=== PATIENT | female | born 2000 | race Caucasian/White ===

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

== ENCOUNTER 2021-01-03 07:07 | Day surgery (SDC) | payer BC ==
[2021-01-03 07:25] LABS: Specific Gravity 1.025 (1.005-1.030)
[2021-01-03] MEDS: Ringers Lactate 1,000 ML IV ONE ×2 (07:30→09:12)
[2021-01-03] MEDS ORDERED: CELECOXIB 100 MG CAPSULE ONE ×2 (08:48→08:51)
[2021-01-03] MEDS ORDERED: ACETAMINOPHEN 500 MG TAB ONE (08:49)
[2021-01-03] MEDS ORDERED: BUPIVACA 0.5%/EPI 0.0005%/PF 30 ML VIAL ONE (08:59)
[2021-01-03] MEDS ORDERED: propofoL 200 MG/20 ML VIAL IV ONE (09:02)
[2021-01-03] MEDS ORDERED: ONDANSETRON 4 MG/2 ML VIAL ONE (09:03)
[2021-01-03] MEDS ORDERED: LIDOCAINE 2% MPF 5 ML VIAL ONE (09:03)
[2021-01-03] MEDS ORDERED: NEOSTIGMINE 1 MG/ML -5 ML ONE (09:03)
[2021-01-03] MEDS ORDERED: MIDAZOLAM HCL 2 MG/2 ML INJ ONE (09:03)
[2021-01-03] MEDS ORDERED: ROCURONIUM 50 MG/5 ML VIAL IV ONE (09:03)
[2021-01-03] MEDS ORDERED: FENTANYL CITR 100 MCG/2 ML ONE (09:03)
[2021-01-03] MEDS ORDERED: GLYCOPYRROLATE 0.2 MG/ML SYR ONE (09:03)
[2021-01-03] MEDS ORDERED: dexAMETHasone 10 MG/ML VIAL ONE (09:12)
[2021-01-03] MEDS ORDERED: LIDOCAINE JELLY 2%- 5 ML TUBE ONE (09:14)
--- NOTE | 2021-01-03 10:03 | P.OP ---
Pre-Op Diagnosis: Chronic tonsillitis, Other (Tonsillhypertrophy) Post-Op Diagnosis: Chronic tonsillitis, Other (Tonsil hypertrophy) Procedure: Tonsillectomy Anesthesia: Other (GA via ETT) Fluids/ Blood products: Other (800ml crystalloid) Estimated blood loss: Other (10ml) Specimen: Other (bilateral tonsils) Findings: large, chronically inflammed tonsils with liths Complications: None Implants: None Indication: Patient persistent issues in spite of good medical management. Details of Operation: The patient was brought to the operating room and placed under general anesthesia via endotracheal tube. The head of bed was turned 90 degrees. A Shoulder roll was placed and the neck extended. A head drape was applied. The McIvor mouth gag was placed and suspended from the Headley stand. The oxygen concentrate was confirmed with the freelance digital project manager and was less than forty percent. Weight-based dexamethasone was administered by the freelance digital project manager. The soft palate was palpated and there was no submucous cleft. A red rubber catheter was placed in the nose and secured to retract the soft palate. The tonsils were noted to be extremely large. The left tonsil was grasped with a straight Allis clamp. The bovie electocautery was used to incision the mucosa over the anterior pillar and identify the tonsillar capsule. The tonsil was dissected using cautery and blunt dissection until free from soft tissue attachments. A tonsil ball was placed to aid hemostasis. The right tonsil was removed in a similar manner. On both upper poles, there was brisk bleeding from an arteriole which was clamped and ligated with an 0-0 vicryl endoloop. Diffuse oozing in the left fossa was treated with epi-soaked tonsil sponge for 5 minutes with resulting hemostasis The laryngeal mirror was used to visualize the nasopharynx. The adenoid size was minimal. The adenoids were not removed. Hemostasis was achieved using packing and cautery as needed. Blood loss was minimal. All packing was removed. The tonsillar fossae were injected with 0.5% Marcaine with epinephrine. A total of 2 mL was used. A Salum sump orogastric tube was used to decompress the stomach. The red rubber catheter was removed and used to suction the nasopharynx and nasal cavity. The mouth gag was removed; there was no evidence of injury to the lips, teeth or tongue. The mandible was mobile. Disposition: The patient was then awakened from anesthesia and taken to the recovery room in stable condition.
[2021-01-03] MEDS ORDERED: EPINEPHRINE/PF 1 MG/ML AMP ONE (10:05)
[2021-01-03] MEDS ORDERED: IBUPROFEN 400 MG TAB ONE (11:39)
[2021-01-03 14:24] VITALS: BP 97/43; TEMP 97.2; O2SAT 97
== END 2021-01-03 12:30 | disposition home or self-care (01) ==
LOC: OR 07:07
PROVIDERS: ATTEND Otolaryngology
PROC: 0CTPXZZ Resection of Tonsils, External Approach (ICD-10-PCS; principal; 2021-01-03 08:15)
DX: J35.1 Hypertrophy of tonsils (principal); R03.0 Elevated blood-pressure reading, without diagnosis of hypertension; Z20.822 Contact with and (suspected) exposure to COVID-19
CPT/HCPCS: 81025; 88304; 42826; U0003; J2704; J0171; J3010; J1100; J2710; J7120; J2405; J2250

== ENCOUNTER 2021-02-22 20:53 | Emergency (ER) | payer BC ==
--- OUTSIDE RECORDS SUMMARY | 2021-02-22 20:57 | XMS REPORT | Continuity of Care Document ---
:2000 Author Organization [facility] t Address [address] [place] [address] Care Team Providers Name Role Phone Idalia Burnham Attending Clinician Unavailable KALEB BURNHAM Attending Clinician Unavailable MOLINA Attending Clinician Unavailable Matos Attending Clinician Brent Whitley DO Attending Clinician Lab, Fam Pob I Attending Clinician Unavailable Altagracia DALTON Attending Clinician ALTAGRACIA Attending Clinician Unavailable Doctor Unassigned, Name Attending Clinician Unavailable Cyndee YUN Attending Clinician Unavailable Katey MART Attending Clinician KATEY Attending Clinician Unavailable Rona Emmanuel PA-C Attending Clinician Rona EMMANUEL Attending Clinician Unavailable Sarita MART Attending Clinician Payers Payer Name Policy Type Policy Number Effective Date Expiration Date S ource Problems Condition Condition Condition Status Onset Resolution Last Treating Co mments Source Name Details Category Date Date Treatment Clinician Date Intrauteri Intrauteri Disease Active 2018-03 U nivers ne ne 1-14 ity of 00:00: Jenna s in in 00 Medical teenager teenager Branch Major Major Disease Active Univers depressive depressive 1-12 it y of disorder disorder 00:00: [place] with with 00 Medical single single Branch episode, episode, in partial in partial remission remission Atopic Atopic Disease Active 2016-03 Univers dermatitis dermatitis 0-31 it y of , , 00:00: [place] unspecifie unspecifie 00 Me dical d type d type Branch Allergies, Adverse Reactions, Alerts Allergy Allergy Status Severity Reaction(s) Onset Inactive Treating Comm ents Source Name Type Date Date Clinician FLUOXETI DRUG Active Hives Univers NE HCL INGREDI 09-27 ity of 00:00: [place] 00 Medical Branch Fluoxeti Propensi Active Rash Univer s ne Hcl ty to 09-27 ity of adverse 00:00: [place] reaction 00 Medical s Branch Social History Social Habit Start Date Stop Date Quantity Comments Source Exposure to Yes [facility] SARS-CoV-2 [place] [facility] (event) Branch Alcohol intake 2019-11-03 2019-11-03 Current University 00:00:00 00:00:00 non-drinker of [facility] alcohol Gleason (finding) Tobacco use and 2019-11-03 2019-11-03 Never used Universit y of exposure 00:00:00 00:00:00 [facility] Sex Assigned At [birth year] Universit y of 00:00:00 00:00:00 [facility] Smoking Status Start Date Stop Date Source Never smoker [facility] Medications Ordered Filled Start Stop Current Ordering Indication Dosage Frequency Signature Comments Components Source Medication Medication Date Date Medication? Clinician (SIG) Name Name ondansetron 2020-0 Yes [id number] 4mg Take 1 Univers 4 mg tablet 8-28 tablet by ity of 00:00: mouth [place] 00 every 8 Medical (eight) Branch hours as needed for Nausea and Vomiting (N/V). ondansetron 2020-0 Yes [id number] 4mg Take 1 Univers 4 mg tablet 8-28 tablet by ity of 00:00: mouth [place] 00 every 8 Medical (eight) Branch hours as needed for Nausea and Vomiting (N/V). ondansetron 2020-0 Yes [id number] 4mg Take 1 Univers 4 mg tablet 8-28 tablet by ity of 00:00: mouth [place] 00 every 8 Medical (eight) Branch hours as needed for Nausea and Vomiting (N/V). ondansetron 2020-0 Yes [id number] 4mg Take 1 Univers 4 mg tablet 8-28 tablet by ity of 00:00: mouth [place] 00 every 8 Medical (eight) Branch hours as needed for Nausea and Vomiting (N/V). ondansetron 2020-0 Yes [id number] 4mg Take 1 Univers 4 mg tablet 8-28 tablet by ity of 00:00: mouth [place] 00 every 8 Medical (eight) Branch hours as needed for Nausea and Vomiting (N/V). ondansetron 2020-0 Yes [id number] 4mg Take 1 Univers 4 mg tablet 8-28 tablet by ity of 00:00: mouth [place] 00 every 8 Medical (eight) Branch hours as needed for Nausea and Vomiting (N/V). Breast Pump 2020-0 Yes [id number] Use as Univers [place] 1-21 directed ity of 00:00: [place] 00 Medical Branch Breast Pump 2020-0 Yes [id number] Use as Univers [place] 1-21 directed ity of 00:00: [place] 00 Medical Branch Breast Pump 2020-0 Yes [id number] Use as Univers [place] 1-21 directed ity of 00:00: [place] 00 Medical Branch Breast Pump 2020-0 Yes [id number] Use as Univers [place] 1-21 directed ity of 00:00: [place] 00 Medical Branch Breast Pump 2020-0 Yes [id number] Use as Univers [place] 1-21 directed ity of 00:00: [place] 00 Medical Branch Breast Pump 2020-0 Yes [id number] Use as Univers [place] 1-21 directed ity of 00:00: [place] 00 Medical Branch Breast Pump 2020-0 Yes [id number] Use as Univers [place] 1-21 directed ity of 00:00: [place] 00 Medical Branch Breast Pump 2020-0 Yes [id number] Use as Univers [place] 1-21 directed ity of 00:00: [place] 00 Medical Branch Breast Pump 2020-0 Yes [id number] Use as Univers [place] 1-21 directed ity of 00:00: [place] 00 Medical Branch Breast Pump 2020-0 Yes [id number] Use as Univers [place] 1-21 directed ity of 00:00: [place] 00 Medical Branch Breast Pump 2020-0 Yes [id number] Use as Univers [place] 1-21 directed ity of 00:00: [place] 00 Medical Branch PNV 2019- Yes Take by Univers no.95/maxwell 1-14 mouth. ity of us 17:14: [place] fum/folic 44 Medical ac Branch ( ORAL) PNV 2019- Yes Take by Univers no.95/maxwell 1-14 mouth. ity of us 17:14: [place] [address] Medical ac Branch ( ORAL) PNV 2019- Yes Take by Univers no.95/maxwell 1-14 mouth. ity of us 17:14: [place] [address] Medical ac Branch ( ORAL) PNV 2019- Yes Take by Univers no.95/maxwell 1-14 mouth. ity of us 17:14: [place] [address] Medical ac Branch ( ORAL) PNV 2019- Yes Take by Univers no.95/maxwell 1-14 mouth. ity of us 17:14: [place] [address] Medical ac Branch ( ORAL) PNV 2019- Yes Take by Univers no.95/maxwell 1-14 mouth. ity of us 17:14: [place] [address] Medical ac Branch ( ORAL) PNV 2019- Yes Take by Univers no.95/maxwell 1-14 mouth. ity of us 17:14: [place] [address] Medical ac Branch ( ORAL) PNV 2019- Yes Take by Univers no.95/maxwell 1-14 mouth. ity of us 17:14: [place] [address] Medical ac Branch ( ORAL) PNV 2019- Yes Take by Univers no.95/maxwell 1-14 mouth. ity of us 17:14: [place] [address] Medical ac Branch ( ORAL) PNV 2019- Yes Take by Univers no.95/maxwell 1-14 mouth. ity of us 17:14: [place] [address] Medical ac Branch ( ORAL) PNV 2019- Yes Take by Univers no.95/maxwell 1-14 mouth. ity of us 17:14: [place] [address] Medical ac Branch ( ORAL) albuterol 2019- Yes [id number] 2{puff} Inhale 2 Univers 90 1-14 Puffs ity of mcg/actuati 00:00: every 6 José Manuel as on inhaler 00 (six) Medical hours as Branch needed for Wheezing, Shortness of Breath or Chest tightness. albuterol 2019- Yes [id number] 2{puff} Inhale 2 Univers 90 1-14 Puffs ity of mcg/actuati 00:00: every 6 José Manuel as on inhaler 00 (six) Medical hours as Branch needed for Wheezing, Shortness of Breath or Chest tightness. albuterol 2018-03 Yes [id number] 2{puff} Inhale 2 Univers 90 1-14 Puffs ity of mcg/actuati 00:00: every 6 José Manuel as on inhaler 00 (six) Medical hours as Branch needed for Wheezing, Shortness of Breath or Chest tightness. albuterol 2018-03 Yes [id number] 2{puff} Inhale 2 Univers 90 1-14 Puffs ity of mcg/actuati 00:00: every 6 José Manuel as on inhaler 00 (six) Medical hours as Branch needed for Wheezing, Shortness of Breath or Chest tightness. albuterol 2018-03 Yes [id number] 2{puff} Inhale 2 Univers 90 1-14 Puffs ity of mcg/actuati 00:00: every 6 José Manuel as on inhaler 00 (six) Medical hours as Branch needed for Wheezing, Shortness of Breath or Chest tightness. albuterol 2018-03 Yes [id number] 2{puff} Inhale 2 Univers 90 1-14 Puffs ity of mcg/actuati 00:00: every 6 José [place] as on inhaler 00 (six) Medical hours as Branch needed for Wheezing, Shortness of Breath or Chest tightness. albuterol 2018-03 Yes [id number] 2{puff} Inhale 2 Univers 90 1-14 Puffs ity of mcg/actuati 00:00: every 6 José [place] as on inhaler 00 (six) Medical hours as Branch needed for Wheezing, Shortness of Breath or Chest tightness. albuterol 2018-03 Yes [id number] 2{puff} Inhale 2 Univers 90 1-14 Puffs ity of mcg/actuati 00:00: every 6 José [place] as on inhaler 00 (six) Medical hours as Branch needed for Wheezing, Shortness of Breath or Chest tightness. albuterol 2018-03 Yes [id number] 2{puff} Inhale 2 Univers 90 1-14 Puffs ity of mcg/actuati 00:00: every 6 José [place] as on inhaler 00 (six) Medical hours as Branch needed for Wheezing, Shortness of Breath or Chest tightness. albuterol 2018-03 Yes [id number] 2{puff} Inhale 2 Univers 90 1-14 Puffs ity of mcg/actuati 00:00: every 6 [place] as on inhaler 00 (six) Medical hours as Branch needed for Wheezing, Shortness of Breath or Chest tightness. albuterol 2019-1 Yes [id number] 2{puff} Inhale 2 Univers 90 1-14 Puffs ity of mcg/actuati 00:00: every 6 [place] as on inhaler 00 (six) Medical hours as Branch needed for Wheezing, Shortness of Breath or Chest tightness. No known No Univers medications ity [facility] No known No Univers medications ity [facility] Immunizations Ordered Filled Immunization Date Status Comments [facility] [place] [facility] e Immunization Name Name HPV9 2015-10-03 Completed University of 00:00:00 [facility] HPV9 2015-10-03 Completed University of 00:00:00 [facility] HPV9 2015-10-03 Completed University of 00:00:00 [facility] HPV9 2015-10-03 Completed University of 00:00:00 [facility] HPV9 2015-10-03 Completed University of 00:00:[address] [facility] HPV9 2015-10-03 Completed University of 00:00:00 [facility] HPV9 2015-10-03 Completed University of 00:00:00 [facility] HPV9 2015-10-03 Completed University of 00:00:00 [facility] HPV9 2015-10-03 Completed University of 00:00:00 [facility] HPV9 2015-10-03 Completed University of 00:00:00 [facility] HPV9 2015-10-03 Completed University of 00:00:00 [facility] HPV9 2015-10-03 Completed University of 00:00:00 [facility] HPV9 2015-10-03 Completed University of 00:00:00 [facility] HPV9 2014-10-16 Completed University of 00:00:00 [facility] HPV9 2014-10-16 Completed University of 00:00:00 [facility] HPV9 2014-10-16 Completed University of 00:00:00 [facility] HPV9 2014-10-16 Completed University of 00:00:00 [facility] HPV9 2014-10-16 Completed University of 00:00:00 [facility] HPV9 2014-10-16 Completed University of 00:00:00 [facility] HPV9 2014-10-16 Completed University of 00:00:00 [place] [facility] HPV9 2014-10-16 Completed University of 00:00:00 [place] [facility] HPV9 2014-10-16 Completed University of 00:00:00 [place] [facility] HPV9 2014-10-16 Completed University of 00:00:00 [place] [facility] HPV9 2014-10-16 Completed University of 00:00:00 [place] [facility] HPV9 2014-10-16 Completed University of 00:00:00 [place] [facility] HPV9 2014-10-16 Completed University of 00:00:00 [facility] Vital Signs Vital Name Observation Time Observation Value Comments Source Systolic blood 2019-11-03 14:03:00 125 mm[Hg] Univer sity of pressure [place] [facility] Diastolic blood 2019-11-03 14:03:00 87 mm[Hg] Unive rsity of pressure [place] [facility] Heart rate 2019-11-03 14:03:00 89 /min Universi ty of [facility] Body temperature 2019-11-03 14:03:00 36.61 Eunice Univ ersity of [place] [facility] Respiratory rate 2019-11-03 14:03:00 18 /min Univ ersity of [place] [facility] Body weight 2019-11-03 14:03:00 95.029 kg Universi ty of [place] [facility] Systolic blood 2019-11-03 14:03:00 125 mm[Hg] Univer sity of pressure [place] [facility] Diastolic blood 2019-11-03 14:03:00 87 mm[Hg] Unive rsity of pressure [place] [facility] Heart rate 2019-11-03 14:03:00 89 /min Universi ty of [place] [facility] Body temperature 2019-11-03 14:03:00 36.61 Eunice Univ ersity of [place] [facility] Respiratory rate 2019-11-03 14:03:00 18 /min Univ ersity of [place] [facility] Body weight 2019-11-03 14:03:00 95.029 kg Universi ty of [place] [facility] Systolic blood 2019-04-25 14:17:00 115 mm[Hg] Univer sity of pressure [place] [facility] Diastolic blood 2019-04-25 14:17:00 75 mm[Hg] Unive rsity of pressure [place] [facility] Heart rate 2019-04-25 14:17:00 78 /min Universi ty of [place] [facility] Body temperature 2019-04-25 14:17:00 36.33 Eunice Univ ersity of [place] [facility] Respiratory rate 2019-04-25 14:17:00 17 /min [facility] Body height 2019-04-25 14:17:00 166.5 cm [facility] Body weight 2019-04-25 14:17:00 96.361 kg [facility] BMI 2019-04-25 14:17:00 34.76 kg/m2 [facility] Oxygen saturation in 2019-04-25 14:17:00 97 /min [facility] Arterial blood by [facility] Pulse oximetry [place] Procedures Procedure Date / Time Performed Performing Clinician Sour e POCT TEST 2019-11-03 14:24:00 Gary Del Toro [facility] POCT URINALYSIS 2019-11-03 14:23:00 KateyGary canela [place] o f [facility] NOTICE OF PRIVACY 2019-11-03 13:56:02 Doctor Unassigned, No Univ [facility] PRACTICES Name [facility] EXTERNAL PROVIDER 2018-11-24 05:01:00 Doctor Unassigned, No Univ [facility] RECORDS Name [facility] Encounters Start End Encounter Admission Attending Care Care Encounter Source Date/Time Date/Time Type Type Clinicians Facility Department ID 2021-02-27 Inpatient Rathnayake, [facility] DAYS [id number] 1-2 [facility] 12:00:00 Khalif [id number] [facility] 2021-02-25 Inpatient EL Tej, [facility] DAYS [id number] 1-2 [facility] 11:00:00 Khalif [id number] [facility] 2021-02-14 2021-02-14 Outpatient JOLANTA BURNHAMSE MHSE [id number] MH 12:55:00 21:50:[address] [facility] 2020-12-04 2020-12-04 Outpatient R DE [facility] [id number] Univers 16:20:00 16:20:00 LALA [id number] esther adame [facility] 2020-06-17 2020-06-17 Telephone de [facility] [id number] 00:00:00 00:00:00 Jarod Raymundo [id number] Stef[facility] [id number] Clinic [id number] 2020-06-17 2020-06-17 Telephone de [facility] 1.2.840.114 [id number] Univers 00:00:00 00:00:00 Jarod Raymundo [id number] ity of [place] [facility] [place]2.[place] [facility] [id number] [facility] 225 Branch 2020-05-28 2020-05-28 Patient Gutierrez [facility] [id number] 00:00:00 00:00:00 Outreach Kai PRIMARY [id number] [facility] 4.2.7.2.686 PAVILLION [id number] 2020-05-28 2020-05-28 Patient Gutierrez [facility] 1.2.840.114 [id number] Univers 00:00:00 00:00:00 Outreach Kai PRIMARY [id number] i ty of [facility] 4.2.7.2.686 [place] [id number] [address] 2020-03-02 2020-03-02 Outpatient R [facility] [id number] Univers 16:15:00 16:15:00 [id number] [facility] 2019-12-02 2019-12-02 Laboratory Lab, [facility] 1.2.840.114 [id number] 14:31:28 14:51:28 Only Fam Pob I Health [id number] [place] 4.2.7.2.686 Professio [id number] [place] [address] Office [facility] 2019-12-02 2019-12-02 Laboratory Lab, [facility] Fam Pob I [facility] 1.2. 840.114 [id number] Univers 14:31:28 14:51:28 Only Green, [facility] [id number] ity of [place] 4.2.7.2.686 José Manuel as Professio [phone] [address] Office Building [facility] 2019-12-02 2019-12-02 Outpatient R [facility] [id number] Univers 14:20:00 14:20:00 [id number] [facility] 2019-12-02 2019-12-02 Outpatient R GREEN, [facility] [id number] Univers 14:20:00 14:20:00 APPLE ity [facility] 2019-12-02 2019-12-02 Letter Doctor NINO 1.2.840.114 [id number] 00:00:00 00:00:00 (Out) Unassigned, NICK [id number] [place] [facility] 4.2.7.2.686 [id number] 2019-12-02 2019-12-02 Letter Doctor NINO 1.2.840.114 [id number] Univers 00:00:00 00:00:00 (Out) Unassigned, NICK [id number] ity of [place] [facility] 4.2.7.2.686 José Manuel as [phone] [address] 2019-11-21 2019-11-21 [facility] [id number] Univers 08:20:00 08:20:00 [facility] 2019-11-21 2019-11-21 Outpatient [facility] [id number] Univers 08:20:00 08:20:00 CAMILLA [id number] [facility] 2019-11-16 2019-11-16 [facility] [id number] Univers 14:00:00 14:00:00 CAMILLA [facility] 2019-11-16 2019-11-16 Outpatient [facility] [id number] Univers 14:00:00 14:00:00 [facility] 2019-11-03 2019-11-03 Office Gary Del Toro [facility] 1.2.840.114 [id number] Univers 08:56:18 09:24:12 Visit Jarod [id number] it y [place] 4[place]2.7.2.686 [place] [facility] [id number] [facility] 225 [place] 2019-11-03 2019-11-03 Office Gary Del Toro [facility] 1.2.840.114 [id number] 08:56:18 09:24:12 Visit Jarod [id number] Pediatric 4.2.7.2.686 Clinic [id number] 2019-11-03 2019-11-03 Outpatient R GARY DEL TORO [facility] [id number] Univers 09:00:00 09:00:00 [id number] ity of [facility] 2019-11-03 2019-11-03 Outpatient R GARY DEL TORO [facility] [id number] Univers 09:00:00 09:00:00 ity of [facility] 2019-11-03 2019-11-03 Orders Doctor ONEILL 1.2.840.114 [id number] Univers 00:00:00 00:00:00 Only Unassigned, NICK [id number] ity of [place] [facility] 4.2.7.2.686 José Manuel as [phone] [address] 2019-09-29 2019-09-29 Outpatient [facility] [id number] Univers 10:00:00 10:00:00 CAMILLA [id number] ity [facility] 2019-09-29 2019-09-29 Outpatient [facility] [id number] Univers 10:00:00 10:00:00 CAMILLA ity [facility] 2019-08-03 2019-08-03 Outpatient R [facility] [id number] Univers 15:40:00 15:40:00 [id number] ity of [facility] 2019-08-03 2019-08-03 Outpatient R [facility] [id number] Univers 15:40:00 15:40:00 ity [facility] 2019-05-29 2019-05-29 Telephone [facility] 1.2.840.11 [id number] Univers 00:00:00 00:00:00 , Margo Olivera [id number] it y of [facility] 4[place]2.7.2.686 [place] [facility] [id number] [facility] 225 [place] 2019-04-25 2019-04-25 Outpatient R [facility] [id number] Univers 08:10:00 08:53:36 MARGO ity [facility] 2019-04-25 2019-04-25 Office [facility] 1.2.840.114 [id number] Univers 08:05:29 08:53:36 Visit , Margo Olivera [id number] it y of Pediatric 4.2.7.2.686 [facility] [id number] [address] 2019-03-28 2019-03-28 Telephone Gary Del Toro [facility] 1.2.840.114 [id number] Univers 00:00:00 00:00:00 Jarod [id number] it y of Pediatric 4.2.7.2.686 [facility] [id number] [address] 2018-11-24 2018-11-24 Orders Doctor NINO 1.2.840.114 [id number] Univers 00:00:00 00:00:00 Only Unassigned, NICK [id number] ity of [place] [facility] 4.2.7.2.686 José Manuel as [id number] [address] 2018-11-15 2018-11-15 Telephone [facility] 1.2.840.11 [id number] Univers 00:00:00 00:00:00 Monica Ervin [id number] ity of Pediatric 4.2.7.2.686 Te [facility] [id number] [address] Results Test Description Test Time Test Comments Results Result Comments Source POCT URINALYSIS W SPECIFIC GRAVITY 2019-11-03 14:24:00 Test Item Value Reference Range Interpretation Comme nts POCT U SP GRAV (test code = 3255) 1.020 mg/dl 1.005-1.025 POCT PH U (test code = 3254) 5 mg/dl 5-8 POCT U LEUK EST (test code = 3263) + Negative - Negative POCT U NIT (test code = 3262) neg Negative - Negative POCT U PROT (test code = 3259) Negative - Negative POCT U GLU (test code = 3256) normal Negative - Negative POCT U KETONE (test code = 3258) neg Negative - Negative POCT U UROBILI (test code = 3260) normal 0.2-1 POCT U BILI (test code = 3261) neg Negative - Negative POCT U BLD (test code = 3257) Negative - Negative POCT U COLOR (test code = 3266) yellow POCT U APPEAR (test code = 3267) dark Lab Interpretation (test code = 38991-1) Normal [id number] 14:24:00 Test Item Value Reference Range Interpretation Comments POCT PREG (test code = 1605) Negative On board controls acceptable with C Yes Line (test code = 3574) POCT PREG LOT # (test code = 3575) POCT PREG TEST DATE (test code = 357) Lab Interpretation (test code = Normal 17486-7) [facility] SPECIFIC [id number] 14:24:00 Test Item Value Reference Range Interpretation Comments POCT U SP GRAV (test code = 1.020 mg/dl 1.005-1.025 3255) POCT PH U (test code = 3254) 5 mg/dl 5-8 POCT U LEUK EST (test code = + Negative - Negative 3263) POCT U NIT (test code = 3262) neg Negative - Negative POCT U PROT (test code = Negative - Negative 3259) POCT U GLU (test code = 3256) normal Negative - Negative POCT U KETONE (test code = neg Negative - Negative 3258) POCT U UROBILI (test code = normal 0.2-1 3260) POCT U BILI (test code = neg Negative - Negative 3261) POCT U BLD (test code = 3257) Negative - Negative POCT U COLOR (test code = yellow 3266) POCT U APPEAR (test code = dark 3267) Lab Interpretation (test code Normal = 83840-0) [facility] [id number] 14:24:00 Test Item Value Reference Range Interpretation Comments POCT PREG (test code = 1605) Negative On board controls acceptable with C Yes Line (test code = 3574) POCT PREG LOT # (test code = 3575) POCT PREG TEST DATE (test code = 357) Lab Interpretation (test code = Normal 11159-0) [facility]
--- NOTE | 2021-02-22 22:47 | ER ---
Nurse's Notes [facility] Name: Milvia Murdock Age: 20 yrs Sex: Female : 2000 Arrival Date: 02/22/2021 Time: 20:59 Bed 9 Private MD: Diagnosis: Contusion of right foot Presentation: 02/22 21:03 Chief complaint: Patient states: she had reconstruction surgery to right foot 02/14/21 bb and about 30 minutes ago she was on a knee scooter and fell landing on her right foot which is now painful and she is concerned about ruining the surgery. Coronavirus screen: At this time, the client does not indicate any symptoms associated with coronavirus-19. Ebola Screen: No symptoms or risks identified at this time. Initial Sepsis Screen: Does the patient meet any 2 criteria? No. Patient's initial sepsis screen is negative. Does the patient have a suspected source of infection? No. Patient's initial sepsis screen is negative. Risk Assessment: Do you want to hurt yourself or someone else? Patient reports no desire to harm self or others. Onset of symptoms was February 22, 2021. 21:03 Method Of Arrival: Wheelchair bb 21:03 Acuity: KULDEEP 4 bb Triage Assessment: 21:07 General: Appears in no apparent distress. uncomfortable, Behavior is calm, cooperative. bb Pain: Complains of pain in right foot. Neuro: Level of Consciousness is awake, alert, obeys commands, Oriented to person, place, time, situation. Cardiovascular: Capillary refill < 3 seconds Patient's skin is warm and dry. Respiratory: Respiratory effort is even, unlabored, Respiratory pattern is regular. GI: No signs and/or symptoms were reported involving the gastrointestinal system. Derm: Skin is pink, warm \T\ dry. Musculoskeletal: splint to right foot in place. 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 - Social history:: Smoking status: Patient denies any tobacco usage or history of. Screenin:00 Abuse screen: Denies threats or abuse. Nutritional screening: No deficits noted. bb Tuberculosis screening: No symptoms or risk factors identified. Fall Risk None identified. Assessment: 22:00 Reassessment: No changes from previously documented assessment. Patient is alert, bb oriented x 3, equal unlabored respirations, skin warm/dry/pink. see triage assessment. 23:20 Reassessment: Patient is alert, oriented x 3, equal unlabored respirations, skin bb warm/dry/pink. splint to right lower leg in place, pt verbalized understanding of and agrees to plan of care discharge instructions given pt assisted to exit via wheelchair accompanied by family. Vital Signs: 21:03 BP 117 / 85; Pulse 66; Resp 16 S; Temp 98.8(O); Pulse Ox 100% on R/A; Weight 99.79 kg bb (R); Height 5 ft. 6 in. (167.64 cm) (R); Pain 5/10; 23:21 BP 112 / 70; Pulse 75; Resp 16 S; Temp 98.7(O); Pulse Ox 98% on R/A; bb 21:03 Body Mass Index 35.51 (99.79 kg, 167.64 cm) bb ED Course: 20:59 Patient arrived in ED. wm 21:07 Triage completed. bb 21:07 Arm band placed on Patient placed in waiting room, Patient notified of wait time. X-ray bb ordered. 21:56 Chris Currie NP is PHCP. pm1 21:56 Oswald Rodriguez MD is Attending Physician. pm1 22:00 Patient has correct armband on for positive identification. Adult w/ patient. bb 22:01 XRAY Foot RIGHT 3 View In Process Unspecified. EDMS 22:01 XRAY Ankle RIGHT 3 view In Process Unspecified. EDMS 23:20 Ruma Yañez, RN is Primary Nurse. bb 23:22 No provider procedures requiring assistance completed. Patient did not have IV access bb during this emergency room visit. Administered Medications: No medications were administered Outcome: 22:47 Discharge ordered by . pm1 23:22 Discharged to home via wheelchair, with family. bb 23:22 Condition: stable 23:22 Discharge instructions given to patient, Instructed on discharge instructions, follow up and referral plans. Demonstrated understanding of instructions, follow-up care. 23:22 Patient left the ED. bb Signatures: Dispatcher [employer] DANIEL Luisard, Ruma, RN RN bb Chris Currie, LINE MAINTAINER SECTION LINE MAINTAINER SECTION pm1 Jessica Rosa
--- NOTE | 2021-02-22 22:47 | EDPHYS ---
Physician Documentation [facility] Name: Milvia Murdock Age: 20 yrs Sex: Female : 2000 Arrival Date: 02/22/2021 Time: 20:59 Bed 9 Private MD: ED Physician Oswald Rodriguez HPI: 02/22 22:45 This 20 yrs old Unknown Female presents to ER via Wheelchair with complaints of Fall pm1 Injury. 22:45 Details of fall: The patient fell from an upright position, on a scooter. Patient was pm1 kneeling on her right knee and the scooter slipped from underneath her. She landed on her right heel, and rolled over to the right side. Patient presenting to the ER with complaints of right foot pain and concerns for wound dehiscence. Patient with reconstructive foot surgery recently. Onset: The symptoms/episode began/occurred just prior to arrival. Associated injuries: The patient sustained right foot, pain. The patient has not experienced similar symptoms in the past. The patient has been recently seen by a physician: yesterday, Dressing change. She contacted her sole buffer regarding the injury and he recommended evaluation in the ER and follow-up in his office on Wednesday. 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 - Social history:: Smoking status: Patient denies any tobacco usage or history of. ROS: 22:45 Constitutional: Negative for fever, chills, and weight loss, Cardiovascular: Negative pm1 for chest pain, palpitations, and edema, Respiratory: Negative for shortness of breath, cough, wheezing, and pleuritic chest pain. 22:45 Skin: Negative for injury, rash, and discoloration, Neuro: Negative for headache, weakness, numbness, tingling, and seizure. 22:45 MS/extremity: Positive for pain, of the right foot. 22:45 All other systems are negative. Exam: 22:45 Skin: Wound recheck: Suture laceration closure: the wound is healing well, the edges pm1 are well approximated, no evidence of dehiscence, no drainage, no erythema, no swelling. 22:45 Constitutional: This is a well developed, well nourished patient who is awake, alert, pm1 and in no acute distress. Head/Face: Normocephalic, atraumatic. 22:45 Back: No spinal tenderness. No costovertebral tenderness. Full range of motion. Skin: Warm, dry with normal turgor. Normal color with no rashes, no lesions, and no evidence of cellulitis. 22:45 Cardiovascular: Exam negative for acute changes, Rate: normal, Rhythm: regular, Pulses: no pulse deficits are appreciated. 22:45 Respiratory: Exam negative for acute changes, respiratory distress, shortness of breath. 22:45 Musculoskeletal/extremity: Extremities: grossly normal except: noted in the right foot: Generalized mild swelling to right foot with no focal tenderness present, the right foot Sensation intact. Vital Signs: 21:03 BP 117 / 85; Pulse 66; Resp 16 S; Temp 98.8(O); Pulse Ox 100% on R/A; Weight 99.79 kg bb (R); Height 5 ft. 6 in. (167.64 cm) (R); Pain 5/10; 23:21 BP 112 / 70; Pulse 75; Resp 16 S; Temp 98.7(O); Pulse Ox 98% on R/A; bb 21:03 Body Mass Index 35.51 (99.79 kg, 167.64 cm) bb MDM: 22:25 Patient medically screened. pm1 22:45 Data reviewed: vital signs. Data interpreted: Pulse oximetry: on room air is 100 %. pm1 Interpretation: normal. Counseling: I had a detailed discussion with the patient and/or guardian regarding: the historical points, exam findings, and any diagnostic results supporting the discharge/admit diagnosis, the need for outpatient follow up, to return to the emergency department if symptoms worsen or persist or if there are any questions or concerns that arise at home, Patient given reassurance that she can follow up with her sole buffer on Wednesday. NO wound dehiscence or infection present and X-ray of right foot without any displacement of hardware present. 22:45 ED course: Surgical wounds evaluated and no dehiscence or signs of infection present. pm1 Dressing replaced with Betadine, nonadherent dressing and ample padding placed for current Orthoglass posterior splint. 22:47 ED course: Patient offered pain medication but she refused because she already has pm1 OxyContin as a prescription at home. 02/22 21:10 Order name: XRAY Foot RIGHT 3 View bb 02/22 21:10 Order name: XRAY Ankle RIGHT 3 view bb Administered Medications: No medications were administered Disposition: 02/23 04:25 Co-signature as Attending Physician, Oswald Rodriguez MD. [email or web address] Disposition Summary: 02/22/21 22:47 Discharge Ordered Location: Home pm1 Problem: new pm1 Symptoms: have improved pm1 Condition: Stable pm1 Diagnosis - Contusion of right foot pm1 Followup: pm1 - With: Emergency Department - When: As needed - Reason: Worsening of condition Followup: pm1 - With: Private Physician - When: 2 - 3 days - Reason: Recheck today's complaints, Continuance of care, Re-evaluation by your physician Discharge Instructions: - Discharge Summary Sheet pm1 - Foot Contusion pm1 Forms: - Medication Reconciliation Form pm1 - Thank You Letter pm1 - Antibiotic Education pm1 - Prescription Opioid Use pm1 Signatures: Dispatcher [employer] EDRuma Soni, RAMIRO RN bb Chris Currie, PLANOGRAPH OPERATOR PLANOGRAPH OPERATOR pm1 Oswald Rodriguez MD MD [email or web address]
[2021-02-22 23:35] VITALS: BP 112/70; TEMP 98.7; O2SAT 98
--- NOTE | 2021-02-24 10:56 | RAD REPORT ---
EXAM DESCRIPTION: RAD - Foot Right 3 View - 02/22/2021 10:01 pm CLINICAL HISTORY: PAIN COMPARISON: Foot Right 3 View dated 01/13/2017; Foot Right 3 View dated 09/26/2014 FINDINGS: Right ankle and right foot - multiple projections are submitted Osteotomy changes with hardware in place present in the calcaneus. Postsurgical changes with apparent bony spacer and hardware plate also noted first tarsal metatarsal joint. No acute finding is demonst rated. Bone detail is mildly obscured due to cast.
--- NOTE | 2021-02-24 10:56 | RAD REPORT ---
EXAM DESCRIPTION: RAD - Ankle Right 3 View - 02/22/2021 10:01 pm CLINICAL HISTORY: PAIN COMPARISON: Ankle Left 3 View dated 03/15/2018 FINDINGS: Right ankle and right foot - multiple projections are submitted Osteotomy changes with hardware in place present in the calcaneus. Postsurgical changes with apparent bony spacer and hardware plate also noted first tarsal metatarsal joint. No acute finding is demonst rated. Bone detail is mildly obscured due to cast.
== END 2021-02-22 23:22 | disposition home or self-care (01) ==
LOC: ER 20:53
DX: S90.31XA Contusion of right foot, initial encounter (principal); W05.1XXA Fall from non-moving nonmotorized scooter, initial encounter; Z88.5 Allergy status to narcotic agent
CPT/HCPCS: 99283

== ENCOUNTER 2021-04-30 19:23 | Emergency (ER) | payer BC ==
--- OUTSIDE RECORDS SUMMARY | 2021-04-30 19:27 | XMS REPORT | Continuity of Care Document ---
:2000 Author Organization [facility] t Address [address] [place] [address] Care Team Providers Name Role Phone MOLINA Primary Care Physician Unavailable Idalia Burnham Attending Clinician Unavailable Marifer RN, T Attending Clinician Unavailable ANIBAL Attending Clinician Unavailable Anibal PARKING MANAGER Attending Clinician Sebastien MART Attending Clinician KALEB BURNHAM Attending Clinician Unavailable MOLINA Attending [...] nivers ne ne 1-14 [place] teenager [...] DRUG Active Hives Univers NE HCL INGREDI 7- ity of 00:00: [place] 00 Medical Branch Fluoxeti Propensi Active Rash Univer s ne Hcl ty to 7-23 ity of adverse 00:00: [place] reaction 00 Medical s Branch Social History Social Habit Start Date Stop Date Quantity Comments Source Exposure to Not sure [facility] SARS-CoV-2 [facility] (event) Branch Alcohol intake 2021-04-16 2021-04-16 Current University 00:00:00 00:00:00 non-drinker of [facility] alcohol [place] (finding) Tobacco use and 2014-09-26 2014-09-26 Never used Universit y of exposure 00:00:00 00:00:00 [facility] Sex Assigned At [birth year] Universit y of 00:00:00 00:00:00 [facility] Smoking Status Start Date Stop Date Source Never smoker [facility] Medications Ordered Filled Start Stop Current Ordering Indication Dosage Frequency Signature Comments Components Source Medication Medication Date Date Medication? Clinician (SIG) Name Name ibuprofen 2021- No [id number] 800mg U nivers (IBU) 04-17 ity of tablet 800 01:42: 01:46 [place] mg 00 :00 Medical [place] ibuprofen 2021- No [id number] 800mg 800 mg, Univers (IBU) 2-10 -10 Oral, ity of tablet 800 01:42: 01:46 ONCE, 1 José Manuel as mg 00 :00 dose, On Medical 04/16/21 Branch at 1944, Routine ibuprofen 2021- No [id number] 600mg U nivers (IBU) 2- 02-10 ity of tablet 600 01:31: 01:42 [place] mg 00 :13 Medical Branch PNV 0 Yes Take by Univers no.95/maxwell 2-09 mouth. ity of us 19:28: [place] fum/folic 08 Medical ac Branch ( ORAL) PNV Yes Take by Univers no.95/maxwell 2-09 mouth. ity of 19:28: [place] fum/folic 08 Medical ac Branch ( ORAL) bromphenira Yes [id number] 5mL Take 5 mL Univers mine-pseudo 2-09 by mouth 4 it y of ephedrine-D 00:00: (four[place] (BROMFED 00 times Medical DM) 2-30-10 daily as Bran ch mg/5 mL needed for syrup Congestion /Allergies or Cough. bromphenira Yes [id number] 5mL Take 5 mL Univers mine-pseudo 2-09 by mouth 4 it y of ephedrine-D 00:00: (four[place] (BROMFED 00 times Medical DM) 2-30-10 daily as Bran ch mg/5 mL needed for syrup Congestion /Allergies or Cough. ondansetron 2020-0 Yes [id number] 4mg Take 1 Univers 4 mg tablet 8-28 tablet by ity of 00:00: mouth [place] 00 every 8 Medical (eight) Branch hours as needed for Nausea and Vomiting (N/V). ondansetron 2020-0 Yes [id number] 4mg Take 1 Univers 4 mg tablet 8-28 tablet by ity of 00:00: mouth [place] 00 every 8 Medical (eight) Branch hours as needed for Nausea and Vomiting (N/V). ondansetron 2020-0 Yes [id number] 4mg Take 1 Univers 4 mg tablet 8-28 tablet by ity of 00:00: mouth [place] 00 every 8 Medical (eight) Branch hours as needed for Nausea and Vomiting (N/V). ondansetron 2020-0 Yes [id number] 4mg Take 1 Univers 4 mg tablet 8-28 tablet by ity of 00:00: mouth [place] 00 every 8 Medical (eight) Branch hours as needed for Nausea and Vomiting (N/V). ondansetron 2020-0 Yes [id number] 4mg Take 1 Univers 4 mg tablet 8-28 tablet by ity of 00:00: mouth [place] 00 every 8 Medical (eight) Branch hours as needed for Nausea and Vomiting (N/V). ondansetron 2020-0 Yes [id number] 4mg Take 1 Univers 4 mg tablet 8-28 tablet by ity of 00:00: mouth [place] 00 every 8 Medical (eight) Branch hours as needed for Nausea and Vomiting (N/V). ondansetron 2020-0 Yes [id number] 4mg Take 1 Univers 4 mg tablet 8-28 tablet by ity of 00:00: mouth [place] 00 every 8 Medical (eight) Branch hours as needed for Nausea and Vomiting (N/V). ondansetron 2020-0 Yes [id number] 4mg Take 1 Univers 4 mg tablet 8-28 tablet by ity of 00:00: mouth [place] 00 every 8 Medical (eight) Branch hours as needed for Nausea and Vomiting (N/V). Breast Pump 2020-0 Yes [id number] Use as Univers [place] 1-21 directed ity of 00:00: [place] 00 Medical Branch Breast Pump 2020-0 Yes [id number] Use as Univers [place] 1-21 directed ity of 00:00: [place] 00 Medical Branch Breast Pump 2020-0 Yes [id number] Use as Univers [place] 1-21 directed ity of 00:00: [place] 00 Medical Branch Breast Pump 2020-0 Yes [id number] Use as Univers [place] 1-21 directed ity of 00:00: [place] 00 Medical Branch Breast Pump 2020-0 Yes [id number] Use as Univers [place] 1-21 directed ity of 00:00: [place] 00 Medical Branch Breast Pump 2020-0 Yes [id number] Use as Univers [place] 1-21 directed ity of 00:00: [place] 00 Medical Branch Breast Pump 2020-0 Yes [id number] Use as Univers [place] 1-21 directed ity of 00:00: [place] 00 Medical Branch Breast Pump 2020-0 Yes [id number] Use as Univers [place] 1-21 directed ity of 00:00: [place] 00 Medical Branch Breast Pump 2020-0 Yes [id number] Use as Univers [place] 1-21 directed ity of 00:00: [place] 00 Medical Branch Breast Pump 2020-0 Yes [id number] Use as Univers [place] 1-21 directed ity of 00:00: [place] 00 Medical Branch Breast Pump 2020-0 Yes [id number] Use as Univers [place] 1-21 directed ity of 00:00: [place] 00 Medical Branch Breast Pump 2020-0 Yes [id number] Use as Univers [place] 1-21 directed ity of 00:00: [place] 00 Medical Branch Breast Pump 2020-0 Yes [id number] Use as Univers [place] 1-21 directed ity of 00:00: [place] 00 Medical Branch PNV 2019- Yes Take by Univers no.95/maxwell 1-14 mouth. ity of us 17:14: [place] fum/folic 44 Medical ac Branch ( ORAL) PNV 2019- Yes Take by Univers no.95/maxwell 1-14 mouth. ity of us 17:14: [place] fum/folic 44 Medical ac Branch ( ORAL) PNV 2019- Yes Take by Univers no.95/maxwell 1-14 mouth. ity of us 17:14: [place] fum/folic 44 Medical ac Branch ( ORAL) PNV 2019- Yes Take by Univers no.95/maxwell 1-14 mouth. ity of us 17:14: [place] fum/folic 44 Medical ac Branch ( ORAL) PNV 2019- Yes Take by Univers no.95/maxwell 1-14 mouth. ity of us 17:14: [place] fum/folic 44 Medical ac Branch ( ORAL) PNV 2019- Yes Take by Univers no.95/maxwell 1-14 mouth. ity of us 17:14: [place] fum/folic 44 Medical ac Branch ( ORAL) PNV 2019-1 Yes Take by Univers no.95/maxwell 1-14 mouth. ity of us 17:14: [place] fum/folic 44 Medical ac Branch ( ORAL) PNV 2019- Yes Take by Univers no.95/maxwell 1-14 mouth. ity of us 17:14: [place] fum/folic 44 Medical ac Branch ( ORAL) PNV 2019- Yes Take by Univers no.95/maxwell 1-14 mouth. ity of us 17:14: [place] fum/folic 44 Medical ac Branch ( ORAL) PNV 2019- Yes Take by Univers no.95/maxwell 1-14 mouth. ity of us 17:14: [place] fum/folic 44 Medical ac Branch ( ORAL) PNV 2018-03 Yes Take by Univers no.95/maxwell 1-14 mouth. ity of us 17:14: [place] fum/folic 44 Medical ac Branch ( ORAL) albuterol 2018-03 Yes [id number] 2{puff} Inhale 2 Univers 90 1-14 Puffs ity of mcg/actuati 00:00: every 6 José [place] as on inhaler 00 (six) Medical hours as Branch needed for Wheezing, Shortness of Breath or Chest tightness. albuterol 2018-03 Yes [id number] 2{puff} Inhale 2 Univers 90 1-14 Puffs ity of mcg/actuati 00:00: every 6 José Manuel as on inhaler 00 (six) Medical hours as Branch needed for Wheezing, Shortness of Breath or Chest tightness. albuterol 2018-03 Yes [id number] 2{puff} Inhale 2 Univers 90 1-14 Puffs ity of mcg/actuati 00:00: every 6 José Manuel as on inhaler 00 (six) Medical hours as Branch needed for Wheezing, Shortness of Breath or Chest tightness. albuterol 2018-03 Yes [id number] 2{puff} Inhale 2 Univers 90 1-14 Puffs ity of mcg/actuati 00:00: every 6 José Manuel as on inhaler 00 (six) Medical hours as Branch needed for Wheezing, Shortness of Breath or Chest tightness. albuterol 2018-03 Yes [id number] 2{puff} Inhale 2 Univers 90 1-14 Puffs ity of mcg/actuati 00:00: every 6 José Manuel as on inhaler 00 (six) Medical hours as Branch needed for Wheezing, Shortness of Breath or Chest tightness. albuterol 2018-03 Yes [id number] 2{puff} Inhale 2 Univers 90 1-14 Puffs ity of mcg/actuati 00:00: every 6 [place] as on inhaler 00 (six) Medical hours as Branch needed for Wheezing, Shortness of Breath or Chest tightness. albuterol 2018-03 Yes [id number] 2{puff} Inhale 2 Univers 90 1-14 Puffs ity of mcg/actuati 00:00: every 6 José Manuel as on inhaler 00 (six) Medical hours as Branch needed for Wheezing, Shortness of Breath or Chest tightness. albuterol 2018-03 Yes [id number] 2{puff} Inhale 2 Univers 90 1-14 Puffs ity of mcg/actuati 00:00: every 6 José Manuel as on inhaler 00 (six) Medical hours as Branch needed for Wheezing, Shortness of Breath or Chest tightness. albuterol 2018-03 Yes [id number] 2{puff} Inhale 2 Univers 90 1-14 Puffs ity of mcg/actuati 00:00: every 6 José Manuel as on inhaler 00 (six) Medical hours as Branch needed for Wheezing, Shortness of Breath or Chest tightness. albuterol 2018-03 Yes [id number] 2{puff} Inhale 2 Univers 90 1-14 Puffs ity of mcg/actuati 00:00: every 6 José Manuel as on inhaler 00 (six) Medical hours as Branch needed for Wheezing, Shortness of Breath or Chest tightness. albuterol 2018-03 Yes [id number] 2{puff} Inhale 2 Univers 90 1-14 Puffs ity of mcg/actuati 00:00: every 6 José Manuel as on inhaler 00 (six) Medical hours as Branch needed for Wheezing, Shortness of Breath or Chest tightness. albuterol 2018-03 Yes [id number] 2{puff} Inhale 2 Univers 90 1-14 Puffs ity of mcg/actuati 00:00: every 6 José [place] as on inhaler 00 (six) Medical hours as Branch needed for Wheezing, Shortness of Breath or Chest tightness. albuterol 2018-03 Yes [id number] 2{puff} Inhale 2 Univers 90 1-14 Puffs ity of mcg/actuati 00:00: every 6 José [place] as on inhaler 00 (six) Medical hours as Branch needed for Wheezing, Shortness of Breath or Chest tightness. No known No Univers medications ity [facility] No known No Univers medications ity [facility] Immunizations Ordered Filled Immunization Date Status Comments [facility] e Immunization Name Name HPV9 2015-10-03 Completed University of 00:00:00 [facility] HPV9 2015-10-03 Completed University of 00:00:00 [facility]9 2015-10-03 Completed University of 00:00:00 [facility] Branch HPV9 2015-10-03 Completed University of 00:00:00 [place] [facility] HPV9 2015-10-03 Completed University of 00:00:00 [place] [facility] HPV9 2015-10-03 Completed University of 00:00:00 [place] [facility] HPV9 2015-10-03 Completed University of 00:00:00 [facility] Branch HPV9 2015-10-03 Completed University of 00:00:00 [facility] Branch HPV9 2015-10-03 Completed University of 00:00:00 [place] [facility] HPV9 2015-10-03 Completed University of 00:00:00 [place] [facility] HPV9 2015-10-03 Completed University of 00:00:00 [facility] Branch HPV9 2015-10-03 Completed University of 00:00:00 [facility] Branch HPV9 2015-10-03 Completed University of 00:00:00 [facility] Branch HPV9 2015-10-03 Completed University of 00:00:00 [facility] Branch HPV9 2015-10-03 Completed University of 00:00:00 [facility] Branch HPV9 2014-10-16 Completed University of 00:00:00 [facility] Branch HPV9 2014-10-16 Completed University of 00:00:00 [facility] Branch HPV9 2014-10-16 Completed University of 00:00:00 [facility] Branch HPV9 2014-10-16 Completed University of 00:00:00 [facility] Branch HPV9 2014-10-16 Completed University of 00:00:00 [facility] Branch HPV9 2014-10-16 Completed University of 00:00:00 [facility] Branch HPV9 2014-10-16 Completed University of 00:00:00 [facility] Branch HPV9 2014-10-16 Completed University of 00:00:00 [facility] Branch HPV9 2014-10-16 Completed University of 00:00:00 [facility] Branch HPV9 2014-10-16 Completed University of 00:00:00 [facility] Branch HPV9 2014-10-16 Completed University of 00:00:00 [facility] Branch HPV9 2014-10-16 Completed University of 00:00:00 [facility] Branch HPV9 2014-10-16 Completed University of 00:00:00 [facility] HPV9 2014-10-16 Completed University of 00:00:00 [facility] HPV9 2014-10-16 Completed University of 00:00:00 [facility] Vital Signs Vital Name Observation Time Observation Value Comments Source Systolic blood 2021-04-17 01:20:00 132 mm[Hg] Univer sity of pressure [place] [facility] Diastolic blood 2021-04-17 01:20:00 87 mm[Hg] Unive rsity of pressure [place] [facility] Heart rate 2021-04-17 01:20:00 122 /min Universi ty of [facility] Body temperature 2021-04-17 01:20:00 38.33 Eunice Univ ersity of [facility] Branch Respiratory rate 2021-04-17 01:20:00 16 /min Univ ersity of [place] [facility] Body height 2021-04-17 01:20:00 167.6 cm Universi ty of [place] [facility] [place] Body weight 2021-04-17 01:20:00 106.142 kg Universi ty of [facility] Branch BMI 2021-04-17 01:20:00 37.77 kg/m2 Universi ty of [facility] Body mass index 2021-04-17 01:20:00 98.01 % Unive rsity of (BMI) [Percentile] [facility] ica Per age and sex Branch Oxygen saturation in 2021-04-17 01:20:00 96 /min University Arterial blood by [facility] Pulse oximetry Branch Systolic blood 2019-11-03 14:03:00 125 mm[Hg] Univer sity of pressure [facility] Branch Diastolic blood 2019-11-03 14:03:00 87 mm[Hg] Unive rsity of pressure [facility] Heart rate 2019-11-03 14:03:00 89 /min Universi ty of [facility] Body temperature 2019-11-03 14:03:00 36.61 Eunice Univ ersity of [facility] Branch Respiratory rate 2019-11-03 14:03:00 18 /min Univ ersity of [place] [facility] Body weight 2019-11-03 14:03:00 95.029 kg Universi ty of [facility] Branch Systolic blood 2019-11-03 14:03:00 125 mm[Hg] Univer sity of pressure [facility] Branch Diastolic blood 2019-11-03 14:03:00 87 mm[Hg] Unive rsity of pressure [facility] Branch Heart rate 2019-11-03 14:03:00 89 /min Universi ty of [facility] Body temperature 2019-11-03 14:03:00 36.61 Eunice Univ ersity of [facility] Respiratory rate 2019-11-03 14:03:00 18 /min Univ ersity of [facility] Body weight 2019-11-03 14:03:00 95.029 kg Universi ty [facility] Systolic blood 2019-04-25 14:17:00 115 mm[Hg] Univer sity of pressure [facility] Diastolic blood 2019-04-25 14:17:00 75 mm[Hg] Unive rsity of pressure [facility] Heart rate 2019-04-25 14:17:00 78 /min Universi ty of [facility] Body temperature 2019-04-25 14:17:00 36.33 Eunice [facility] Res[facility] rate 2019-04-25 14:17:00 17 /min [facility] Body height 2019-04-25 14:17:00 166.5 cm Universi ty [facility] Body weight 2019-04-25 14:17:00 [facility] 2019-04-25 14:17:00 34.76 kg/m2 [facility] Oxygen saturation in 2019-04-25 14:17:00 97 /min [facility] blood by [facility] Pulse oximetry Branch Procedures Procedure Date / Time Performed Performing Clinician Sour e POCT MOLECULAR FLU 2021-04-17 01:29:00 [facility] POCT TEST 2019-11-03 14:24:00 Gary Del Toro [facility] POCT URINALYSIS 2019-11-03 14:23:00 KateyGary canela [place] o f [facility] NOTICE OF PRIVACY 2019-11-03 13:56:02 Doctor Unassigned, No Univ ersity of [place] PRACTICES Name Medical Branch EXTERNAL PROVIDER 2018-11-24 05:01:00 Doctor Unassigned, No [facility] Name Medical Branch Encounters Start End Encounter Admission Attending Care Care Encounter Source Date/Time Date/Time Type Type Clinicians Facility Department ID 2021-02-27 Inpatient DEVAN BurnhamCL DAYS [id number] 1-2 [facility] 12:00:00 Khalif [id number] [facility] 2021-02-25 Inpatient EL Tej HCACL DAYS [id number] 1-2 [facility] 11:00:00 Khalif [id number] [facility] 2021-04-17 2021-04-17 Letter MariferNINO antunez [id number] Univers 00:00:00 00:00:00 (Out) Nataliya Shepard NICK [id number] it y of [facility] [id number] José Manuel as [phone] [address] 2021-04-16 2021-04-16 [facility] [id number] Univers 19:20:00 19:38:01 SHARLENE [place] o f [facility] 2021-04-16 2021-04-16 Urgent Anibal, [facility] 1.2.840. [id number] Univers 19:20:00 19:38:01 [facility] [id number] ity [facility] [id number] José Manuel as GALEN?BLEA [phone] [address] MEDICAL OFFICE BUILDING 2021-04-16 2021-04-16 Outpatient R [facility] [id number] Univers 19:20:00 19:20:00 [id number] ity [facility] 2021-02-14 2021-02-14 Outpatient ZARA BURNHAM MHSE [id number] MH 12:55:00 21:50:[address] [facility] 2020-12-04 2020-12-04 Outpatient R DE [facility] [id number] Univers 16:20:00 16:20:00 LALA [id number] ity [facility] 2020-06-17 2020-06-17 Telephone de [facility] 1.2.840.114 [id number] 00:00:00 00:00:00 Jarod Raymundo [id number] [facility] [id number] [facility] [id number] [facility] 2020-06-17 2020-06-17 Telephone de [facility] 1.2.840.114 [id number] Univers 00:00:00 00:00:00 Jarod Raymundo [id number] ity of [facility] 4.2.7.2.686 [place] [facility] [id number] [facility] 225 Branch 2020-05-28 2020-05-28 Patient Gutierrez [facility] 1.2.840.114 [id number] 00:00:00 00:00:00 Outreach Kai PRIMARY [id number] [facility] 4.2.7.2.686 PAVILLION [id number] 2020-05-28 2020-05-28 Patient Gutierrez [facility] 1.2.840.114 [id number] Univers 00:00:00 00:00:00 Outreach Kai PRIMARY [id number] i ty of [facility] 4.2.7.2.686 [place] [id number] [address] 2020-03-02 2020-03-02 Outpatient R [facility] [id number] Univers 16:15:00 16:15:00 [id number] ity [facility] 2019-12-02 2019-12-02 Laboratory Lab, [facility] 1.2.840.114 [id number] 14:31:28 14:51:28 Only Fam Pob I Health [id number] [place] 4.2.7.2.686 Professio [id number] [place] [address] Office Building [facility] 2019-12-02 2019-12-02 Laboratory Lab, [facility] Fam Pob I [facility] 1.2. 840.114 [id number] Univers 14:31:28 14:51:28 Only Apple Mabry [facility] [id number] ity [facility] 4.2.7.2.686 José Manuel as Professio [id number] [facility] [address] [place] Office Building [facility] 2019-12-02 2019-12-02 Outpatient R [facility] [id number] Univers 14:20:00 14:20:00 [id number] [facility] 2019-12-02 2019-12-02 Outpatient [facility] [id number] Univers 14:20:00 14:20:00 APPLE [facility] 2019-12-02 2019-12-02 Letter Doctor ONEILL 1.2.840.114 [id number] 00:00:00 00:00:00 (Out) Unassigned, NICK [id number] [facility] 4.2.7.2.686 [id number] 2019-12-02 2019-12-02 Letter Doctor NINO 1.2.840.114 [id number] Univers 00:00:00 00:00:00 (Out) Unassigned, NICK [id number] ity of [facility] 4.2.7.2.686 José Manuel as [id number] [address] 2019-11-21 2019-11-21 Outpatient [facility] [id number] Univers 08:20:00 08:20:00 CAMILLA [id number] ity [facility] 2019-11-21 2019-11-21 Outpatient R JAMA [facility] [id number] Univers 08:20:00 08:20:00 CAMILLA [facility] 2019-11-16 2019-11-16 Outpatient [facility] [id number] Univers 14:00:00 14:00:00 [facility] 2019-11-16 2019-11-16 Out[facility] [id number] Univers 14:00:00 14:00:00 CAMILLA [facility] 2019-11-03 2019-11-03 Office Kate[facility] 1.2.840.114 [id number] Univers 08:56:18 09:24:12 Visit Jarod [id number] it y of [place].7.2.686 [place] [facility] [id number] [facility] [address] [place] 2019-11-03 2019-11-03 Office Gary Del Toro [facility] 1.2.840.114 [id number] 08:56:18 09:24:12 Visit Jarod [id number] Pediatric 4.2.7.2.686 Clinic [id number] 2019-11-03 2019-11-03 Outpatient GARY CHING [facility] [id number] Univers 09:00:00 09:00:00 [id number] [facility] 2019-11-03 2019-11-03 Outpatient R GARY DEL TORO [facility] [id number] Univers 09:00:00 09:00:00 ity [facility] 2019-11-03 2019-11-03 Orders Doctor ONEILL 1.2.840.114 [id number] Univers 00:00:00 00:00:00 Only Unassigned, NICK [id number] ity of [place] [facility] 4.2.7.2.686 José Manuel as [id number] [address] 2019-09-29 2019-09-29 Outpatient [facility] [id number] Univers 10:00:00 10:00:00 CAMILLA [id number] ity [facility] 2019-09-29 2019-09-29 Outpatient [facility] [id number] Univers 10:00:00 10:00:00 [facility] 2019-08-03 2019-08-03 Outpatient R [facility] [id number] Univers 15:40:00 15:40:00 [id number] ity [facility] 2019-08-03 2019-08-03 Outpatient R [facility] [id number] Univers 15:40:00 15:40:00 ity [facility] 2019-05-29 2019-05-29 Telephone [facility] 1.2.840.11 [id number] Univers 00:00:00 00:00:00 , Margo Olivera [id number] it y of [place].2.[place] [facility] [id number] [address] 2019-04-25 2019-04-25 Outpatient R [facility] [id number] Univers 08:10:00 08:53:36 , MARGO [facility] 2019-04-25 2019-04-25 Office [facility] 1.2.840.114 [id number] Univers 08:05:29 08:53:36 Visit , Margo Olivera [id number] it y of [facility] 4[place]2.7.2.686 [place] [facility] [facility] [id number] [address] 2019-03-28 2019-03-28 Telephone KateyGary canela [facility] 1.2.840.114 [id number] Univers 00:00:00 00:00:00 Jarod [id number] it y of Pediatric 4.2.7.2.686 Te [facility] [id number] [facility] [address] [place] 2018-11-24 2018-11-24 Orders Doctor NINO 1.2.840.114 [id number] Univers 00:00:00 00:00:00 Only Unassigned, NICK [id number] ity of [facility] 4.2.7.2.686 José Manuel as [id number] [place] [address] Branch 2018-11-15 2018-11-15 Telephone Haberthier- [facility] 1.2.840.11 [id number] Univers 00:00:00 00:00:00 Monica Ervin [id number] ity of Pediatric 4.2.7.2.686 Te [facility] [id number] [address] Results Test Description Test Time Test Comments Results Result Comments Source POCT MOLECULAR FLU 2021-04-17 01:33:49 Test Item Value Reference Range Interpretation Comme nts POCT Molecular FluA (test code = 07522-4) Positive Negative A Lab Interpretation (test code = 50736-3) Abnormal [facility] URINALYSIS W SPECIFIC [id number] 14:24:00 Test Item Value Reference Range Interpretation [...] 3267) Lab Interpretation (test code Normal = 64084-2) [facility] [id number] 14:24:00 Test Item Value Reference Range Interpretation Comments POCT PREG (test code = 1605) Negative On board controls acceptable with C Yes Line (test code = 3574) POCT PREG LOT # (test code = 3575) POCT PREG TEST DATE (test code = 3576) Lab Interpretation (test code = Normal 14436-1) [facility] W SPECIFIC [id number] 14:24:00 Test Item Value Reference Range Interpretation [...] 3267) Lab Interpretation (test code Normal = 88181-4) [facility] [id number] 14:24:00 Test Item Value Reference Range Interpretation Comments POCT PREG (test code = 1605) Negative On board controls acceptable with C Yes Line (test code = 3574) POCT PREG LOT # (test code = 3575) POCT PREG TEST DATE (test code = 3576) Lab Interpretation (test code = Normal 47298-7) [facility]
--- NOTE | 2021-04-30 21:10 | RAD REPORT ---
EXAM DESCRIPTION: US - Extremity Venous Uni Ltd - 04/30/2021 8:50 pm CLINICAL HISTORY: PAIN Leg swelling and edema. COMPARISON: Abdomen Exam Limited dated 01/25/2018No comparisons FINDINGS: Right lower extremity venous system was interrogated with Doppler technique. Normal flow, compressibility and augmentation was noted. There is no DVT present. Poorly defined hypoechoic tissue is seen in the area pain. Masses of unclear etiology and may be postoperative in etiology. IMPRESSION: No evidence of right lower extremity deep venous thrombosis.
--- NOTE | 2021-04-30 21:13 | EDPHYS ---
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 20:11 The patient presents with pain, that is acute. The complaints affect the medial aspect rn of right calf. Onset: The symptoms/episode began/occurred 2 week(s) ago. Modifying factors: The symptoms are alleviated by remaining still, the symptoms are aggravated by movement, weight bearing. Associated signs and symptoms: Pertinent negatives calf tenderness, fever, rash, swelling, warmth, weakness. Severity of symptoms: At their worst the symptoms were mild, in the emergency department the symptoms are unchanged. The patient has not experienced similar symptoms in the past. The patient has not recently seen a physician. Pt reports reconstructive surgery to right foot/ankle, for flat feet, surgery was 2 months ago, here for 2 weeks of right leg pain only around surgical scar/incision. NO fever/weakness/rash/discoloration/drainage. Called her surgeon and told to come in to rule out blood clot. . 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 - Social history:: Smoking status: Patient denies any tobacco usage or history of. - Family history:: not pertinent. - Hospitalizations: : No recent hospitalization is reported. ROS: 20:11 Constitutional: Negative for fever, chills, and weight loss, Cardiovascular: Negative rn for chest pain, palpitations, and edema, Respiratory: Negative for shortness of breath, cough, wheezing, and pleuritic chest pain, Abdomen/GI: Negative for abdominal pain, nausea, vomiting, diarrhea, and constipation, Back: Negative for injury and pain, MS/Extremity: + right medial calf pain near incision. Skin: Negative for injury, rash, and discoloration, Neuro: Negative for headache, weakness, numbness, tingling, and seizure. Exam: 20:11 Constitutional: This is a well developed, well nourished patient who is awake, alert, rn and in no acute distress. Head/Face: Normocephalic, atraumatic. Cardiovascular: Regular rate and rhythm. No pulse deficits. Respiratory: No increased work of breathing, no retractions or nasal flaring. Skin: Warm, dry with normal turgor. Normal color with no rashes, no lesions, and no evidence of cellulitis. Right medial calf with surgical scar, closed, well-healed, no swelling or discoloration noted. MS/ Extremity: Pulses equal, no cyanosis. Neurovascular intact. Full, normal range of motion. Equal circumference. Neuro: Awake and alert, GCS 15 Vital Signs: 19:46 BP 113 / 63; Pulse 107; Resp 16 S; Temp 97.4(TE); Pulse Ox 98% on R/A; Weight 104.33 kg bb (R); Height 5 ft. 6 in. (167.64 cm) (R); Pain 4/10; 20:27 BP 113 / 61; Pulse 85; Resp 18 S; Pulse Ox 100% on R/A; as6 21:00 BP 113 / 73; Pulse 78; Resp 16; Pulse Ox 100% on R/A; st1 19:46 Body Mass Index 37.12 (104.33 kg, 167.64 cm) bb MDM: 19:42 Patient medically screened. rn 21:11 Differential diagnosis: tendonitis, DVT. Data reviewed: vital signs, nurses notes, rn radiologic studies, doppler, and as a result, I will discharge patient. Counseling: I had a detailed discussion with the patient and/or guardian regarding: the historical points, exam findings, and any diagnostic results supporting the discharge/admit diagnosis, radiology results, the need for outpatient follow up, to return to the emergency department if symptoms worsen or persist or if there are any questions or concerns that arise at home. Special discussion: I discussed with the patient/guardian in detail that at this point there is no indication for admission to the hospital. It is understood, however, that if the symptoms persist or worsen the patient needs to return immediately for re-evaluation. ED course: U/S neg for DVT. Will f/u with surgeon for other causes of pain. Just recently started ambulating and reports had tendon surgery with it, might just be tight or neuropathic pain. . 04/30 19:50 Order name: Extremity Venous Uni Ltd US; Complete Time: 21:11 rn Administered Medications: No medications were administered Disposition Summary: 04/30/21 21:12 Discharge Ordered Location: Home rn Problem: an ongoing problem rn Symptoms: are unchanged rn Condition: Stable rn Diagnosis - Pain in right lower leg rn Followup: rn - With: Private Physician - When: As needed - Reason: Recheck today's complaints, Re-evaluation by your physician Discharge Instructions: - Discharge Summary Sheet rn - Musculoskeletal Pain rn Forms: - Medication Reconciliation Form rn - Thank You Letter rn - Antibiotic government documents librarian - Prescription Opioid Use rn Signatures: Dispatcher [employer] Ruma Lima, RAMIRO RN Krunal Owens MD MD rn
--- NOTE | 2021-04-30 21:13 | ER ---
Nurse's Notes [facility] Name: Milvia Murdock Age: 20 yrs Sex: Female : 2000 Arrival Date: 04/30/2021 Time: 19:26 Bed 2 Private MD: Diagnosis: Pain in right lower leg Presentation: 04/30 19:46 Chief complaint: Patient states: she had reconstruction surgery to right foot in February and is experiencing a lot of burning to incision area her surgeon recommended getting a doppler to check for a blood clot. Coronavirus screen: At this time, the client does not indicate any symptoms associated with coronavirus-19. Ebola Screen: No symptoms or risks identified at this time. Initial Sepsis Screen: Does the patient meet any 2 criteria? No. Patient's initial sepsis screen is negative. Does the patient have a suspected source of infection? No. Patient's initial sepsis screen is negative. Risk Assessment: Do you want to hurt yourself or someone else? Patient reports no desire to harm self or others. Onset of symptoms is unknown. 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 - Social history:: Smoking status: Patient denies any tobacco usage or history of. - Family history:: not pertinent. - Hospitalizations: : No recent hospitalization is reported. Screenin:28 Abuse screen: Denies threats or abuse. Denies injuries from another. Nutritional as6 screening: No deficits noted. Tuberculosis screening: No symptoms or risk factors identified. Fall Risk None identified. Assessment: 20:26 General: Appears in no apparent distress. Behavior is calm, cooperative. Pain: as6 Complains of pain in medial aspect of right calf. Derm: Skin temperature is warm surgical scare to inner right calf. Vital Signs: 19:46 BP 113 / 63; Pulse 107; Resp 16 S; Temp 97.4(TE); Pulse Ox 98% on R/A; Weight 104.33 kg bb (R); Height 5 ft. 6 in. (167.64 cm) (R); Pain 4/10; 20:27 BP 113 / 61; Pulse 85; Resp 18 S; Pulse Ox 100% on R/A; as6 21:00 BP 113 / 73; Pulse 78; Resp 16; Pulse Ox 100% on R/A; st1 19:46 Body Mass Index 37.12 (104.33 kg, 167.64 cm) ED Course: 19:26 Patient arrived in ED. ja2 19:37 Tal Nolasco, RN is Primary Nurse. as6 19:42 Krunal Mendez MD is Attending Physician. rn 19:49 Triage completed. bb 19:50 Arm band placed on Patient placed in an exam room, on a stretcher, on pulse oximetry. bb Family accompanied patient. 20:28 Placed in gown. Bed in low position. Call light in reach. Side rails up X2. Adult w/ as6 patient. Pulse ox on. NIBP on. Warm blanket given. 20:50 Extremity Venous Uni Ltd US In Process Unspecified. EDMS 21:18 No provider procedures requiring assistance completed. Patient did not have IV access st1 during this emergency room visit. Administered Medications: No medications were administered Outcome: 21:12 Discharge ordered by . rn 21:23 Discharged to home ambulatory. as6 21:23 Condition: stable 21:23 Discharge instructions given to patient, Instructed on discharge instructions, follow up and referral plans. Demonstrated understanding of instructions, follow-up care. 21:23 Patient left the ED. as6 Signatures: Dispatcher [employer] EDMS Ruma Yañez RN Krunal Taylor MD MD rn Alexander, Jessica ja2 Tal Nolasco, RN RAMIRO as6 Kristine Cheng RN RN st1
[2021-04-30 21:38] VITALS: TEMP 97.4
[2021-04-30 21:40] VITALS: O2SAT 100
[2021-04-30 21:41] VITALS: BP 113/73
== END 2021-04-30 21:23 | disposition home or self-care (01) ==
LOC: ER 19:23
DX: M79.661 Pain in right lower leg (principal); Z88.5 Allergy status to narcotic agent
CPT/HCPCS: 93971; 99283

== ENCOUNTER 2022-01-31 01:18 | Emergency (ER) | payer BC, OTHER ==
--- OUTSIDE RECORDS SUMMARY | 2022-01-31 01:22 | XMS REPORT | Continuity of Care Document ---
:2000 Author Organization [facility] t Address [address] [place] [address] Care Team Providers Name Role Phone NOMAN CHAMPION Primary Care Physician Unavailable Khalif Burnham Attending Clinician Unavailable NOMAN CHAMPION Attending Clinician Unavailable Noman Champion MD Attending Clinician Lab, Ang - Db Attending Clinician Unavailable Phuong Larkin MA Attending Clinician Unavailable 2, Adc Lab Attending Clinician Unavailable Petrona Perez MD Attending Clinician PETRONA PEREZ Attending Clinician Unavailable Doctor Unassigned, [place] Attending Clinician Unavailable Nataliya Caicedo RN Attending Clinician Unavailable REBECCA BARNETT Attending Clinician Unavailable Rebecca Oro Attending Clinician Lucretia Crowe MD Attending Clinician KHALIF BURNHAM Attending Clinician Unavailable Matos, Stefani Attending Clinician Kai Whitley DO Attending Clinician Lab, Adc Fam Pob I Attending Clinician Unavailable Altagracia DALTON, Apple Attending Clinician APPLE FRIAS Attending Clinician Unavailable CAMILLA YUN Attending Clinician Unavailable Katey MART, Gary Attending Clinician GARY DEL TORO Attending Clinician Unavailable Margo Emmanuel PA-C Attending Clinician MARGO EMMANUEL Attending Clinician Unavailable Sarita MART, Monica Attending Clinician Payers Payer Name Policy Type Policy Number Effective Date Expiration Date S ource [place] - [id number] 2016 OUT OF STATE 00:00:00 [place] [id number] 2021 00:00:00 Problems Condition Condition Condition Status Onset Resolution Last Treating Co mments Source Name Details Category Date Date Treatment Clinician Date Other 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 [...] ents Source Name Type Date Date Clinician Fluoxeti Drug Active Hives Univers ne Allergy 5-19 ity of 00:00: [place] 00 Medical Branch FLUOXETI DRUG Active Hives Univers NE INGREDI 5-19 ity of 00:00: 00 Medical Branch fluoxeti DA Active U Rash 2019-03 SJMCm ne 04-05 00:00: 00 Fluoxeti Propensi Active Rash 2017- Univer s ne Hcl ty to 09-27 ity of adverse 00:00: [place] reaction 00 Medical s Branch FLUOXETI DRUG Active Hives Univers NE HCL INGREDI 09-27 ity of 00:00: [place] [address] Medical Branch Social History Social Habit Start Date Stop Date Quantity Comments Source History SDOH University o f Alcohol Frequency [place] M edical Branch History SDPA University o f Alcohol Std [place] Medical Drinks Branch History SDPA University o f Alcohol Binge [place] Medic al Branch History of Passive smoker University of tobacco use [facility] Exposure to 2021-12-07 2021-12-[address] [facility] SARS-CoV-2 00:00:00 13:03:00 [facility] (event) [place] Alcohol intake 2021-10-10 2021-10-10 Current drinker Unive rsity of 00:00:00 00:00:00 of alcohol [facility] (finding) [place] Tobacco use and 2021-10-10 2021-10-10 Smokeless tobacco Un iversity of exposure 00:00:00 00:00:00 non-user [facility] Alcohol Comment 2021-07-21 2021-07-21 ocassional Universit y of 00:00:00 00:00:00 [facility] Sex Assigned At [birth year] Universit y of 00:00:00 00:00:00 [facility] Smoking Status Start Date Stop Date Source Never smoked tobacco [facility] [place] [facility] Medications Ordered Filled Start Stop Current Ordering Indication Dosage Frequency Signature Comments Components Source Medication Medication Date Date Medication? Clinician (SIG) Name Name SERTRALINE 2021-03 Yes [id number] 75mg TAKE 1.5 Univers 50 mg 0-04 TABLETS BY ity of tablet 00:00: MOUTH IN [place] 00 THE Medical MORNING. Branch SERTRALINE 2021-03 Yes [id number] 75mg TAKE 1.5 Univers 50 mg 0-04 TABLETS BY ity of tablet 00:00: MOUTH IN [place] THE Medical MORNING. Branch SERTRALINE 2021-03 Yes [id number] 75mg TAKE 1.5 Univers 50 mg 0-04 TABLETS BY ity of tablet 00:00: MOUTH IN [place] 00 THE Medical MORNING. Branch SERTraline Yes [id number] 75mg Take 1.5 Univers 50 mg 9-07 tablets by ity of tablet 00:00: mouth in [place] 00 the Medical morning. [place] pantoprazol Yes [id number] 40mg Take 1 Univers e 40 mg EC 9-07 tablet by ity of tablet 00:00: mouth in [place] 00 the Medical morning. [place] SERTraline Yes [id number] 75mg Take 1.5 Univers 50 mg 9-07 tablets by ity of tablet 00:00: mouth in [place] 00 the Medical morning. [place] pantoprazol 0 Yes [id number] 40mg Take 1 Univers e 40 mg EC 9-07 tablet by ity of tablet 00:00: mouth in [place] 00 the Medical morning. [place] pantoprazol Yes [id number] 40mg Take 1 Univers e 40 mg EC 9-07 tablet by ity of tablet 00:00: mouth in [place] 00 the Medical morning. [place] pantoprazol Yes [id number] 40mg Take 1 Univers e 40 mg EC 9-07 tablet by ity of tablet 00:00: mouth in [place] 00 the Medical morning. [place] pantoprazol 0 Yes [id number] 40mg Take 1 Univers e 40 mg EC 9-07 tablet by ity of tablet 00:00: mouth in [place] 00 the Medical morning. [place] SERTraline 2021- No [id number] 75mg Take 1.5 Univers 50 mg 9-07 10-04 tablets by ity of tablet 00:00: 00:00 mouth in [place] 00 :00 the Medical morning. [place] SERTRALINE Yes [id number] TAKE 1 U nivers 50 mg 8-29 TABLET BY ity of tablet 00:00: MOUTH [place] 00 EVERY DAY Medical IN THE [place] MORNING SERTRALINE Yes [id number] TAKE 1 U nivers 50 mg 8-29 TABLET BY ity of tablet 00:00: MOUTH [place] 00 EVERY DAY Medical IN THE [place] MORNING SERTRALINE 2021- No [id number] TAKE 1 Univers 50 mg 8-29 10-04 TABLET BY ity of tablet 00:00: 00:00 MOUTH [place] 00 :00 EVERY DAY Medical IN THE [place] MORNING Immunizations Ordered Filled Immunization Date Status Comments [facility] e Immunization Name Name Influenza Virus 2021-12-17 Completed Universit y of Vaccine Quad IM, 00:00:00 [place] Me dical Preserv and ABX Branch Free 6 MO-64 YRS Influenza Virus 2021-12-17 Completed Universit y of Vaccine Quad IM, 00:00:00 [place] Me dical Preserv and ABX Branch Free 6 MO-64 YRS SARS-COV-2 COVID-19 2020-07-31 Completed Unive rsity of MODERNA 12+ YRS 00:00:00 [place] Med ical VACCINE Branch SARS-COV-2 COVID-19 2020-07-31 Completed Unive rsity of MODERNA 12+ YRS 00:00:00 [place] Med ical VACCINE Branch SARS-COV-2 COVID-19 2020-07-31 Completed Unive rsity of MODERNA 12+ YRS 00:00:00 [place] Med ical VACCINE Branch SARS-COV-2 COVID-19 2020-07-31 Completed Unive rsity of MODERNA 12+ YRS 00:00:[address] [place] [facility] ical VACCINE Branch SARS-COV-2 COVID-19 2020-07-31 Completed Unive rsity of MODERNA 12+ YRS 00:00:[address] [place] [facility] ical VACCINE Branch SARS-COV-2 COVID-19 2020-07-04 Completed Unive rsity of MODERNA 12+ YRS 00:00:[address] [place] [facility] ical VACCINE Branch SARS-COV-2 COVID-19 2020-07-04 Completed Unive rsity of MODERNA 12+ YRS 00:00:[address] [place] [facility] ical VACCINE Branch SARS-COV-2 COVID-19 2020-07-04 Completed Unive rsity of MODERNA 12+ YRS 00:00:00 [facility] ical VACCINE Branch SARS-COV-2 COVID-19 2020-07-04 Completed Unive rsity of MODERNA 12+ YRS 00:00:[address] [place] [facility] ical VACCINE Branch SARS-COV-2 COVID-19 2020-07-04 Completed Unive rsity of MODERNA 12+ YRS 00:00:00 [facility] ical VACCINE Branch TDAP 2019-01-08 Completed University of 00:00:00 [facility] Influenza Virus 2019-01-08 Completed Universit y of Vaccine Quad .5 mL 00:00:00 [facility] IM 6+ MO Branch TDAP 2019-01-08 Completed University 00:00:00 [facility] Influenza Virus 2019-01-08 Completed Universit y of Vaccine Quad .5 mL 00:00:00 [facility] IM 6+ MO Branch TDAP 2019-01-08 Completed University of 00:00:00 [facility] Influenza Virus 2019-01-08 Completed Universit y of Vaccine Quad .5 mL 00:00:00 [facility] IM 6+ MO Branch TDAP 2019-01-08 Completed University of 00:00:00 [facility] Influenza Virus 2019-01-08 Completed Universit y of Vaccine Quad .5 mL 00:00:00 [facility] IM 6+ MO Branch TDAP 2019-01-08 Completed University of 00:00:00 [facility] Influenza Virus 2019-01-08 Completed Universit y of Vaccine Quad .5 mL 00:00:00 [facility] 6+ MO Branch HPV9 2015-10-03 Completed University of 00:00:00 [facility] HPV9 2015-10-03 Completed University of 00:00:00 [facility] Branch HPV9 2015-10-03 Completed University of 00:00:00 [facility] Branch HPV9 2015-10-03 Completed University of 00:00:00 [facility] Branch HPV9 2015-10-03 Completed University of 00:00:00 [place] [facility] HPV9 2014-10-16 Completed University of 00:00:00 [place] [facility] HPV9 2014-10-16 Completed University of 00:00:00 [facility] Branch HPV9 2014-10-16 Completed University of 00:00:00 [facility] Branch HPV9 2014-10-16 Completed University of 00:00:00 [facility] Branch HPV9 2014-10-16 Completed University of 00:00:00 [facility] Vital Signs Vital Name Observation Time Observation Value Comments Source Systolic blood 2021-12-17 18:11:00 99 mm[Hg] Univer sity of [facility] [place] [facility] Branch Diastolic blood 2021-12-17 18:11:00 62 mm[Hg] Unive rsity [facility] Branch Heart rate 2021-12-17 18:11:00 70 /min [facility] Body height 2021-12-17 18:11:00 167.6 cm [facility] Body weight 2021-12-17 18:11:00 107.049 kg [facility] BMI 2021-12-17 18:11:00 38.09 kg/m2 [facility] Systolic blood 2021-11-12 21:27:00 110 mm[Hg] Juan goncalves [facility] Diastolic blood 2021-11-12 21:27:00 63 mm[Hg] Hadley sher [facility] Heart rate 2021-11-12 21:27:00 89 /min [facility] Body height 2021-11-12 21:27:00 167.6 cm [facility] Body weight 2021-11-12 21:27:00 108.41 kg [facility] BMI 2021-11-12 21:27:00 38.58 kg/m2 [facility] Procedures Procedure Date / Time Performed Performing Clinician Sourc e FLU VACC ([id number]), 2021-12-17 18:19:14 Noman Champion [facility] 6 MO-64 YRS, .5ML, Medical Branc h IM, QUAD (FLUCELVAX) Encounters Start End Encounter Admission Attending Care Care Encounter Source Date/Time Date/Time Type Type Clinicians Facility Department ID 2021-02-25 Inpatient [id number] [facility] 11:00:00 Khalif 80 [facility] 2020-02-04 Inpatient [facility] [id number] [facility] 05:53:00 72 2021-12-17 2021-12-17 Outpatient Idalia CHAMPION [facility] [id number] [facility] 13:00:00 13:26:08 NOMAN santana [facility] 2021-12-17 2021-12-17 Office [facility] [id number] Univers 13:00:00 13:26:08 Visit [facility] [id number] it y of Vikas AIRZMENDI [id number] José Manuel as GALEN?BLEA [phone] [address] MEDICAL OFFICE BUILDING 2021-12-09 2021-12-09 [facility] [id number] Univers 00:00:00 00:00:00 [facility] [id number] it y of Edward [place] [id number] José Manuel as GALEN?BLEA [phone] In jaycee HYDE 044 [facility] OFFICE [facility] 2021-11-12 2021-11-12 Office [facility] [id number] Univers 16:15:00 16:30:00 Visit [facility] [id number] it y of [place] [id number] José Manuel as GALEN?BLEA [phone] In jaycee HYDE [address] [place] [address] 2021-11-12 2021-11-12 Outpatient R [facility] [id number] Univers 16:15:00 16:15:00 [facility] 2021-11-12 2021-11-12 Outpatient [facility] [id number] Univers 16:15:00 16:15:00 [facility] 2021-11-11 2021-11-11 Outpatient [facility] [id number] Univers 09:15:00 09:15:00 [facility] 2021-11-01 2021-11-01 [facility] [id number] Univers 00:00:00 00:00:00 [facility] [id number] it y of [place] [id number] José Manuel as GALEN?BLEA [phone] In jaycee HYDE [address] [facility] 2021-10-10 2021-10-10 Industrial Relations Manager Lab, [facility] 1.2.840.1 [id number] Univers 10:00:00 10:15:00 Visit Noman Champion [facility] [id number] .[id number] ity of [place] [id number] José Manuel as GALEN?BLEA [phone] In jaycee HYDE 353 [facility] OFFICE [facility] 2021-10-10 2021-10-10 Office [facility] [id number] Univers 09:30:00 10:00:00 Visit [facility] [id number] it y of [place] [id number] José Manuel as GALEN?BLEA [phone] In dical BARRETT 044 [facility] OFFICE [facility] 2021-10-10 2021-10-10 Outpatient R AKIRA [facility] [id number] Univers 09:30:00 09:55:10 NOMAN y [facility] 2021-10-10 2021-10-10 Outpatient R AKIRA [facility] [id number] Univers 09:30:00 09:30:00 NOMAN ity [facility] 2021-10-03 2021-10-03 Pre Visit ENRIQUE Larkin [id number] Univers 00:00:00 00:00:00 Outreach Phuong MORRISON [id number] ity [facility] [id number] [place] [phone] [facility] [address] [place] [address] 2021-07-21 2021-07-21 Industrial Relations Manager 2, Adc Lab [facility] 1..840.114 [id number] Univers 16:15:00 16:30:00 Visit Petrona Perez [id number] ity of [facility] [id number] PROF[place] [phone] In syedbaldev VELOZ 353 [facility] 2021-07-21 2021-07-21 Outpatient R PETRONA PEREZ [facility] [id number] Univers 16:15:00 16:15:00 ity [facility] 2021-07-21 2021-07-21 Office Petrona Perez [facility] [id number] Univers 15:30:00 16:04:18 Visit Earnest ARIZMENDI [id number] i ty of [facility] 4.2.7.2.[place] PROF[place] [phone] In dicbaldev VELOZ 134 [facility] 2021-07-21 2021-07-21 Outpatient R PETRONA PEREZ [facility] [id number] Univers 15:30:00 16:04:18 ity [facility] 2021-07-21 2021-07-21 Orders Doctor ONEILL 1.2.840.114 [id number] Univers 00:00:00 00:00:00 Only Unassigned, NICK [id number] [facility] 4.2.7.2.686 José Manuel as [phone] [facility] 009 Branch 2021-07-04 2021-07-04 Outpatient Idalia CHAMPION [facility] [id number] Univers 13:30:00 13:30:00 NOMAN ity of [facility] 2021-04-17 2021-04-17 Letter NINO Caicedo 1.2.840.114 [id number] Univers 00:00:00 00:00:00 (Out) Nataliya Shepard NICK [id number] it y of [facility] 4.2.7.2.686 José Manuel as [phone] [facility] 019 Branch 2021-04-16 2021-04-16 Outpatient Idalia BARNETT [facility] [id number] Univers 19:20:00 19:38:01 REBECCA santana o f [facility] 2021-04-16 2021-04-16 Urgent Karen Barnetttany [facility] 1.2.840. 114 [id number] Univers 19:20:00 19:38:[address] [facility] [id number] ity of [place] 4.2.7.2.686 José Manuel as GALEN?BLEA [phone] [address] MEDICAL OFFICE BUILDING 2021-02-14 2021-02-14 Outpatient JOLANTA BURNHAMSE MHSE [id number] MH 12:55:00 21:50:[address] [facility] 2020-06-17 2020-06-[address] [facility] 1.2.840.114 [id number] 00:00:00 00:00:00 Jarod Raymundo [id number] [place] [facility] 4.2.7.2.686 Clinic [id number] [facility] 2020-06-17 2020-06-[address] [facility] 1.2.840.114 [id number] Univers 00:00:00 00:00:00 Jarod Raymundo [id number] ity of [place] [facility] [place].2.686 [place] [facility] [id number] [facility] 225 Branch 2020-05-28 2020-05-28 [facility] 1.2.840.114 [id number] 00:00:00 00:00:00 Outreach Kai PRIMARY [id number] [place] CARE 4.2.7.2.686 PAVILLION [id number] 388 2020-05-28 2020-05-28 [facility] 1.2.840.114 [id number] Univers 00:00:00 00:00:00 Outreach Kai PRIMARY [id number] i ty of [place]2.7.2.[place]AV[place] [phone] In dical [address] [place] [address] 2020-02-04 2020-02-04 Emergency [facility] [id number] [facility] 05:53:00 05:53:00 2019-12-02 2019-12-02 Laboratory Lab, [facility] 1.2.840.114 [id number] 14:31:28 14:51:28 Only Fam Pob I Health [id number] [place] 4.2.7.2.686 Professio [id number] nal [facility] Office [facility] 2019-12-02 2019-12-02 Laboratory Lab, [facility] Fam Pob I [facility] 1.2. 840.114 [id number] Univers 14:31:28 14:51:28 Only Apple [facility] [id number] ity [facility] 4.2.7.2.686 José Manuel as Professio [phone] [address] Office Building [facility] 2019-12-02 2019-12-02 Outpatient R ALTAGRACIA [facility] [id number] [facility] 14:20:00 14:20:00 APPLE ity of [facility] 2019-12-02 2019-12-02 Letter Doctor ONEILL 1.2.840.114 [id number] 00:00:00 00:00:00 (Out) UnassignedNICK [id number] [place] [facility] 4.2.7.2.686 [id number] 044 2019-12-02 2019-12-02 Letter Doctor ONEILL 1.2.840.114 [id number] Univers 00:00:00 00:00:00 (Out) UnassignedNICK [id number] ity of [place] [facility] 4.2.7.2.686 José Manuel as [phone] [facility] 044 Branch 2019-11-21 2019-11-21 Outpatient R JAMA [facility] [id number] Univers 08:20:00 08:20:00 CAMILLA santana [facility] 2019-11-16 2019-11-16 Outpatient R JAMA [facility] [id number] Univers 14:00:00 14:00:00 CAMILLA ity [facility] 2019-11-03 2019-11-[address] [facility] 1.2.840.114 [id number] 08:56:18 09:24:12 Visit Jarod [id number] Pediatric 4.2.7.2.686 Clinic [id number] [facility] 2019-11-03 2019-11-[address] [facility] 1.2.840.114 [id number] Univers 08:56:18 09:24:12 Visit Jarod 350.1.13.10 it y of [place].7.2.686 [place] [facility] [id number] [facility] 225 [place] 2019-11-03 2019-11-03 Outpatient R GARY DEL TORO [facility] [id number] Univers 09:00:00 09:00:00 ity [facility] 2019-11-03 2019-11-03 Orders Doctor ONEILL 1.2.840.114 [id number] Univers 00:00:00 00:00:00 Only Unassigned, NICK 350.1.13.10 ity of [place] [facility] 4.2.7.2.686 José Manuel as [phone] [facility] 009 Branch 2019-09-29 2019-09-29 Outpatient R JAMA [facility] [id number] Univers 10:00:00 10:00:00 CAMILLA kiley [facility] 2019-08-03 2019-08-03 Outpatient R [facility] [id number] Univers 15:40:00 15:40:00 ity [facility] 2019-05-29 2019-05-[address] [facility] 1.2.840.11 [id number] Univers 00:00:00 00:00:00 , Margo Olivera 350.1.13.10 it y of [place]2.7.2.686 [place] [facility] [phone] [address] 2019-04-25 2019-04-25 [facility] [id number] [facility] 08:10:00 08:53:36 , MARGO ity of [facility] 2019-04-25 2019-04-25 Office [facility] 1.2.840.114 [id number] [facility] 08:05:29 08:53:36 Visit , Margo Olivera 350.1.13.10 it y of [place]2.7.2.686 [place] [facility] [id number] [address] 2019-03-28 2019-03-[address] [facility] 1.2.840.114 [id number] [facility] 00:00:00 00:00:00 Jarod 350.1.13.10 it y of [place]2.7.2.686 [place] [facility] [id number] [address] 2018-11-24 2018-11-24 Orders Doctor NINO 1.2.840.114 [id number] Univers 00:00:00 00:00:00 Only UnassignedNICK 350.1.13.10 ity of [place] [facility] 4.2.7.2.686 José Manuel as [phone] [address] 2018-11-15 2018-11-15 Telephone [facility] 1.2.840.11 [id number] Univers 00:00:00 00:00:00 Monica Ervin 350.1.13.10 ity of [place].7.2.686 [place] [facility] [phone] [address] Results Test Description Test Time Test Comments Results Result Comments Source UA, Urinalysis Rflx Cult/Sedmt 2020-02-04 06:35:00 Test Item Value Reference Range Interpretation Comme nts Color,Urine (test code = UCOL) Yellow Yellow Clarity,Urine (test code = UCLAR) Clear Clear PH,Urine (test code = UPH.XX) 7.0 5.5-8.5 Specific [place],Urine (test code = USG) 1.020 1.005-1.030 N Blood,Urine (test code = UBLD) Trace-intact cells/uL Negative A Protein,Urine (test code = UPRO) Negative mg/dL Negative Glucose,Urine (UA) (test code = UGLU) Negative mg/dL Negative Ketones,Urine (test code = UKET) Negative mg/dL Negative Nitrate,Urine (test code = UNIT) Negative Negative Bilirubin,Urine (test code = UBIL) Negative mg/dL Negative Urobilinogen,Urine (test code = UURO) 0.2 mg/dL Negative Leukocyte Esterase,Urine (test code = ULEU) Small cells/uL Negative A Urine [id number] 06:35:00 Test Item Value Reference Range Interpretation Comments RBC,Urine (test code = URBC.XX) 0-2 /HPF None Seen WBC,Urine (test code = UWBC.XX) 0-5 /HPF None Seen Squamous Epithelial Cell,Urine 0-5 /HPF None Seen (test code = USQEPI.XX) Bacteria,Urine (test code = UBACT) Trace /HPF None Seen A Complete Blood Count Auto [id number] 06:35:00 Test Item Value Reference Range Interpretation Comments White Blood Count (test code = 9.0 x10 3/uL 4.4-10.5 N WBCT) Red Blood Count (test code = 4.98 x10 6/uL 3.75-5.20 N RBC) Hemoglobin (test code = HGBT) 12.8 g/dL 12.2-14.8 N Hematocrit (test code = HCTT) 40.9 % 36.5-44.4 N Mean Corpuscular Volume (test 82.10 fL 80.00-100.00 N code = MCV) Mean Corpuscular Hemoglobin 25.7 pg 27.0-32.5 L (test code = MCH) Mean Corpuscular HGB Conc 31.30 g/dL 32.00-37.50 L (test code = MCHC) RDW Coefficient of Variation 15.4 % 11.5-14.5 H (test code = RDWCV) Platelet Count (test code = 182.0 x10 3/uL 140.0-440.0 N PLTT) Mean Platelet Volume (test 12.8 fL code = MPV) Immature Granulocytes % (Auto) 0.3 % 0.0-5.0 N (test code = IMMGRAN%) Neutrophils % (Auto) (test 67.9 % 36.0-70.0 N code = NE%) Lymphocytes % (Auto) (test 24.7 % 12.0-44.0 N code = LY%) Monocytes % (Auto) (test code 5.7 % 0.0-11.0 N = MO%) Eosinophils % (Auto) (test 1.2 % 0.0-7.0 N code = EO%) Basophils % (Auto) (test code 0.2 % 0.0-2.0 N = BA%) Immature Granulocytes # (Auto) 0.03 x10 3/uL (test code = IMMGRAN#) Neutrophils # (Auto) (test 6.1 x10 3/uL 1.6-7.4 N code = NE#) Lymphocytes # (Auto) (test 2.22 x10 3/uL 0.50-4.60 N code = LY#) Monocytes # (Auto) (test code 0.51 x10 3/uL 0.00-1.20 N = MO#) Eosinophils # (Auto) (test 0.11 x10 3/uL 0.00-0.74 N code = EO#) Basophils # (Auto) (test code 0.02 x10 3/uL 0.00-0.21 N = BA#) nRBC Abs (test code = NRBCA) 0 nRBC Pct (test code = NRBCP) 0 % Comprehensive Metabolic [id number] 06:35:00 Test Item Value Reference Range Interpretation Comments SODIUM (test code = NA) 138.0 mmol/L 136.0-145.0 N Potassium,K (test code = K) 4.1 mmol/L 3.0-5.1 N Chloride (test code = CL) 104 mmol/L 98-107 N Carbon Dioxide (test code = 29 mmol/L 20-31 N CO2) Anion Gap (test code = GAP) 5 mmol/L 5-15 N Blood Urea Nitrogen (test code 7 mg/dL 9-23 L = BUN) Creatinine (test code = CREATT) 0.50 mg/dL 0.55-1.02 L Creatinine Clr Calc Pharmacy 210.99 mL/min (test code = CRCLPHA) Estimated GFR ( Funmi > 60 mL/min/1.73m2 (test code = EGFRAA) Estimated GFR (Non Afr Funmi > 60 mL/min/1.73m2 (test code = EGFRNAA) BUN/Creatinine Ratio (test code 14 ratio 10-20 N = BCRATIO) Glucose (test code = GLU) 97 mg/dL 74-106 N Osmolality,Calculated (test 283.5 code = OSMOC) Calcium (test code = CA) 9.1 mg/dL 8.3-10.6 N Bilirubin,Total (test code = 0.3 mg/dL 0.2-1.1 N BILIT) Aspartate Amino Transferase 17 U/L 0-34 N (test code = AST) Alanine Aminotransferase (test 16 U/L 10-49 N code = ALT) Total Protein (test code = TP) 6.1 g/dL 5.7-8.2 N Albumin Level (test code = ALB) 4.5 g/dL 3.2-4.8 N Globulin (test code = GLOB) 1.6 mg/dL 2.3-3.5 L Albumin/Globulin Ratio (test 2.8 ratio 0.8-2.0 H code = AGRATIO) Alkaline Phosphatase (test code 57 U/L 46-116 N = ALP) Ethanol [id number] 06:35:00 Test Item Value Reference Range Interpretation Comments Ethanol (test code = ETOH) < 3 mg/dL Drug Screen,[id number] 06:34:00 Test Item Value Reference Range Interpretation Comments PCP Phencyclidine Negative Negative Screen,Urine (test code = PCPU) Amphetamine Screen,Urine Negative Negative (test code = AMPU) Methadone Screen,Urine Negative Negative (test code = METHU) Opiate Screen,Urine (test Negative Negative code = UOPIS) Barbituates Screen,Urine Negative Negative (test code = BARBU) Benzodiazepines Negative Negative Screen,Urine (test code = UBENZS) Cocaine Screen,Urine (test Negative Negative code = UCOCS) Cannabinoid Screen,Urine Negative RES ULTS TO FOLLOW (test code = UTHCS) Propoxyphene Screen, Urine Negative Negative (test code = UPROP) HCG, Urine Qual (LAB)2020-02-04 06:34:00 Test Item Value Reference Range Interpretation Comments HCG, Urine, Qual (test code = HCGU) Positive Negative
[2022-01-31] MEDS ORDERED: KETOROLAC 30 MG/ML INJ ONE (02:01)
[2022-01-31 02:22] LABS: Absolute Lymphocytes (CBC) 2.6 K/uL (0.7-4.9); Hematocrit 38.9 % (36.0-45.0); MCV 74.9 fL (80-100)
[2022-01-31 02:22] LABS: Urine Blood Negative (Negative); Urine Glucose Negative (Negative); Urine Protein Negative (Negative); Urine Specific Gravity >=1.030 (1.005-1.030); Urine pH 6.5 (5.0-7.0)
[2022-01-31 02:29] LABS: Urine Specific Gravity/Preg >1.030 (1.005-1.030)
[2022-01-31 03:21] LABS: Potassium 3.6 mmol/L (3.5-5.1); Troponin High Sensitivity 6.1 pg/mL (<58.9)
--- NOTE | 2022-01-31 03:25 | ER ---
Nurse's Notes [facility] Name: Milvai Murdock Age: 21 yrs Sex: Female : 2000 Arrival Date: 01/31/2022 Time: 01:21 Bed 7 Private MD: Diagnosis: Chest pain, unspecified Presentation: 01/31 01:26 Chief complaint: Patient states: C/o chest pain since yesterday, states hurts worse ll3 when taking a deep breath. Coronavirus screen: Vaccine status: Patient reports receiving the 2nd dose of the covid vaccine. At this time, the client does not indicate any symptoms associated with coronavirus-19. Ebola Screen: No symptoms or risks identified at this time. Initial Sepsis Screen: Does the patient meet any 2 criteria? No. Patient's initial sepsis screen is negative. Does the patient have a suspected source of infection? No. Patient's initial sepsis screen is negative. Risk Assessment: Do you want to hurt yourself or someone else? Patient reports no desire to harm self or others. Onset of symptoms was January 30, 2022. 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 - Social history:: Smoking status: Patient denies any tobacco usage or history of. - Family history:: not pertinent. - Hospitalizations: : No recent hospitalization is reported. Screenin:42 Abuse screen: Denies threats or abuse. Denies injuries from another. Nutritional kd3 screening: No deficits noted. Tuberculosis screening: No symptoms or risk factors identified. Fall Risk IV access (20 points). Assessment: 02:41 General: Appears in no apparent distress. Behavior is calm, cooperative. Pain: Pain kd3 does not radiate. Pain began gradually. Neuro: Level of Consciousness is awake, alert, obeys commands, Oriented to person, place, time, situation. Cardiovascular: Reports chest pain. Cardiovascular: Patient's skin is warm and dry. Respiratory: Airway is patent Trachea midline Respiratory effort is even, unlabored, Respiratory pattern is regular, symmetrical. 03:33 Reassessment: Patient appears in no apparent distress at this time. Patient and/or jb4 family updated on plan of care and expected duration. Pain level reassessed. Patient is alert, oriented x 3, equal unlabored respirations, skin warm/dry/pink. Patient states feeling better. Vital Signs: 01:26 BP 131 / 67; Pulse 84; Resp 16; Temp 98.2(O); Pulse Ox 100% on R/A; Weight 104.33 kg ll3 (R); Height 5 ft. 7 in. (170.18 cm) (R); Pain 4/10; 02:41 BP 110 / 65; Pulse 61; Resp 19; Pulse Ox 98% on R/A; kd3 03:33 BP 113 / 71; Pulse 67; Resp 21; Pulse Ox 100% on R/A; jb4 01:26 Body Mass Index 36.02 (104.33 kg, 170.18 cm) ll3 ED Course: 01:21 Patient arrived in ED. bp1 01:22 Krunal Mendez MD is Attending Physician. rn 01:28 Triage completed. ll3 01:28 Arm band placed on right wrist. ll3 01:30 Josefa Becerril, RAMIRO is Primary Nurse. ha1 02:06 XRAY Chest (1 view) In Process Unspecified. EDMS 02:16 Basic Metabolic Panel Sent. kd3 02:16 CBC with Diff Sent. kd3 02:16 D-Dimer Sent. kd3 02:16 Troponin HS Sent. kd3 02:42 Client placed on continuous cardiac and pulse oximetry monitoring. NIBP monitoring kd3 applied. 02:42 No provider procedures requiring assistance completed. Patient maintains SpO2 kd3 saturation greater than 95% on room air. 02:43 Patient has correct armband on for positive identification. Placed in gown. Bed in low kd3 position. Call light in reach. 03:33 IV discontinued, intact, bleeding controlled, No redness/swelling at site. Pressure jb4 dressing applied. Administered Medications: 02:16 Drug: Ketorolac 15 mg Route: IVP; Site: left antecubital; kd3 Medication: 02:42 VIS not applicable for this client. kd3 Outcome: 03:25 Discharge ordered by . rn 03:33 Discharged to home ambulatory, with family. jb4 03:33 Condition: stable 03:33 Discharge instructions given to patient, Instructed on discharge instructions, follow up and referral plans. Demonstrated understanding of instructions, follow-up care. 03:34 Patient left the ED. jb4 Signatures: Dispatcher [employer] EDKrunal Hyde MD MD rn Bryson, James RN RN jb4 Rebecca Hernandez Lynsea RN RN ll3 Zhanna Phillip RN RN kd3 Josefa Becerril, RN RN ha1
--- NOTE | 2022-01-31 03:26 | EDPHYS ---
Physician Documentation [facility] Name: Milvia Murdock Age: 21 yrs Sex: Female : 2000 Arrival Date: 01/31/2022 Time: 01:21 Bed 7 Private MD: ED Physician Krunal Mendez HPI: 01/31 01:37 This 21 yrs old Unknown Female presents to ER via Ambulatory with complaints of Chest rn Pain. 01:37 The patient or guardian reports chest pain that is located primarily in the substernal rn area. The pain does not radiate. Associated signs and symptoms: Pertinent negatives: abdominal pain, cough, diaphoresis, lower extremity swelling, lightheadedness, near syncope, palpitations, shortness of breath, syncope, vomiting. The chest pain is described as sharp, stabbing. Duration: The patient or guardian reports multiple episodes, that are intermittent. Modifying factors: The symptoms are alleviated by nothing. the symptoms are aggravated by deep breath. Severity of pain: At its worst the pain was mild in the emergency department the pain is unchanged. The patient has not experienced similar symptoms in the past. The patient has not recently seen a physician. 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 - Social history:: Smoking status: Patient denies any tobacco usage or history of. - Family history:: not pertinent. - Hospitalizations: : No recent hospitalization is reported. ROS: 01:37 Constitutional: Negative for fever, chills, and weight loss, Eyes: Negative for injury, rn pain, redness, and discharge, Neck: Negative for injury, pain, and swelling, Cardiovascular: Negative for palpitations, and edema, Respiratory: Negative for shortness of breath, cough, wheezing Abdomen/GI: Negative for abdominal pain, nausea, vomiting, diarrhea, and constipation, Back: Negative for injury and pain, MS/Extremity: Negative for injury and deformity, Skin: Negative for injury, rash, and discoloration, Neuro: Negative for headache, weakness, numbness, tingling, and seizure. Exam: 01:37 Constitutional: This is a well developed, well nourished patient who is awake, alert, rn and in no acute distress. Head/Face: Normocephalic, atraumatic. Cardiovascular: Regular rate and rhythm. No pulse deficits. Respiratory: No increased work of breathing, no retractions or nasal flaring. Abdomen/GI: Soft, non-tender Skin: Warm, dry MS/ Extremity: Pulses equal, no cyanosis. Neuro: Awake and alert, GCS 15 01:44 ECG was reviewed by the Attending Physician. rn Vital Signs: 01:26 BP 131 / 67; Pulse 84; Resp 16; Temp 98.2(O); Pulse Ox 100% on R/A; Weight 104.33 kg ll3 (R); Height 5 ft. 7 in. (170.18 cm) (R); Pain 4/10; 02:41 BP 110 / 65; Pulse 61; Resp 19; Pulse Ox 98% on R/A; kd3 03:33 BP 113 / 71; Pulse 67; Resp 21; Pulse Ox 100% on R/A; jb4 01:26 Body Mass Index 36.02 (104.33 kg, 170.18 cm) ll3 MDM: 01:22 Patient medically screened. rn 03:24 Differential diagnosis: acute myocardial infarction, acute pericarditis, anxiety, chest rn wall pain, costochondritis, esophagitis, gastritis, gastroesophageal reflux disease (GERD), pericarditis, pleurisy, pneumonia, pneumothorax, pulmonary embolus. HEART Score: History: Slightly Suspicious (0), ECG: Normal (0), Age: < or = 45 years (0), Risk Factors: No Risk Factors Known (0), Troponin: < or = 1 x Normal Limit (0), Total Score = 0. Data reviewed: vital signs, nurses notes, lab test result(s), EKG, radiologic studies, plain films, and as a result, I will discharge patient. Counseling: I had a detailed discussion with the patient and/or guardian regarding: the historical points, exam findings, and any diagnostic results supporting the discharge/admit diagnosis, lab results, radiology results, the need for outpatient follow up, to return to the emergency department if symptoms worsen or persist or if there are any questions or concerns that arise at home. Response to treatment: the patient's symptoms have mildly improved after treatment, and as a result, I will discharge patient. Special discussion: Based on the patient's history, exam, and Dx evaluation, there is no indication for emergent intervention or inpatient Tx. It is understood by the patient/guardian that if the Sx's persist or worsen they need to return immediately for re-evaluation. I discussed with the patient/guardian in detail that at this point there is no indication for admission to the hospital. It is understood, however, that if the symptoms persist or worsen the patient needs to return immediately for re-evaluation. Based on the history and exam findings, there is no indication for further emergent testing or inpatient evaluation. I discussed with the patient/guardian the need to see the primary care provider for further evaluation of the symptoms. 01/31 01:32 Order name: Basic Metabolic Panel; Complete Time: 03:24 01/31 01:32 Order name: CBC with Diff; Complete Time: 03:03 01/31 01:32 Order name: D-Dimer; Complete Time: 03:03 01/31 01:32 Order name: Troponin HS; Complete Time: 03:24 01/31 02:22 Order name: Urine Dipstick-Ancillary; Complete Time: 03:03 EDMS 01/31 02:23 Order name: Urine --Ancillary (enter results); Complete Time: 03:03 mw2 01/31 01:32 Order name: XRAY Chest (1 view) 01/31 01:32 Order name: EKG; Complete Time: 01:32 01/31 01:32 Order name: Cardiac monitoring; Complete Time: 01:50 01/31 01:32 Order name: EKG - Nurse/Tech; Complete Time: 01:50 01/31 01:32 Order name: IV Saline Lock; Complete Time: 02:16 01/31 01:32 Order name: Labs collected and sent; Complete Time: 02:16 01/31 01:32 Order name: O2 Per Protocol; Complete Time: 02:16 01/31 01:32 Order name: O2 Sat Monitoring; Complete Time: 02:16 01/31 01:32 Order name: Urine Dipstick-Ancillary (obtain specimen); Complete Time: 02:21 01/31 01:32 Order name: Urine Test (obtain specimen); Complete Time: 02:21 rn EC:44 Rate is 76 beats/min. Rhythm is regular. QRS [place] is Normal. [place] interval is normal. QRS rn interval is normal. QT interval is normal. No Q waves. T waves are Normal. No ST changes noted. Clinical impression: Normal ECG. Interpreted by me. Reviewed by me. Administered Medications: 02:16 Drug: Ketorolac 15 mg Route: IVP; Site: left antecubital; kd3 Disposition Summary: 01/31/22 03:25 Discharge Ordered Location: Home rn Problem: new rn Symptoms: have improved rn Condition: Stable rn Diagnosis - Chest pain, unspecified rn Followup: rn - With: Private Physician - When: As needed - Reason: Recheck today's complaints, Re-evaluation by your physician Discharge Instructions: - Discharge Summary Sheet rn - Nonspecific Chest Pain, Adult rn - Pain Without a Known Cause rn Forms: - Medication Reconciliation Form rn - Thank You Letter rn - Antibiotic triage rn - Prescription Opioid Use rn Signatures: Dispatcher [employer] Krunal Partida MD MD rn Loubet, Lynsea, RN RN ll3 Zhanna Phillip, RN RN kd3
[2022-01-31 03:38] VITALS: TEMP 98.2
[2022-01-31 03:41] VITALS: BP 113/71; O2SAT 100
--- NOTE | 2022-02-01 12:23 | RAD REPORT ---
EXAM DESCRIPTION: RAD - Chest Single View - 01/31/2022 2:05 am CLINICAL HISTORY: The patient is 21 years old and is Female; CHEST PAIN TECHNIQUE: Frontal view of the chest. COMPARISON: No relevant prior studies available. FINDINGS: LUNGS: Unremarkable. No consolidation. PLEURAL SPACE: Unremarkable. No pleural effusion. No pneumothorax. HEART: Prominence of the cardiomediastinal silhouette, likely exaggerated secondary to portable leanne hnique, lordotic positioning, and patient body habitus. MEDIASTINUM: See above. BONES/JOINTS: Unremarkable. IMPRESSION: No acute findings in the chest. Electronically signed by: Wai Diehl MD 01/31/2022 2:31 AM ENGINE EMISSION TECHNICIAN Due to temporary technical issues with the PACS/Fluency reporting system, reports are being signed by the in house radiologists without review as a courtesy to insure prompt reporting. The interpreting radiologist is fully responsible for the content of the report.
--- NOTE | 2022-02-02 12:54 | EKG ---
Test Date: 2022-01-31 Test Time: 01:40:28 Airport Location Manager: JOSSE MEASUREMENT RESULTS: Intervals: Rate: 76 WY: 144 QRSD: 100 QT: 396 QTc: 445 [place]: P: 36 W[place]: 144 QRS: 47 T: 34 INTERPRETIVE STATEMENTS: Normal sinus rhythm Normal ECG Compared to ECG 02/04/2020 00:34:45 Sinus bradycardia no longer present Electronically Signed On 02-02-22 12:50:29 SOLDERING MACHINE TENDER by Da Casey
== END 2022-01-31 03:34 | disposition home or self-care (01) ==
LOC: ER 01:18
DX: R07.89 Other chest pain (principal); Z88.8 Allergy status to other drugs, medicaments and biological substances
CPT/HCPCS: 36415; 71045; 80048; 81003; 81025; 84484; 85025; 85379; 93005; 96374; 99284

== ENCOUNTER 2022-04-01 21:40 | Emergency (ER) | payer BC, OTHER ==
--- OUTSIDE RECORDS SUMMARY | 2022-04-01 21:44 | XMS REPORT | Continuity of Care Document ---
:2000 Author Organization [facility] t Address [address] [place] [address] Care Team Providers Name Role Phone NOMAN CHAMPION Primary Care Physician Unavailable Khalif Burnham Attending Clinician Unavailable NOMAN CHAMPION Attending Clinician Unavailable TRENTON BULLOCK Attending Clinician Unavailable Noman Champion MD Attending Clinician Maria Luisa, Angel Matthews Attending Clinician Unavailable Phuong Larkin MA Attending Clinician Unavailable 2, Adc Lab Attending Clinician Unavailable Petrona Perez MD Attending Clinician PETRONA PEREZ Attending Clinician Unavailable Doctor Unassigned, Chacra Attending Clinician Unavailable Nataliya Caicedo RN Attending Clinician Unavailable REBECCA BARNETT Attending Clinician Unavailable Anibal BATTER DEPOSITOR, Rebecca Attending Clinician Sebastien MART, Lucretia Attending Clinician KHALIF BURNHAM Attending Clinician Unavailable Deshpande BATTER DEPOSITOR, Stefani Attending Clinician Kai Whitley DO Attending Clinician Lab, Adc Fam Pob I Attending Clinician Unavailable Altagracia DALTON, Apple Attending Clinician APPLE FRIAS Attending Clinician Unavailable CAMILLA YUN Attending Clinician Unavailable Katey MART, Gary Attending Clinician GARY DEL TORO Attending Clinician Unavailable Cholo PARKER, Margo Rea Attending Clinician MARGO AVENDANO Attending Clinician Unavailable Sarita MART, Monica Attending Clinician TRENTON BULLOCK Admitting Clinician Unavailable Payers Payer Name Policy Type Policy Number Effective Date Expiration Date S ourfran [place] - [id number] 2016 OUT OF STATE 00:00:00 [place] [id number] 2021 2022 00:00:00 00:00:00 [place] CHILDR[place] ST[place] [id number] 2022 00:00:00 Problems Condition Condition Condition Status Onset [...] FLUOXETI DRUG Active Hives Univers NE INGREDI 5- ity of 00:00: [place] 00 Medical Branch fluoxeti DA Active U Rash 2019-03 SJMCm ne 04-05 00:00: 00 Fluoxeti Propensi Active Rash Univer s ne Hcl ty to 09-27 ity of adverse 00:00: [place] reaction 00 Medical s Branch FLUOXETI DRUG Active Hives Univers NE HCL INGREDI 09-27 ity of 00:00: [place] 00 Medical Branch Social History Social Habit Start Date Stop Date Quantity Comments Source History SDOH University o f Alcohol Frequency [facility] edical Branch History SDOH University o f Alcohol Std [place] [facility] Drinks Branch History SDOH University o f Alcohol Binge [place] [facility] al [place] History of Passive smoker University of tobacco use [facility] Exposure to 2021-12-07 2021-12-17 Not sure University of SARS-CoV-2 00:00:00 13:03:00 [facility] (event) [place] Alcohol intake 2021-10-10 2021-10-10 Current drinker Unive rsity of 00:00:00 00:00:00 of alcohol [facility] (finding) [place] Tobacco use and 2021-10-10 2021-10-10 Smokeless tobacco Un iversity of exposure 00:00:00 00:00:00 non-user [facility] Alcohol Comment 2021-07-21 2021-07-21 ocassional Universit y of 00:00:00 00:00:00 [facility] Sex Assigned At [birth year] Universit y of 00:00:00 00:00:00 [facility] Smoking Status Start Date Stop Date Source Never smoked tobacco [facility] Medications Ordered Filled Start Stop Current Ordering Indication Dosage Frequency Signature Comments Components Source Medication Medication Date Date Medication? Clinician (SIG) Name Name SERTRALINE 2021-03 Yes [id number] 75mg TAKE 1.5 Univers 50 mg 0-04 TABLETS BY ity of tablet 00:00: MOUTH IN [place] 00 THE Medical MORNING. Branch SERTRALINE 2021-03 Yes [id number] 75mg TAKE 1.5 Univers 50 mg 0-04 TABLETS BY ity of tablet 00:00: MOUTH IN [place] 00 THE Medical MORNING. [place] SERTRALINE 2021-03 Yes [id number] 75mg TAKE 1.5 Univers 50 mg 0-04 TABLETS BY ity of tablet 00:00: MOUTH IN [place] 00 THE Medical MORNING. Branch SERTraline 0 Yes [id number] 75mg Take 1.5 Univers 50 mg 9-07 tablets by ity of tablet 00:00: mouth in [place] 00 the Medical morning. Branch pantoprazol 0 Yes [id number] 40mg Take 1 Univers e 40 mg EC 9-07 tablet by ity of tablet 00:00: mouth in [place] 00 the Medical morning. Branch SERTraline 0 Yes [id number] 75mg Take 1.5 Univers 50 mg 9-07 tablets by ity of tablet 00:00: mouth in [place] 00 the Medical morning. [place] pantoprazol 0 Yes [id number] 40mg Take 1 Univers e 40 mg EC 9-07 tablet by ity of tablet 00:00: mouth in [place] 00 the Medical morning. [place] pantoprazol 0 Yes [id number] 40mg Take 1 Univers e 40 mg EC 9-07 tablet by ity of tablet 00:00: mouth in [place] 00 the Medical morning. [place] pantoprazol 0 Yes [id number] 40mg Take 1 Univers e 40 mg EC 9-07 tablet by ity of tablet 00:00: mouth in [place] 00 the Medical morning. [place] pantoprazol 0 Yes [id number] 40mg Take 1 Univers e 40 mg EC 9-07 tablet by ity of tablet 00:00: mouth in [place] 00 the Medical morning. [place] SERTraline 0 2021- No [id number] 75mg Take 1.5 Univers 50 mg 9-07 10-04 tablets by ity of tablet 00:00: 00:00 mouth in [place] 00 :00 the Medical morning. [place] SERTRALINE 0 Yes [id number] TAKE 1 U nivers 50 mg 8-29 TABLET BY ity of tablet 00:00: MOUTH [place] [address] EVERY DAY Medical IN THE [facility] SERTRALINE 2021-0 Yes [id number] TAKE 1 U nivers 50 mg 8-29 TABLET BY ity of tablet 00:00: MOUTH [place] [address] EVERY DAY Medical IN THE [facility] SERTRALINE 2021- No [id number] TAKE 1 Univers 50 mg 11-03 TABLET BY ity of tablet 00:00: 00:00 [facility] 00 :00 EVERY DAY Medical IN THE Branch MORNING Immunizations Ordered Filled Immunization Date Status Comments [facility] e Immunization Name Name Influenza Virus 2021-12-17 Completed Universit y of Vaccine Quad IM, 00:00:00 [place] Me dical Preserv and ABX Branch Free 6 MO-64 YRS Influenza Virus 2021-12-17 Completed Universit y of Vaccine Quad IM, 00:00:00 [place] Me dical Preserv and ABX Branch Free 6 MO-64 YRS SARS-COV-2 COVID-19 2020-07-31 Completed Unive rsity of MODERNA 12+ YRS 00:00:00 [facility] ical VACCINE Branch SARS-COV-2 COVID-19 2020-07-31 Completed Unive rsity of MODERNA 12+ YRS 00:00:00 [facility] ical VACCINE Branch SARS-COV-2 COVID-19 2020-07-31 Completed Unive rsity of MODERNA 12+ YRS 00:00:00 [facility] ical VACCINE Branch SARS-COV-2 COVID-19 2020-07-31 Completed Unive rsity of [place]ERNA 12+ YRS 00:00:00 [facility] ical VACCINE Branch SARS-COV-2 COVID-19 2020-07-31 Completed Unive rsity of MODERNA 12+ YRS 00:00:00 [facility] ical VACCINE Branch SARS-COV-2 COVID-19 2020-07-04 Completed Unive rsity of MODERNA 12+ YRS 00:00:00 [facility] ical VACCINE Branch SARS-COV-2 COVID-19 2020-07-04 Completed Unive rsity of MODERNA 12+ YRS 00:00:00 [facility] ical VACCINE Branch SARS-COV-2 COVID-19 2020-07-04 Completed Unive rsity of MODERNA 12+ YRS 00:00:00 [facility] ical VACCINE Branch SARS-COV-2 COVID-19 2020-07-04 Completed Unive rsity of MODERNA 12+ YRS 00:00:00 [facility] ical VACCINE Branch SARS-COV-2 COVID-19 2020-07-04 Completed Unive rsity of MODERNA 12+ YRS 00:00:00 [facility] ical VACCINE Branch TDAP 2019-01-08 Completed University of 00:00:00 [facility] Influenza Virus 2019-01-08 Completed Universit y of Vaccine Quad .5 mL 00:00:00 [place] Medical IM 6+ MO Branch TDAP 2019-01-08 Completed University of 00:00:00 [place] [facility] [place] Influenza Virus 2019-01-08 Completed Universit y of Vaccine Quad .5 mL 00:00:00 [place] Medical IM 6+ MO Branch TDAP 2019-01-08 Completed University of 00:00:00 [facility] Influenza Virus 2019-01-08 Completed Universit y of Vaccine Quad .5 mL 00:00:00 [place] Medical IM 6+ MO Branch TDAP 2019-01-08 Completed University of 00:00:00 [facility] Influenza Virus 2019-01-08 Completed Universit y of Vaccine Quad .5 mL 00:00:00 [place] [facility] IM 6+ MO Branch TDAP 2019-01-08 Completed University of 00:00:00 [facility] Influenza Virus 2019-01-08 Completed Universit y of Vaccine Quad .5 mL 00:00:00 [facility] 6+ MO Branch HPV9 2015-10-03 Completed University of 00:00:00 [place] [facility] HPV9 2015-10-03 Completed University of 00:00:00 [place] [facility] HPV9 2015-10-03 Completed University of 00:00:00 [place] [facility] HPV9 2015-10-03 Completed University of 00:00:00 [place] [facility] HPV9 2015-10-03 Completed University of 00:00:00 [place] [facility] HPV9 2014-10-16 Completed University of 00:00:00 [place] [facility] HPV9 2014-10-16 Completed University of 00:00:00 [place] [facility] HPV9 2014-10-16 Completed University of 00:00:00 [place] [facility] HPV9 2014-10-16 Completed University of 00:00:00 [place] [facility] HPV9 2014-10-16 Completed University of 00:00:00 [facility] Vital Signs Vital Name Observation Time Observation Value Comments Source Systolic blood 2021-12-17 18:11:00 99 mm[Hg] Univer sity of [place] pressure Medical Branch Diastolic blood 2021-12-17 18:11:00 62 mm[Hg] Unive rsity of [place] pressure Medical Branch Heart rate 2021-12-17 18:11:00 70 /min Universi ty of [facility] Body height 2021-12-17 18:11:00 167.6 cm Universi ty [facility] Body weight 2021-12-17 18:11:00 107.049 kg Universi ty [facility] BMI 2021-12-17 18:11:00 38.09 kg/m2 Universi ty [facility] Systolic blood 2021-11-12 21:27:00 110 mm[Hg] Univer sity of [facility] Diastolic blood 2021-11-12 21:27:00 63 [facility]Hg[facility] 2021-11-12 21:27:00 89 /min Universi ty [facility] Body height 2021-11-12 21:27:00 167.6 cm Universi [facility] Body weight 2021-11-12 21:27:00 108.41 kg Universi ty [facility] BMI 2021-11-12 21:27:00 38.58 kg/m2 [facility] Procedures Procedure Date / Time Performed Performing Clinician Sourc e FLU VACC ([id number]), 2021-12-17 18:19:14 [facility] 6 [facility]-64 [facility], .5ML, Medical Branc h IM, QUAD (FLUCELVAX) Encounters Start End Encounter Admission Attending Care Care Encounter Source Date/Time Date/Time Type Type Clinicians Facility Department ID 2021-02-25 Inpatient JUAN MANUEL Burnham, HCACL DAYS [id number] [facility] 11:00:00 Khalif 80 [facility] 2020-02-04 Inpatient [facility] [id number] [facility] 05:53:00 72 2022-03-19 2022-03-19 Outpatient Idalia CHAMPION [facility] [id number] Univers 14:00:00 14:00:00 NOMAN santana [facility] 2022-03-16 2022-03-16 Outpatient Idalia CHAMPION [facility] [id number] Univers 15:30:00 15:30:00 NOMAN santana [facility] 2022-02-24 2022-02-25 Inpatient TAL BULLOCK SETH [id number] [facility] 11:38:00 15:25:00 [place] 2021-12-17 2021-12-17 [facility] [id number] Univers 13:00:00 13:26:08 [facility] 2021-12-17 2021-12-17 Office [facility] [id number] Univers 13:00:00 13:26:08 Visit [facility] [id number] it y of [place] 4.2.7.2.686 José Manuel as GALEN?BLEA [phone] [address] OFFICE [facility] 2021-12-09 2021-12-09 [facility] 1.2.840.114 [id number] Univers 00:00:00 00:00:00 [facility] [id number] it y of [place] [id number] José Manuel as GALEN?BLEA [phone] [address] OFFICE [facility] 2021-11-12 2021-11-12 Office [facility] [id number] Univers 16:15:00 16:30:00 Visit [facility] [id number] it y of [place] [id number] José Manuel as GALEN?BLEA [phone] [address] OFFICE [facility] 2021-11-12 2021-11-12 [facility] [id number] Univers 16:15:00 16:15:00 [facility] 2021-11-12 2021-11-12 Outpatient [facility] [id number] Univers 16:15:00 16:15:00 [facility] 2021-11-11 2021-11-11 Outpatient [facility] [id number] Univers 09:15:00 09:15:00 [facility] 2021-11-01 2021-11-01 [facility] [id number] Univers 00:00:00 00:00:00 [facility] [id number] it y of [place] 4.2.7.2.686 José Manuel as GALEN?BLEA [phone] [facility] 044 [facility] 2021-10-10 2021-10-10 [facility], Angel - Db [facility] 1.2.840.1 [id number] Univers 10:00:00 10:15:00 Visit Jo Annjuan aNoman germaine [facility] 350.1.13 .10 ity of [place] 4.2.7.2.686 José Manuel as GALEN?BLEA [phone] [facility] 353 [facility] 2021-10-10 2021-10-10 Office Akira [facility] 1.2.840.114 [id number] Univers 09:30:00 10:00:00 Visit [facility] [id number] it y of Vikas [place] 4.2.7.2.686 José Manuel as GALEN?BLEA [phone] [address] 2021-10-10 2021-10-10 Outpatient Idalia CHAMPION [facility] [id number] Univers 09:30:00 09:55:10 NOMAN [facility] 2021-10-10 2021-10-10 Outpatient Idalia CHAMPION [facility] [id number] Univers 09:30:00 09:30:00 NOMAN [facility] 2021-10-03 2021-10-03 Pre Visit ENRIQUE Larkin [id number] Univers 00:00:00 00:00:00 Outreach Phuong [place]ORR[place] [id number] [place]y [place] [phone] [address] 2021-07-21 2021-07-21 Wafer Cutter 2, Adc Lab [facility] 1.2.840.114 [id number] Univers 16:15:00 16:30:00 Visit Everette Petrona [facility]arnest [facility] [id number] ity of [place].7.2.[place] PROF[place] [phone] [facility] 353 [facility] 2021-07-21 2021-07-21 Outpatient R PETRONA PEREZ [facility] [id number] Univers 16:15:00 16:15:00 ity of [facility] 2021-07-21 2021-07-21 Office Petrona Perez [facility] [id number] [id number] Univers 15:30:00 16:04:18 Visit Earnest ARIZMENDI 350.1.13.10 i ty of [place] PROF[place] [phone] Or dical [address] 2021-07-21 2021-07-21 Outpatient R PETRONA PEREZ [facility] [id number] Univers 15:30:00 16:04:18 ity [facility] 2021-07-21 2021-07-21 Orders Doctor ONEILL 1.2.840.114 [id number] Univers 00:00:00 00:00:00 Only Unassigned, NICK [id number] ity of [place] [facility] 4.2.7.2.686 José Manuel as [phone] [address] 2021-07-04 2021-07-04 Outpatient R AKIRA [facility] [id number] Univers 13:30:00 13:30:00 NOMAN santana [facility] 2021-04-17 2021-04-17 Letter NINO Caicedo 1.2.840.114 [id number] Univers 00:00:00 00:00:00 (Out) Nataliya ROMERO [id number] it y of [facility] 4.2.7.2.686 José Manuel as [phone] [address] 2021-04-16 2021-04-16 Outpatient R ANIBAL [facility] [id number] Univers 19:20:00 19:38:01 REBECCA santana o f [facility] 2021-04-16 2021-04-16 Urgent Rebecca Barnett [facility] 1.2.840. 114 [id number] Univers 19:20:00 19:38:01 Jose Crowe [facility] [id number] ity of [place] 4.2.7.2.686 José Manuel as GALEN?BLEA [phone] Or dical [facility] [address] [place] [facility] 2021-02-14 2021-02-14 Outpatient WENDI, MHSE MHSE [id number] MH 12:55:00 21:50:00 KHALIFOdell [facility] 2020-06-17 2020-06-17 Telephone de [facility] 1.2.840.114 [id number] 00:00:00 00:00:00 Jarod Raymundo 350.1.13.10 [place] Pediatric 4.2.7.2.686 Clinic [id number] 2020-06-17 2020-06-17 Telephone de [facility] 1.2.840.114 [id number] [facility] 00:00:00 00:00:00 Jarod Raymundo 350.1.13.10 ity of [place] [facility] [place] [facility] [phone] [address] 2020-05-28 2020-05-28 Patient BRIAN Whitley 1.2.840.114 [id number] 00:00:00 00:00:00 Outreach Kai PRIMARY 350.1.13.10 [place] C[facility] 4.2.7.2.686 PAVILLION [id number] 2020-05-28 2020-05-28 Patient BRIAN Whitley 1.2.840.114 [id number] Univers 00:00:00 00:00:00 Outreach Kai PRIMARY 350.1.13.10 i ty of [place]AV[place]ION [phone] Or dicbaldev [address] [place] [address] 2020-02-04 2020-02-04 Emergency [facility] [id number] [facility] 05:53:00 05:53:00 72 2019-12-02 2019-12-02 Laboratory Lab, [facility] 1.2.840.114 [id number] 14:31:28 14:51:28 Only Fam Pob I Health 350.1.13.10 [place] 4.2.7.2.686 Professio [phone] nal 0[address] Office [address] One 2019-12-02 2019-12-02 Laboratory Lab, Adc Fam Pob I [facility] 1.2. 840.114 [id number] Univers 14:31:28 14:51:28 Only Apple Frias [facility] [id number] ity of [place] 4.2.7.2.686 José Manuel as Professio [phone] [address] Office [facility] 2019-12-02 2019-12-02 Outpatient R ALTAGRACIA [facility] [id number] Univers 14:20:00 14:20:00 [facility] 2019-12-02 2019-12-02 Letter Doctor NINO 1.2.840.114 [id number] 00:00:00 00:00:00 (Out) Unassigned, NICK 350.1.13.10 [place] [facility] 4.2.7.2.686 [id number] [facility] 2019-12-02 2019-12-02 Letter Doctor NINO 1.2.840.114 [id number] Univers 00:00:00 00:00:00 (Out) Unassigned, NICK 350.1.13.10 ity of [place] [facility] 4.2.7.2.686 José Manuel as [phone] [address] 2019-11-21 2019-11-21 [facility] [id number] Univers 08:20:00 08:20:00 CAMILLA [facility] 2019-11-16 2019-11-16 Outpatient [facility] [id number] Univers 14:00:00 14:00:00 [facility] 2019-11-03 2019-11-03 Office Gary Del Toro [facility] 1.2.840.114 [id number] 08:56:18 09:24:12 Visit Jarod 350.1.13.10 Pediatric 4.2.7.2.686 Clinic [id number] [facility] 2019-11-03 2019-11-03 Office Gary Del Toro [facility] 1.2.840.114 [id number] Univers 08:56:18 09:24:12 Visit Jarod 350.1.13.10 it y of [place].2.[place] [facility] [id number] [address] 2019-11-03 2019-11-03 Outpatient R GARY DEL TORO [facility] [id number] Univers 09:00:00 09:00:00 ity of [facility] 2019-11-03 2019-11-03 Orders Doctor ONEILL 1.2.840.114 [id number] Univers 00:00:00 00:00:00 Only Unassigned, NICK 350.1.13.10 ity of [place] [facility] 4.2.7.2.686 José Manuel as [phone] [address] 2019-09-29 2019-09-29 Outpatient [facility] [id number] Univers 10:00:00 10:00:00 CAMILLA itkiley [facility] 2019-08-03 2019-08-03 Outpatient R [facility] [id number] Univers 15:40:00 15:40:00 ity [facility] 2019-05-29 2019-05-29 Telephone [facility] 1.2.840.11 [id number] Univers 00:00:00 00:00:00 , Marog Olivera 350.1.13.10 it y of [place].2.[place] [facility] [phone] [address] 2019-04-25 2019-04-25 Outpatient R [facility] [id number] Univers 08:10:00 08:53:36 , MARGO esther [facility] 2019-04-25 2019-04-25 Office [facility] 1.2.840.114 [id number] Univers 08:05:29 08:53:36 Visit , Margo Olivera 350.1.13.10 it y of [place]2.7.2.686 [place] [facility] [id number] [address] 2019-03-28 2019-03-28 Telephone Gary Del Toro [facility] 1.2.840.114 [id number] Univers 00:00:00 00:00:00 Jarod 350.1.13.10 it y of [place]2.7.2.686 [place] [facility] [id number] [address] 2018-11-24 2018-11-24 Orders Doctor ONEILL 1.2.840.114 [id number] Univers 00:00:00 00:00:00 Only UnassignedNICK 350.1.13.10 ity of [place] [facility] 4.2.7.2.686 José Manuel as [phone] [facility] 009 Branch 2018-11-15 2018-11-15 Telephone [facility] 1.2.840.11 [id number] [facility] 00:00:00 00:00:00 Monica Ervin 350.1.13.10 ity of Pediatric 4.2.7.2.[address] [facility] [phone] [facility] 225 Branch Results Test Description Test Time Test Comments Results Result Comments Source Complete Blood Count Auto Diff 2020-02-04 06:35:00 Test Item Value Reference Range Interpretation Comme nts White Blood Count (test code = WBCT) 9.0 x10 3/uL 4.4-10.5 N Red Blood Count (test code = RBC) 4.98 x10 6/uL 3.75-5.20 N Hemoglobin (test code = HGBT) 12.8 g/dL 12.2-14.8 N Hematocrit (test code = HCTT) 40.9 % 36.5-44.4 N Mean Corpuscular Volume (test code = MCV) 82.10 fL 80.00-100.00 N Mean Corpuscular Hemoglobin (test code = MCH) 25.7 pg 27.0-32. 5 L Mean Corpuscular HGB Conc (test code = MCHC) 31.30 g/dL 32.00-37. 50 L RDW Coefficient of Variation (test code = RDWCV) 15.4 % 11.5- 14.5 H Platelet Count (test code = PLTT) 182.0 x10 3/uL 140.0-440.0 N Mean Platelet Volume (test code = MPV) 12.8 fL Immature Granulocytes % (Auto) (test code = IMMGRAN%) 0.3 % 0.0-5.0 N Neutrophils % (Auto) (test code = NE%) 67.9 % 36.0-70.0 N Lymphocytes % (Auto) (test code = LY%) 24.7 % 12.0-44.0 N Monocytes % (Auto) (test code = MO%) 5.7 % 0.0-11.0 N Eosinophils % (Auto) (test code = EO%) 1.2 % 0.0-7.0 N Basophils % (Auto) (test code = BA%) 0.2 % 0.0-2.0 N Immature Granulocytes # (Auto) (test code = IMMGRAN#) 0.03 x10 3/uL Neutrophils # (Auto) (test code = NE#) 6.1 x10 3/uL 1.6-7.4 N Lymphocytes # (Auto) (test code = LY#) 2.22 x10 3/uL 0.50-4.60 N Monocytes # (Auto) (test code = MO#) 0.51 x10 3/uL 0.00-1.20 N Eosinophils # (Auto) (test code = EO#) 0.11 x10 3/uL 0.00-0.74 N Basophils # (Auto) (test code = BA#) 0.02 x10 3/uL 0.00-0.21 N nRBC Abs (test code = NRBCA) 0 nRBC Pct (test code = NRBCP) 0 % Comprehensive Metabolic [id number] 06:35:00 Test Item Value Reference Range Interpretation [...] 57 U/L 46-116 N = ALP) Ethanol [id number] 06:35:00 Test Item Value Reference Range Interpretation Comments Ethanol (test code = ETOH) < 3 mg/dL UA, Urinalysis Rflx [id number] 06:35:00 Test Item Value Reference Range Interpretation Comments Color,Urine (test code Yellow Yellow = UCOL) Clarity,Urine (test Clear Clear code = UCLAR) PH,Urine (test code = 7.0 5.5-8.5 UPH.XX) Specific [place],Urine 1.020 1.005-1.030 N (test code = USG) Blood,Urine (test code Trace-intact cells/uL Negative A = UBLD) Protein,Urine (test Negative mg/dL Negative code = UPRO) Glucose,Urine (UA) Negative mg/dL Negative (test code = UGLU) Ketones,Urine (test Negative mg/dL Negative code = UKET) Nitrate,Urine (test Negative Negative code = UNIT) Bilirubin,Urine (test Negative mg/dL Negative code = UBIL) Urobilinogen,Urine 0.2 mg/dL Negative (test code = UURO) Leukocyte Small cells/uL Negative A Esterase,Urine (test code = ULEU) Urine [id number] 06:35:00 Test Item Value Reference Range Interpretation Comments RBC,Urine (test code = URBC.XX) 0-2 /HPF None Seen WBC,Urine (test code = UWBC.XX) 0-5 /HPF None Seen Squamous Epithelial Cell,Urine 0-5 /HPF None Seen (test code = USQEPI.XX) Bacteria,Urine (test code = UBACT) Trace /HPF None Seen A HCG, Urine Qual (LAB)2020-02-04 06:34:00 Test Item Value Reference Range Interpretation Comments HCG, Urine, Qual (test code = HCGU) Positive Negative Drug Screen,[id number] 06:34:00 Test Item Value Reference Range Interpretation [...]
[2022-04-01] MEDS ORDERED: NA CHLORIDE 0.9% 1,000 ML ONE (21:59)
[2022-04-01] MEDS ORDERED: ONDANSETRON 4 MG/2 ML VIAL ONE (21:59)
[2022-04-01 22:16] LABS: Urine Blood Trace-intact (Negative); Urine Glucose Negative (Negative); Urine Protein Negative (Negative); Urine Specific Gravity >=1.030 (1.005-1.030); Urine pH 5.5 (5.0-7.0)
[2022-04-01 22:23] LABS: Urine Specific Gravity/Preg >1.030 (1.005-1.030)
[2022-04-01 22:26] LABS: Absolute Lymphocytes (CBC) 2.5 K/uL (0.7-4.9); Hematocrit 39.4 % (36.0-45.0); Lymphocytes % 29.1 % (15.3-44.8); MCV 75.6 fL (80-100); MPV 10.7 fL (7.6-11.3); RBC Red Blood Cell Count 5.21 M/uL (3.86-4.86)
[2022-04-01 22:38] LABS: Albumin 3.6 g/dL (3.4-5.0); Bilirubin Total 0.1 mg/dL (0.2-1.0); Potassium 3.9 mmol/L (3.5-5.1); Protein, Total 6.9 g/dL (6.4-8.2)
[2022-04-01 22:44] LABS: Urine Bacteria None Seen /HPF (<20); Urine Mucus Slight /HPF (None Seen); Urine RBC <5 /HPF (None Seen)
--- NOTE | 2022-04-01 23:31 | EDPHYS ---
Physician Documentation [facility] Name: Milvia Murdock Age: 21 yrs Sex: Female : 2000 Arrival Date: 04/01/2022 Time: 21:44 Bed 6 Private MD: ED Physician Abrahan Pruitt HPI: 04/01 23:30 This 21 yrs old Female presents to ER via Ambulatory with complaints of kb Dehydration. 23:30 The patient presents to the emergency department with nausea. Onset: The kb symptoms/episode began/occurred 1 week(s) ago. Possible causes: unknown. The symptoms are aggravated by nothing. The symptoms are alleviated by nothing. Associated signs and symptoms: Pertinent positives: anorexia, nausea. Severity of symptoms: At their worst the symptoms were moderate in the emergency department the symptoms are unchanged. The patient has not experienced similar symptoms in the past. The patient has not recently seen a physician. Pt reports decreased appetite and nausea for a week. States she came in tonight for dehydration. Reports decreased urination, dark urine and headache. . 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 - Social history:: Smoking status: Patient denies any tobacco usage or history of. ROS: 23:28 Respiratory: Negative for shortness of breath, cough, wheezing, and pleuritic chest kb pain. 23:28 Constitutional: Positive for fatigue. 23:28 Abdomen/GI: Positive for nausea, Negative for abdominal pain, vomiting, diarrhea. 23:28 : Positive for decreased urination, dark urine. 23:28 Neuro: Positive for headache. 23:28 All other systems are negative. Exam: 23:28 Constitutional: This is a well developed, well nourished patient who is awake, alert, kb and in no acute distress. Head/Face: Normocephalic, atraumatic. ENT: Moist Mucous membranes Cardiovascular: Regular rate and rhythm with a normal S1 and S2. No gallops, murmurs, or rubs. No pulse deficits. Respiratory: Respirations even and unlabored. No increased work of breathing. Talking in full sentences Abdomen/GI: Soft, non-tender. No distention Skin: Warm, dry with normal turgor. Normal color. MS/ Extremity: Pulses equal, no cyanosis. Neurovascular intact. Full, normal range of motion. Neuro: Awake and alert, GCS 15, oriented to person, place, time, and situation. Moves all extremities. Normal gait. Psych: Awake, alert, with orientation to person, place and time. Behavior, mood, and affect are within normal limits. Vital Signs: 21:49 Temp 98.2; kd3 21:49 Pulse 53; Resp 16; Pulse Ox 100% on R/A; Weight 96.16 kg; Height 5 ft. 7 in. (170.18 kd3 cm); 21:49 BP 106 / 60; kd3 22:12 BP 107 / 65; Pulse 65; Resp 16; Pulse Ox 98% ; Pain 0/10; mb9 23:15 BP 113 / 72; Pulse 62; Resp 16; Pulse Ox 100% ; mb9 21:49 Body Mass Index 33.20 (96.16 kg, 170.18 cm) kd3 MDM: 21:47 Patient medically screened. kb 23:28 Data reviewed: vital signs, nurses notes. kb 23:31 Counseling: I had a detailed discussion with the patient and/or guardian regarding: the kb historical points, exam findings, and any diagnostic results supporting the discharge/admit diagnosis, lab results, the need for outpatient follow up, a family practitioner, to return to the emergency department if symptoms worsen or persist or if there are any questions or concerns that arise at home. 04/01 21:52 Order name: CBC with Diff; Complete Time: 22:49 kb 04/01 21:52 Order name: CMP; Complete Time: 22:38 kb 04/01 21:52 Order name: Lipase; Complete Time: 22:38 kb 04/01 22:17 Order name: Urine Dipstick-Ancillary; Complete Time: 22:25 EDMS 04/01 22:18 Order name: Urine --Ancillary (enter results); Complete Time: 22:25 ds4 04/01 22:18 Order name: Urine Microscopic Only; Complete Time: 22:49 ds4 04/01 21:52 Order name: IV Saline Lock; Complete Time: 22:12 kb 04/01 21:52 Order name: Labs collected and sent; Complete Time: 22:12 kb 04/01 21:52 Order name: Urine Dipstick-Ancillary (obtain specimen); Complete Time: 22:12 kb 04/01 21:52 Order name: Urine Test (obtain specimen); Complete Time: 22:12 kb 04/01 23:29 Order name: PO challenge; Complete Time: 23:30 kb Administered Medications: 22:12 Drug: NS 0.9% 1000 ml Route: IV; Rate: 1 bolus; Site: left antecubital; mb9 23:30 Follow up: Response: No adverse reaction; IV Status: Completed infusion mb9 22:12 Drug: Zofran (Ondansetron) 4 mg Route: IVP; Site: left antecubital; mb9 23:17 Follow up: Response: Nausea is decreased mb9 Disposition: 04/02 03:26 I reviewed the patient's care provided by the Advanced Practice Provider and agree with bs3 the diagnosis and treatment plan. Disposition Summary: 04/01/22 23:31 Discharge Ordered Location: Home kb Condition: Stable kb Diagnosis - Dehydration kb Followup: kb - With: Emergency Department - When: As needed - Reason: Worsening of condition Followup: kb - With: Private Physician - When: 2 - 3 days - Reason: Recheck today's complaints, Continuance of care, Re-evaluation by your physician Discharge Instructions: - Discharge Summary Sheet kb - Dehydration, Adult, [id number] kb Forms: - Medication Reconciliation Form kb - Thank You Letter kb - Antibiotic Education kb - Prescription Opioid Use kb Prescriptions: - ondansetron 4 mg Oral - take 1 tablet by SUBLINGUAL route every 8 hours As needed; 15 tablet; Refills: kb 0, Product Selection Permitted Signatures: Dispatcher [employer] Chapis Rivas FNP-C FNP-Ckb Doucette, Kyli RN RN kd3 Abrahan Pruitt MD MD bs3 Melissa Dukes RN RN mb9
--- NOTE | 2022-04-01 23:31 | ER ---
Nurse's Notes [facility] Name: Milvia Murdock Age: 21 yrs Sex: Female : 2000 Arrival Date: 04/01/2022 Time: 21:44 Bed 6 Private MD: Diagnosis: Dehydration Presentation: 04/01 21:49 Chief complaint: Patient states: I have had headache, nausea and decreased urination kd3 with fatigue for about a week. Coronavirus screen: Vaccine status: Patient reports receiving the 2nd dose of the covid vaccine. Ebola Screen: No symptoms or risks identified at this time. Initial Sepsis Screen: Does the patient meet any 2 criteria? No. Patient's initial sepsis screen is negative. Does the patient have a suspected source of infection? No. Patient's initial sepsis screen is negative. Risk Assessment: Do you want to hurt yourself or someone else? Patient reports no desire to harm self or others. Onset of symptoms was April 01, 2022. 21:49 Method Of Arrival: Ambulatory kd3 21:49 Acuity: KULDEEP 4 kd3 Triage Assessment: 21:51 General: Appears in no apparent distress. Behavior is calm, cooperative. Pain: Denies kd3 pain. 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 - Social history:: Smoking status: Patient denies any tobacco usage or history of. Screenin:14 [facility] ED Fall Risk Assessment (Adult) History of falling in the last 3 months, mb9 including since admission No falls in past 3 months (0 pts) Confusion or Disorientation No (0 pts) Intoxicated or Sedated No (0 pts) Impaired Gait No (0 pts) Mobility Assist Device Used No (0 pt) Altered Elimination No (0 pt) Score/Fall Risk Level 0 - 2 = Low Risk Oriented to surroundings, Maintained a safe environment, Educated pt \T\ family on fall prevention, incl call for assistance when getting out of bed. Abuse screen: Denies threats or abuse. Nutritional screening: No deficits noted. Tuberculosis screening: No symptoms or risk factors identified. Assessment: 22:13 General: Appears in no apparent distress. comfortable, Behavior is calm, cooperative, mb9 appropriate for age. Pain: Complains of pain in head Pain does not radiate. Pain currently is 1 out of 10 on a pain scale. Quality of pain is described as aching, Pain began 2-3 days ago. Is intermittent. Neuro: Thomas Agitation-Sedation Scale (RASS): 0 - Alert and Calm Level of Consciousness is awake, alert, obeys commands, Oriented to person, place, time, situation, Appropriate for age. Cardiovascular: Heart tones S1 S2 present Capillary refill < 3 seconds is brisk Patient's skin is warm and dry. Rhythm is regular. Respiratory: Airway is patent Respiratory effort is even, unlabored, Respiratory pattern is regular, symmetrical, Breath sounds are clear bilaterally. GI: Abdomen is flat, non-distended, Bowel sounds present X 4 quads. Abd is soft and non tender X 4 quads. Reports intolerance of fluids, intolerance of food, nausea. : Urine is clear. EENT: No signs and/or symptoms were reported regarding the EENT system. Derm: Skin is pink, warm \T\ dry. Musculoskeletal: Range of motion: intact in all extremities. 23:15 Reassessment: No changes from previously documented assessment. Patient and/or family mb9 updated on plan of care and expected duration. Pain level reassessed. Patient is alert, oriented x 3, equal unlabored respirations, skin warm/dry/pink. Patient states feeling better. Patient states symptoms have improved. Vital Signs: 21:49 Temp 98.2; kd3 21:49 Pulse 53; Resp 16; Pulse Ox 100% on R/A; Weight 96.16 kg; Height 5 ft. 7 in. (170.18 kd3 cm); 21:49 BP 106 / 60; kd3 22:12 BP 107 / 65; Pulse 65; Resp 16; Pulse Ox 98% ; Pain 0/10; mb9 23:15 BP 113 / 72; Pulse 62; Resp 16; Pulse Ox 100% ; mb9 21:49 Body Mass Index 33.20 (96.16 kg, 170.18 cm) kd3 ED Course: 21:44 Patient arrived in ED. ja2 21:47 Chapis Olivera [facility]C [facility]. kb 21:47 Abrahan Pruitt MD is Attending Physician. kb 21:51 Triage completed. kd3 21:51 Arm band placed on right wrist. kd3 21:52 Melissa Dukes, RN is Primary Nurse. mb9 22:05 No provider procedures requiring assistance completed. Inserted saline lock: 20 gauge mb9 in left antecubital area, using aseptic technique. Blood collected. 22:12 CBC with Diff Sent. mb9 22:12 CMP Sent. mb9 22:12 Lipase Sent. mb9 22:15 Placed in gown. Bed in low position. Call light in reach. Side rails up X 1. Client mb9 placed on continuous cardiac and pulse oximetry monitoring. NIBP monitoring applied. 23:32 IV discontinued, intact, bleeding controlled, No redness/swelling at site. Pressure mb9 dressing applied. Administered Medications: 22:12 Drug: NS 0.9% 1000 ml Route: IV; Rate: 1 bolus; Site: left antecubital; mb9 23:30 Follow up: Response: No adverse reaction; IV Status: Completed infusion mb9 22:12 Drug: Zofran (Ondansetron) 4 mg Route: IVP; Site: left antecubital; mb9 23:17 Follow up: Response: Nausea is decreased mb9 Medication: 22:15 VIS not applicable for this client. mb9 Outcome: 23:31 Discharge ordered by . kb 23:32 Discharged to home ambulatory. mb9 23:32 Condition: stable 23:32 Discharge instructions given to patient, Instructed on discharge instructions, follow up and referral plans. Demonstrated understanding of instructions, follow-up care, medications, Prescriptions given X 1. 23:36 Patient left the ED. mb9 Signatures: Chapis Olivera FNP-C FNP-Peri Burns Kyli RN RN kd3 Melissa Dukes, RN RN mb9
[2022-04-02 00:23] VITALS: TEMP 98.2
[2022-04-02 00:25] VITALS: BP 113/72; O2SAT 100
== END 2022-04-01 23:36 | disposition home or self-care (01) ==
LOC: ER 21:40
DX: E86.0 Dehydration (principal); R11.0 Nausea; Z88.5 Allergy status to narcotic agent
CPT/HCPCS: 85025; 36415; 81025; 83690; 80053; J7030; J2405; 81003; 81015

== ENCOUNTER 2022-08-22 10:55 | Emergency (ER) | payer BC, OTHER ==
--- OUTSIDE RECORDS SUMMARY | 2022-08-22 10:58 | XMS REPORT | Continuity of Care Document ---
:2000 Author Organization [facility] t Address [address] [place] [address] Care Team Providers Name Role Phone Noman Champion MD Primary Care Physician [phone] Khalif Burnham Attending Clinician Unavailable Noman Champion MD Attending Clinician NOMAN CHAMPION Attending Clinician Unavailable TRENTON BULLOCK Attending Clinician Unavailable Lab, Ang - Db Attending Clinician Unavailable Phuong Larkin MA Attending Clinician Unavailable 2, Adc Lab Attending Clinician Unavailable Petrona Perez MD Attending Clinician PETRONA PEREZ Attending Clinician Unavailable Doctor Unassigned, [place] Attending Clinician Unavailable Marifer RUBIO, Nataliya Shepard Attending Clinician Unavailable REBECCA BARNETT Attending Clinician Unavailable Anibal EMPLOYMENT REPRESENTATIVE, Rebecca Attending Clinician Sebastien MART, Lucretia Attending Clinician KHALIF BURNHAM Attending Clinician Unavailable Deshpande EMPLOYMENT REPRESENTATIVE, Stefani Attending Clinician Kai Whitley DO Attending [...] Number Effective Date Expiration Date S ource [place]ICA[place] [id number] 2021 2022 00:00:00 00:00:00 Problems Condition Condition Condition Status Onset Resolution Last Treating Co mments Source Name Details Category Date Date Treatment Clinician Date Other Other Disease Active Univers acquired acquired 7-29 [place] Univers NE INGREDI 5-19 ity of 00:00: [place] 00 Medical Branch fluoxeti DA Active U Rash 2019-[facility] 1- 00:00: 00 Fluoxeti Propensi Active Rash Univer s ne Hcl ty to 7 ity of adverse 00:00: [place] reaction 00 Medical s Branch FLUOXETI DRUG Active Hives Univers NE HCL INGREDI 7- ity of 00:00: [place] 00 Medical Branch Social History Social Habit Start Date Stop Date Quantity Comments Source History SDOH University o f Alcohol Frequency [place] [facility] History SDOH University o f Alcohol Std [place] [facility] Drinks Branch History [facility] o f Alcohol Binge [place] Medic al Branch History of Passive smoker University of tobacco use [facility] Exposure to 2021-12-07 2021-12-17 Not sure University of SARS-CoV-2 00:00:00 13:03:00 [facility] (event) [place] Alcohol intake 2021-10-10 2021-10-10 Current drinker Unive rsity of 00:00:00 00:00:00 of alcohol [facility] (finding) [place] Tobacco use and 2021-10-10 2021-10-10 Smokeless tobacco Un iversity of exposure 00:00:00 00:00:00 non-user [facility] Alcohol Comment 2021-07-21 2021-07-21 ocassional Universit y of 00:00:00 00:00:00 [facility] Sex Assigned At [birth year] Universit y of 00:00:00 00:00:00 [facility] Smoking Status Start Date Stop Date Source Never smoked tobacco [facility] Medications Ordered Filled Start Stop Current Ordering Indication Dosage Frequency Signature Comments Components Source Medication Medication Date Date Medication? Clinician (SIG) Name Name SERTRALINE 2021-03 Yes [id number] 75mg TAKE 1.5 Univers 50 mg 0-04 TABLETS BY ity of tablet 00:00: MOUTH IN [place] 00 THE Medical MORNING. Branch SERTRALINE 2021-03 Yes [id number] 75mg TAKE 1.5 Univers 50 mg 0-04 TABLETS BY ity of tablet 00:00: MOUTH IN [place] 00 THE Medical MORNING. Branch SERTRALINE 2021-03 Yes [id number] 75mg TAKE 1.5 Univers 50 mg 0-04 TABLETS BY ity of tablet 00:00: MOUTH IN [place] 00 THE Medical MORNING. Branch SERTRALINE 1 Yes [id number] 75mg TAKE 1.5 Univers 50 mg 0-04 TABLETS BY ity of tablet 00:00: MOUTH IN [place] 00 THE Medical MORNING. Branch SERTraline 2021-0 Yes [id number] 75mg Take 1.5 Univers 50 mg 9-07 tablets by ity of tablet 00:00: mouth in [place] 00 the Medical morning. Branch pantoprazol 2021-0 Yes [id number] 40mg Take 1 Univers e 40 mg EC 9-07 tablet by ity of tablet 00:00: mouth in [place] 00 the Medical morning. Branch SERTraline 2021-0 Yes [id number] 75mg Take 1.5 Univers 50 mg 9-07 tablets by ity of tablet 00:00: mouth in [place] 00 the Medical morning. Branch pantoprazol 2021-0 Yes [id number] 40mg Take 1 Univers e 40 mg EC 9-07 tablet by ity of tablet 00:00: mouth in [place] 00 the Medical morning. Branch pantoprazol 2021-0 Yes [id number] 40mg Take 1 Univers e 40 mg EC 9-07 tablet by ity of tablet 00:00: mouth in [place] 00 the Medical morning. Branch pantoprazol 2021-0 Yes [id number] 40mg Take 1 Univers e 40 mg EC 9-07 tablet by ity of tablet 00:00: mouth in [place] 00 the Medical morning. Branch pantoprazol 2021-0 Yes [id number] 40mg Take 1 Univers e 40 mg EC 9-07 tablet by ity of tablet 00:00: mouth in [place] 00 the Medical morning. Branch pantoprazol 2021-0 Yes [id number] 40mg Take 1 Univers e 40 mg EC 9-07 tablet by ity of tablet 00:00: mouth in [place] 00 the Medical morning. Branch SERTraline 2021- No [id number] 75mg Take 1.5 Univers 50 mg 9-07 10-04 tablets by ity of tablet 00:00: 00:00 mouth in [place] 00 :00 the Medical morning. Branch SERTRALINE 2021-0 Yes [id number] TAKE 1 U nivers 50 mg 8-29 TABLET BY ity of tablet 00:00: MOUTH [place] 00 EVERY DAY Medical IN THE Branch MORNING SERTRALINE Yes [id number] TAKE 1 U nivers 50 mg 8-29 TABLET BY ity of tablet 00:00: MOUTH [place] 00 EVERY DAY Medical IN THE Branch MORNING SERTRALINE 0 2021- No [id number] TAKE 1 Univers 50 mg 8-29 10-04 TABLET BY ity of tablet 00:00: 00:00 MOUTH [place] 00 :00 EVERY DAY Medical IN THE [place] MORNING Immunizations Ordered Filled Immunization Date Status Comments [facility] e Immunization Name Name Influenza Virus 2021-12-17 Completed Universit y of Vaccine Quad IM, 00:00:00 [place] Me dical Preserv and ABX Branch Free 6 MO-64 YRS Influenza Virus 2021-12-17 Completed Universit y of Vaccine Quad IM, 00:00:00 [place] Me dical Preserv and ABX Branch Free 6 MO-64 YRS Influenza Virus 2021-12-17 Completed Universit y of Vaccine Quad IM, 00:00:00 [place] Me dical Preserv and ABX Branch Free 6 MO-64 YRS SARS-COV-2 COVID-19 2020-07-31 Completed Unive rsity of MODERNA 12+ YRS 00:00:00 [place] Med ical VACCINE Branch SARS-COV-2 COVID-19 2020-07-31 Completed Unive rsity of MODERNA 12+ YRS 00:00:00 [place] Med ical VACCINE Branch SARS-COV-2 COVID-19 2020-07-31 Completed Unive rsity of MODERNA 12+ YRS 00:00:00 [facility] ical VACCINE Branch SARS-COV-2 COVID-19 2020-07-31 Completed Unive rsity of MODERNA 12+ YRS 00:00:00 [place] Med ical VACCINE Branch SARS-COV-2 COVID-19 2020-07-31 Completed Unive rsity of MODERNA 12+ YRS 00:00:00 [place] Med ical VACCINE Branch SARS-COV-2 COVID-19 2020-07-31 Completed Unive rsity of MODERNA 12+ YRS 00:00:00 [facility] ical VACCINE Branch SARS-COV-2 COVID-19 2020-07-04 Completed Unive rsity of MODERNA 12+ YRS 00:00:00 [facility] ical VACCINE Branch SARS-COV-2 COVID-19 2020-07-04 Completed Unive rsity of MODERNA 12+ YRS 00:00:00 [facility] ical VACCINE Branch SARS-COV-2 COVID-19 2020-07-04 Completed Unive rsity of MODERNA 12+ YRS 00:00:00 [facility] ical VACCINE Branch SARS-COV-2 COVID-19 2020-07-04 Completed Unive rsity of MODERNA 12+ YRS 00:00:00 [facility] ical VACCINE Branch SARS-COV-2 COVID-19 2020-07-04 Completed Unive rsity of MODERNA 12+ YRS 00:00:00 [facility] ical VACCINE Branch SARS-COV-2 COVID-19 2020-07-04 Completed Unive rsity of MODERNA 12+ YRS 00:00:00 [facility]AP 2019-01-08 Completed University of 00:00:00 [facility] Influenza Virus 2019-01-08 Completed Universit y of Vaccine Quad .5 mL 00:00:00 [facility] IM 6+ MO Branch TDAP 2019-01-08 Completed University of 00:00:00 [facility] Influenza Virus 2019-01-08 Completed Universit y of Vaccine Quad .5 mL 00:00:00 [place] Medical IM 6+ MO Branch TDAP 2019-01-08 Completed University of 00:00:00 [facility] Influenza Virus 2019-01-08 Completed Universit y of Vaccine Quad .5 mL 00:00:00 [place] [facility] IM 6+ MO Branch TDAP 2019-01-08 Completed University of 00:00:00 [facility] Influenza Virus 2019-01-08 Completed Universit y of Vaccine Quad .5 mL 00:00:00 [place] [facility] IM 6+ MO Branch TDAP 2019-01-08 Completed University of 00:00:00 [facility] Influenza Virus 2019-01-08 Completed Universit y of Vaccine Quad .5 mL 00:00:00 [place] [facility] IM 6+ MO Branch TDAP 2019-01-08 Completed University of 00:00:00 [facility] Influenza Virus 2019-01-08 Completed Universit y of Vaccine Quad .5 mL 00:00:00 [place] [facility] IM 6+ MO Branch HPV9 2015-10-03 Completed University of 00:00:00 [facility] HPV9 2015-10-03 Completed University of 00:00:00 [facility] HPV9 2015-10-03 Completed University of 00:00:00 [facility] HPV9 2015-10-03 Completed University of 00:00:00 [place] [facility] HPV9 2015-10-03 Completed University of 00:00:00 [place] [facility] HPV9 2015-10-03 Completed University of 00:00:00 [place] [facility] HPV9 2014-10-16 Completed University of 00:00:00 [place] [facility] HPV9 2014-10-16 Completed University of 00:00:00 [place] [facility] HPV9 2014-10-16 Completed University of 00:00:00 [place] [facility] HPV9 2014-10-16 Completed University of 00:00:00 [place] [facility] HPV9 2014-10-16 Completed University of 00:00:00 [place] [facility] HPV9 2014-10-16 Completed University of 00:00:00 [facility] Vital Signs Vital Name Observation Time Observation Value Comments Source Systolic blood 2021-12-17 18:11:00 99 mm[Hg] Univer sity [facility] Diastolic blood 2021-12-17 18:11:00 62 mm[Hg] [facility] Heart rate 2021-12-17 18:11:00 70 /min Universi ty of [place] [facility] [place] Body height 2021-12-17 18:11:00 167.6 cm Universi ty [facility] Body weight 2021-12-17 18:11:00 107.049 kg Universi ty [facility] BMI 2021-12-17 18:11:00 38.09 kg/m2 Universi ty [facility] Systolic blood 2021-11-12 21:27:00 110 mm[Hg] Univer sity [facility] Diastolic blood 2021-11-12 21:27:00 63 mm[Hg] [facility] [place] Heart rate 2021-11-12 21:27:00 89 /min Universi ty [facility] Body height 2021-11-12 21:27:00 167.6 cm Universi ty of [place] [facility] Body weight 2021-11-12 21:27:00 108.41 kg Universi ty of [place] [facility] [place] BMI 2021-11-12 21:27:00 38.58 kg/m2 Universi ty [facility] Procedures Procedure Date / Time Performed Performing Clinician Sourc e FLU VACC (), 2021-12-17 18:19:14 Noman Champion [facility] 6 MO-64 YRS, .5ML, Medical Branc h IM, QUAD (FLUCELVAX) Encounters Start End Encounter Admission Attending Care Care Encounter Source Date/Time Date/Time Type Type Clinicians Facility Department ID 2021-02-25 Inpatient DEVAN ValeroCL DAYS [id number] [facility] 11:00:00 Khalif 80 [facility] 2020-02-04 Inpatient [facility] [id number] [facility] 05:53:00 72 2022-08-08 2022-08-08 [facility] [id number] Univers 00:00:00 00:00:00 [place] [address]..13.10 it y of Vikas ARIZMENDI 4.2.7.2.686 José Manuel as GALEN?BLEA [id number] [address] MEDICAL OFFICE BUILDING 2022-05-06 2022-05-06 [facility]patient [facility] [id number] Univers 13:30:00 13:30:00 [facility] 2022-03-19 2022-03-19 Outpatient [facility] [id number] Univers 14:00:00 14:00:00 [facility] 2022-03-16 2022-03-16 Outpatient [facility] [id number] Univers 15:30:00 15:30:00 [facility] 2022-02-24 2022-02-25 Inpatient BULLOCK, [facility] SETH [id number] [facility]FB 11:38:00 15:25:00 [place] 2021-12-17 2021-12-17 Outpatient [facility] [id number] Univers 13:00:00 13:26:08 [facility] 2021-12-17 2021-12-17 [facility] [id number] Univers 13:00:00 13:26:08 Visit [facility] 350..13.10 it y of Vikas ARIZMENDI 4.2.7.2.686 José Manuel as GALEN?BLEA [id number] Mi jaycee H[address] OFFICE [facility] 2021-12-09 2021-12-09 [facility] 1.2.840.114 [id number] Univers 00:00:00 00:00:00 [facility] [id number] it y of [place] 4.2.7.2.686 José Manuel as GALEN?BLEA [id number] [address] OFFICE [facility] 2021-11-12 2021-11-[address] [facility] 1.2.840.114 [id number] Univers 16:15:00 16:30:00 Visit [facility] [id number] it y of [place] 4.2.7.2.686 José Manuel as GALEN?BLEA [id number] [address] 2021-11-12 2021-11-12 [facility] [id number] Univers 16:15:00 16:15:00 [facility] 2021-11-12 2021-11-12 Outpatient R [facility] [id number] Univers 16:15:00 16:15:00 [facility] 2021-11-11 2021-11-11 Outpatient [facility] [id number] Univers 09:15:00 09:15:00 [facility] 2021-11-01 2021-11-01 [facility] 1.2.840.114 [id number] Univers 00:00:00 00:00:00 [facility] [id number] it y of [place] 4.2.7.2.686 José Manuel as GALEN?BLEA [id number] [address] 2021-10-10 2021-10-10 Material Worker Lab, Ang [facility] 1.2.840.1 [id number] Univers 10:00:00 10:15:00 Visit ZaidarodgerNoman [facility] [id number] .10 ity of [place] 4.2.7.2.686 José Manuel as GALEN?BLEA [id number] Mi dicbaldev HYDE 353 [facility] 2021-10-10 2021-10-10 Office Akira [facility] 1.2.840.114 [id number] Univers 09:30:00 10:00:00 Visit [facility] [id number] it y of Vikas ARIZMENDI 4.2.7.2.686 José Manuel as GALEN?BLEA [id number] Mi dicbaldev HYDE 044 [facility] 2021-10-10 2021-10-10 Outpatient R AKIRA [facility] [id number] Univers 09:30:00 09:55:10 NOMAN kiley [facility] 2021-10-10 2021-10-10 Outpatient R AKIRA [facility] [id number] Univers 09:30:00 09:30:00 NOMAN [facility] 2021-10-03 2021-10-03 Pre Visit ENRIQUE Larkin [id number] Univers 00:00:00 00:00:00 Outreach Phuong MORRISON [id number] [place]y [place] [id number] [facility] [address] [place] [address] 2021-07-21 2021-07-21 Material Worker 2, Adc Lab [facility] 1.2.840.114 [id number] Univers 16:15:00 16:30:00 Visit Petrona Perez [id number] ity of [place].2.686 [place] [phone] Mi dicbaldev NAL 353 [facility] 2021-07-21 2021-07-21 Outpatient R PETRONA PEREZ [facility] [id number] Univers 16:15:00 16:15:00 ity of [facility] 2021-07-21 2021-07-21 Office Petrona Perez [facility] [id number] [id number] Univers 15:30:00 16:04:18 Visit Earnest ARIZMENDI [id number] i ty of [place].2.[place] PROF[place] [id number] Mi dical NAL 134 Branch [facility] 2021-07-21 2021-07-21 Outpatient R PETRONA PEREZ [facility] [id number] Univers 15:30:00 16:04:18 ity of [facility] 2021-07-21 2021-07-21 Orders Doctor ONEILL 1.2.840.114 [id number] Univers 00:00:00 00:00:00 Only Unassigned, NICK [id number] ity of [place] [facility] 4.2.7.2.686 José Manuel as [id number] [facility] 009 [place] 2021-07-04 2021-07-04 Outpatient R ZAIDARODGER, [facility] [id number] Univers 13:30:00 13:30:00 NOMAN ity [facility] 2021-04-17 2021-04-17 Letter NINO Caicedo 1.2.840.114 [id number] Univers 00:00:00 00:00:00 (Out) Nataliya ROMERO [id number] it y of [facility] 4.2.7.2.686 José Manuel as [id number] [facility] 019 [place] 2021-04-16 2021-04-16 Outpatient R ANIBAL [facility] [id number] Univers 19:20:00 19:38:01 REBECCA santana o f [facility] 2021-04-16 2021-04-16 [facility]gent [facility] 1.2.840. 114 [id number] Univers 19:20:00 19:38:01 Jose [facility] [id number] ity [facility] 4.2.7.2.686 José Manuel as GALEN?BLEA [id number] Mi jaycee [address] MEDICAL OFFICE BUILDING 2021-02-14 2021-02-14 Outpatient JOLANTA BURNHAMSE MHSE [id number] MH 12:55:00 21:50:[address] [facility] 2020-06-17 2020-06-17 Telephone de [facility] 1.2.840.114 [id number] 00:00:00 00:00:00 Jarod Raymundo 350.1.13.10 [place] 4.2.7.2.686 Clinic [id number] 2020-06-17 2020-06-17 Telephone de [facility] 1.2.840.114 [id number] Univers 00:00:00 00:00:00 Jarod Raymundo 350.1.13.10 ity of [place] [facility] [place].2.686 [place] [facility] [id number] [facility] 225 Branch 2020-05-28 2020-05-28 Patient Gutierrez [facility] 1.2.840.114 [id number] 00:00:00 00:00:00 Outreach Kai PRIMARY 350.1.13.10 [place] [facility] 4.2.7.2.686 PAVILLION [id number] 388 2020-05-28 2020-05-28 Patient Gutierrez [facility] 1.2.840.114 [id number] Univers 00:00:00 00:00:00 Outreach Kai PRIMARY [id number] i ty of [place]2.[place].2.[place] [id number] [address] 2020-02-04 2020-02-04 [facility] [id number] [facility] 05:53:00 05:53:00 72 2019-12-02 2019-12-02 Laboratory Lab, [facility] 1.2.840.114 [id number] 14:31:28 14:51:28 Only Fam Pob I Health 350.1.13.10 [place] 4.2.7.2.686 Professio [id number] nal [facility] Office Building [facility] 2019-12-02 2019-12-02 Laboratory Lab, [facility] Fam Pob I [facility] 1.2. 840.114 [id number] Univers 14:31:28 14:51:28 Only Apple Frias [facility] [id number] ity of [place] 4.2.7.2.686 José Manuel as Professio [id number] Mi dic[address] Office Building One 2019-12-02 2019-12-02 Outpatient R ALTAGRACIA [facility] [id number] Univers 14:20:00 14:20:00 APPLE ity of [facility] 2019-12-02 2019-12-02 Letter Doctor ONEILL 1.2.840.114 [id number] 00:00:00 00:00:00 (Out) Unassigned, NICK 350.1.13.10 [place] [facility] 4.2.7.2.686 [id number] 2019-12-02 2019-12-02 Letter Doctor NINO 1.2.840.114 [id number] Univers 00:00:00 00:00:00 (Out) Unassigned, NICK 350.1.13.10 ity of [place] [facility] 4.2.7.2.686 José Manuel as [phone] [address] 2019-11-21 2019-11-21 Outpatient R [facility] [id number] Univers 08:20:00 08:20:00 [facility] 2019-11-16 2019-11-16 Outpatient R [facility] [id number] Univers 14:00:00 14:00:00 [facility] 2019-11-03 2019-11-03 Office Gary Del Toro [facility] 1.2.840.114 [id number] 08:56:18 09:24:12 Visit Jarod 350.1.13.10 Pediatric 4.2.7.2.686 Clinic [id number] [facility] 2019-11-03 2019-11-03 Office Gary Del Toro [facility] 1.2.840.114 [id number] [facility] 08:56:18 09:24:12 Visit Jarod 350.1.13.10 [place] y [place].2.686 [place] [facility] [id number] [facility] 225 [place] 2019-11-03 2019-11-03 Outpatient R KATEYGARY PATEL [facility] [id number] Univers 09:00:00 09:00:00 ity [facility] 2019-11-03 2019-11-03 Orders Doctor NINO 1.2.840.114 [id number] Univers 00:00:00 00:00:00 Only Unassigned, NICK 350.1.13.10 ity of [place] [facility] 4.2.7.2.686 José Manuel as [id number] [facility] 009 [place] 2019-09-29 2019-09-29 Outpatient R [facility] [id number] Univers 10:00:00 10:00:00 CAMILLA ity of [facility] 2019-08-03 2019-08-03 Outpatient R [facility] [id number] Univers 15:40:00 15:40:00 ity of [facility] 2019-05-29 2019-05-29 Telephone [facility] Castillo 1.2.840.11 [id number] Univers 00:00:00 00:00:00 , Margo Olivera 350.1.13.10 it y of [place].2.686 [place] [facility] [id number] [address] 2019-04-25 2019-04-25 Outpatient R [facility] [id number] Univers 08:10:00 08:53:36 , MARGO santana [facility] 2019-04-25 2019-04-25 Office [facility] 1.2.840.114 [id number] Univers 08:05:29 08:53:36 Visit , Margo Olivera 350.1.13.10 it y of [place] 4[place]2.7.2.686 [place] [facility] [id number] [address] 2019-03-28 2019-03-28 Telephone Gary Del Toro [facility] 1.2.840.114 [id number] Univers 00:00:00 00:00:00 Jarod 350.1.13.10 it y of [place] 4.2.7.2.686 [place] [facility] [id number] [facility] 225 [place] 2018-11-24 2018-11-24 Orders Doctor NINO 1.2.840.114 [id number] Univers 00:00:00 00:00:00 Only Unassigned, NICK 350.1.13.10 ity of [place] [facility] 4.2.7.2.686 José Manuel as [id number] [facility] 009 Branch 2018-11-15 2018-11-[address] [facility] 1.2.840.11 [id number] Univers 00:00:00 00:00:00 Monica Ervin 350.1.13.10 ity of [place]2.7.2.686 [place] [facility] [id number] Medi alayna 225 Branch Results Test Description Test Time [...] code = NRBCP) 0 % Comprehensive Metabolic [id number] 06:35:00 Test Item Value Reference Range Interpretation [...] 57 U/L 46-116 N = ALP) Ethanol [id number] 06:35:00 Test Item Value Reference Range Interpretation Comments Ethanol (test code = ETOH) < 3 mg/dL UA, Urinalysis Rflx Cult/[id number] 06:35:00 Test Item Value Reference Range Interpretation Comments Color,Urine (test code Yellow Yellow = UCOL) Clarity,Urine (test Clear Clear code = UCLAR) PH,Urine (test code = 7.0 5.5-8.5 UPH.XX) Specific [place],Urine 1.020 1.005-1.030 N (test code = USG) [...] A Esterase,Urine (test code = ULEU) Urine [id number] 06:35:00 Test Item Value Reference Range Interpretation [...] (test code = HCGU) Positive Negative Drug Screen,[id number] 06:34:00 Test Item Value Reference Range Interpretation [...]
--- NOTE | 2022-08-22 12:06 | RAD REPORT ---
EXAM DESCRIPTION: RAD - Shoulder Left 2 View - 08/22/2022 11:59 am CLINICAL HISTORY: PAIN COMPARISON: No comparisons FINDINGS: No fracture or dislocation.
--- NOTE | 2022-08-22 12:21 | EDPHYS ---
Physician Documentation [facility] Name: Milvia Murdock Age: 21 yrs Sex: Female : 2000 Arrival Date: 08/22/2022 Time: 10:55 Bed 13 Private MD: ED Physician Krunal Mendez HPI: 08/22 12:15 This 21 yrs old Female presents to ER via Ambulatory with complaints of rn Shoulder Pain. 12:15 The patient or guardian complains of an injury, pain. left shoulder. left shoulder and rn left trapezius. Onset: The symptoms/episode began/occurred yesterday. Modifying factors: the symptoms are alleviated by remaining still, The symptoms are aggravated by movement, rotation of arm. Associated signs and symptoms: Pertinent negatives: abdominal pain, chest pain, neck pain, shortness of breath, tingling. Severity of symptoms: At their worst the symptoms were moderate, in the emergency department the symptoms are unchanged. The patient has not experienced similar symptoms in the past. Pt reports slid into third base yesterday, had some discomfort in left shoulder but still able to play rest of game, today woke up with more pain. Hurts to rotate and lift. No weakness/numbness.. Historical: - Allergies: 11:17 Prozac; kr3 - Home Meds: 11:17 duloxetine 30 mg oral Capsule, Delayed Release Sprinkle daily [Active]; kr3 - PMHx: 11:17 Asthma; Depression; kr3 - PSHx: 11:17 Tonsillectomy; right foot surgery; kr3 - Immunization history:: Adult Immunizations up to date. - Social history:: Smoking status: Patient denies any tobacco usage or history of. - Family history:: not pertinent. - Hospitalizations: : No recent hospitalization is reported. ROS: 12:15 Constitutional: Negative for fever, chills, and weight loss, Neck: Negative for injury, rn pain, and swelling, MS/Extremity: + pain to left shoulder Neuro: Negative for headache, weakness, numbness, tingling, and seizure. Exam: 12:15 Constitutional: This is a well developed, well nourished patient who is awake, alert, rn and in no acute distress. Neck: FROM of neck without pain MS/ Extremity: Pulses equal, no cyanosis. Neurovascular intact. Able to touch opposite shoulder on her own, no discoloration of skin, no ecchymosis, Mild tenderness left shoulder joint, no clavicle tenderness or deformity noted. Vital Signs: 11:12 BP 109 / 78; Pulse 64; Resp 18; Temp 98.6(O); Pulse Ox 99% on R/A; Weight 83.01 kg; kr3 Height 5 ft. 7 in. ; Pain 7/10; 11:12 Body Mass Index 28.66 (83.01 kg, 170.18 cm) kr3 11:12 Pain Scale: Adult kr3 MDM: 11:01 Patient medically screened. rn 12:15 Differential diagnosis: glenoid fracture, strain, sprain, shoulder separation. Data rn reviewed: vital signs, nurses notes, radiologic studies, plain films, and as a result, I will discharge patient. Counseling: I had a detailed discussion with the patient and/or guardian regarding: the historical points, exam findings, and any diagnostic results supporting the discharge/admit diagnosis, radiology results, the need for outpatient follow up, to return to the emergency department if symptoms worsen or persist or if there are any questions or concerns that arise at home. Special discussion: I discussed with the patient/guardian in detail that at this point there is no indication for admission to the hospital. It is understood, however, that if the symptoms persist or worsen the patient needs to return immediately for re-evaluation. Further emergent ED testing is not indicated at this point in time. I discussed with the patient/guardian in detail the need to arrange with the PCP or specialist further outpatient testing, MRI. 08/22 11:08 Order name: XRAY Shoulder LEFT 2 view; Complete Time: 12:11 kr3 Administered Medications: No medications were administered Disposition Summary: 08/22/22 12:20 Discharge Ordered Location: Home rn Problem: new rn Symptoms: have improved rn Condition: Stable rn Diagnosis - Strain of muscle(s) and tendon(s) of the rotator cuff of left shoulder rn Followup: rn - With: Nikita Cisneros MD - When: As needed - Reason: Recheck today's complaints, Re-evaluation by your physician Discharge Instructions: - Discharge Summary Sheet rn - Shoulder Sprain rn Forms: - Medication Reconciliation Form rn - Thank You Letter rn - Antibiotic apple turner - Prescription Opioid Use rn Signatures: Dispatcher [employer] EDMS Krunal Mendez MD MD rn Esmer Stewart, RAMIRO RN kr3
--- NOTE | 2022-08-22 12:21 | ER ---
Nurse's Notes [facility] Name: Milvia Murdock Age: 21 yrs Sex: Female : 2000 Arrival Date: 08/22/2022 Time: 10:55 Bed 13 Private MD: Diagnosis: Strain of muscle(s) and tendon(s) of the rotator cuff of left shoulder Presentation: 08/22 11:12 Chief complaint: Patient states: I slid into 3rd base head first yesterday playing coed kr3 softball and jammed my hand into the base. Coronavirus screen: Vaccine status: Patient reports receiving the 2nd dose of the covid vaccine. Ebola Screen: Patient denies travel to an Ebola-affected area in the 21 days before illness onset. Initial Sepsis Screen: Does the patient meet any 2 criteria? No. Patient's initial sepsis screen is negative. Does the patient have a suspected source of infection? No. Patient's initial sepsis screen is negative. Risk Assessment: Do you want to hurt yourself or someone else? Patient reports no desire to harm self or others. Onset of symptoms was August 22, 2022. 11:12 Method Of Arrival: Ambulatory kr3 11:12 Acuity: KULDEEP 4 kr3 Triage Assessment: 11:18 General: Appears in no apparent distress. comfortable, Behavior is calm, cooperative, kr3 appropriate for age. Pain: Complains of pain in left shoulder. EENT: No deficits noted. Neuro: No deficits noted. Cardiovascular: Patient's skin is warm and dry. Respiratory: Airway is patent Respiratory effort is even, unlabored, Respiratory pattern is regular, symmetrical. GI: No signs and/or symptoms were reported involving the gastrointestinal system. : No signs and/or symptoms were reported regarding the genitourinary system. Derm: No signs and/or symptoms reported regarding the dermatologic system. Musculoskeletal: No deficits noted. Historical: - Allergies: 11:17 Prozac; kr3 - Home Meds: 11:17 duloxetine 30 mg oral Capsule, Delayed Release Sprinkle daily [Active]; kr3 - PMHx: 11:17 Asthma; Depression; kr3 - PSHx: 11:17 Tonsillectomy; right foot surgery; kr3 - Immunization history:: Adult Immunizations up to date. - Social history:: Smoking status: Patient denies any tobacco usage or history of. - Family history:: not pertinent. - Hospitalizations: : No recent hospitalization is reported. Screenin:15 [facility] ED Fall Risk Assessment (Adult) History of falling in the last 3 months, ko1 including since admission No falls in past 3 months (0 pts) Confusion or Disorientation No (0 pts) Intoxicated or Sedated No (0 pts) Impaired Gait No (0 pts) Mobility Assist Device Used No (0 pt) Altered Elimination No (0 pt) Score/Fall Risk Level 0 - 2 = Low Risk Oriented to surroundings, Maintained a safe environment, Educated pt \T\ family on fall prevention, incl call for assistance when getting out of bed, Assessed \T\ reinforced patient's understanding of fall precautions, Provided non-skid footwear, Hourly rounding (assess needs \T\ fall precautionary measures) done, Used ambulatory aids as needed (educated on \T\ assisted with), Used gait belt as appropriate. Abuse screen: Denies threats or abuse. Denies injuries from another. Nutritional screening: No deficits noted. Nutritional screening: No deficits noted. Tuberculosis screening: No symptoms or risk factors identified. Assessment: 11:15 General: Appears in no apparent distress. comfortable, Behavior is calm, cooperative, ko1 appropriate for age. Pain: Pain: Complains of pain in anterior aspect of left shoulder. 11:15 Neuro: No deficits noted. Cardiovascular: No deficits noted. Respiratory: No deficits ko1 noted. GI: No deficits noted. : No deficits noted. 11:15 EENT: No deficits noted. Derm: No deficits noted. Musculoskeletal: Reports pain in left ko1 shoulder. Vital Signs: 11:12 BP 109 / 78; Pulse 64; Resp 18; Temp 98.6(O); Pulse Ox 99% on R/A; Weight 83.01 kg; kr3 Height 5 ft. 7 in. ; Pain 7/10; 11:12 Body Mass Index 28.66 (83.01 kg, 170.18 cm) kr3 11:12 Pain Scale: Adult kr3 ED Course: 10:57 Patient arrived in ED. ts1 11:01 Krunal Mendez MD is Attending Physician. rn 11:15 Patient has correct armband on for positive identification. Bed in low position. Call ko1 light in reach. Pulse ox on. NIBP on. 11:15 No provider procedures requiring assistance completed. ko1 11:17 Triage completed. kr3 11:19 Arm band placed on right wrist. Patient placed in an exam room, on a stretcher. kr3 11:22 Maida Steinberg, RN is Primary Nurse. ko1 12:01 XRAY Shoulder LEFT 2 view In Process Unspecified. EDMS 12:20 Nikita Cisneros MD is Referral Physician. rn 12:30 Patient did not have IV access during this emergency room visit. ss Administered Medications: No medications were administered Medication: 11:15 VIS not applicable for this client. ko1 Outcome: 12:20 Discharge ordered by . rn 12:30 Discharged to home ambulatory. ss 12:30 Condition: good 12:30 Discharge instructions given to patient, family, Instructed on discharge instructions, follow up and referral plans. 12:30 Patient left the ED. ss Signatures: Dispatcher [employer] EDAR Krunal Mendez MD MD rn Blanchard, Shelby, RN RN ss Esmer Stewart RN RN kr3 Maida Steinberg, RN RN ko1 Fay Gambino PAS PAS ts1 Corrections: (The following items were deleted from the chart) 11:45 11:15 Pain: ko1 ko1
[2022-08-22 12:35] VITALS: BP 109/78; TEMP 98.6; O2SAT 99
== END 2022-08-22 12:30 | disposition home or self-care (01) ==
LOC: ER 10:55
DX: S46.012A Strain of muscle(s) and tendon(s) of the rotator cuff of left shoulder, initial encounter (principal); Z88.8 Allergy status to other drugs, medicaments and biological substances
CPT/HCPCS: 99283

== ENCOUNTER 2022-09-15 09:30 | Emergency (ER) | payer BC, OTHER ==
--- OUTSIDE RECORDS SUMMARY | 2022-09-15 09:33 | XMS REPORT | Continuity of Care Document ---
:[address] [facility] t Address [address] [place] [address] Care Team Providers Name Role Phone NOMAN CHAMPION Primary Care Physician Unavailable Khalif Burnham Attending Clinician Unavailable PETRONA PEREZ Attending Clinician Unavailable Noman Champion MD Attending Clinician NOMAN CHAMPION Attending Clinician Unavailable TRENTON BULLOCK Attending Clinician Unavailable Lab, Ang - Db Attending Clinician Unavailable Phuong Larkin MA Attending Clinician Unavailable 2, Adc Lab Attending Clinician Unavailable Petrona Perez MD Attending Clinician Doctor Unassigned, [place] Attending Clinician Unavailable Nataliya Caicedo RN Attending Clinician Unavailable REBECCA BARNETT Attending Clinician Unavailable Anibal FINANCIAL COMPLIANCE EXAMINER, Rebecca Attending Clinician Sebastien MART, Lucretia Attending Clinician KHALIF BURNHAM Attending Clinician Unavailable Deshpande FINANCIAL COMPLIANCE EXAMINER, Stefani Attending Clinician Kai Whitley DO Attending Clinician Lab, Adc Fam Pob I Attending Clinician Unavailable Altagracia DALTON, Apple Attending Clinician APPLE FRIAS Attending Clinician Unavailable CAMILLA YUN Attending Clinician Unavailable Katey MART, Gary Attending Clinician GARY DEL TORO Attending Clinician Unavailable Cholo PARKER, Margo Rea Attending Clinician MARGO AVENDANO Attending Clinician Unavailable Monica Stein MD Attending Clinician TRENTON BULLOCK Admitting Clinician Unavailable Payers Payer Name Policy Type Policy Number Effective Date Expiration Date S ource [place] [id number] 2021 2022 00:00:00 00:00:00 Problems Condition Condition [...] 00 Medical Branch FLUOXETI DRUG Active Hives 2022-0 Univers NE INGREDI 5-19 ity of 00:00: [place] 00 Medical Branch fluoxeti DA Active U Rash 2019-03 SJm ne 04-05 00:00: 00 Fluoxeti Propensi Active Rash 2017- Univer s ne Hcl ty to 09-27 ity of adverse 00:00: [place] reaction 00 Medical s Branch FLUOXETI DRUG Active Hives 2017- Univers NE HCL INGREDI 09-27 ity of 00:00: [place] 00 Medical Branch Social History Social Habit Start Date Stop Date Quantity Comments Source History SDOH University o f Alcohol Frequency [facility] edical Branch History SDOH University o f Alcohol Std [place] [facility] Branch History SDDE University o f Alcohol Binge [place] [facility] al Branch History of Passive smoker University of tobacco use [facility] Exposure to 2021-12-07 2021-12-17 Not sure University of SARS-CoV-2 00:00:00 13:03:00 [facility] [place] [facility] (event) [place] Alcohol intake 2021-10-10 2021-10-10 Current drinker Unive rsity of 00:00:00 00:00:00 of alcohol [facility] [place] [facility] (finding) [place] Tobacco use and 2021-10-10 2021-10-10 Smokeless tobacco Un iversity of exposure 00:00:00 00:00:00 non-user [facility] Alcohol Comment 2021-07-21 2021-07-21 ocassional Universit y of 00:00:00 00:00:00 [facility] Sex Assigned At [birth year] Universit y of 00:00:00 00:00:00 [facility] Smoking Status Start Date Stop Date Source Never smoked tobacco [facility] Medications Ordered Filled Start Stop Current Ordering Indication Dosage Frequency Signature Comments Components Source Medication Medication Date Date Medication? Clinician (SIG) Name Name SERTRALINE 2021-03 Yes [id number] 75mg TAKE 1.5 Univers 50 mg 0-04 TABLETS BY ity of tablet 00:00: MOUTH IN [place] 00 THE Medical MORNING. Branch SERTRALINE 2021-03 Yes [id number] 75mg TAKE 1.5 Univers 50 mg 0-04 TABLETS BY ity of tablet 00:00: MOUTH IN [place] 00 THE Medical MORNING. Branch SERTRALINE 2021-03 Yes [id number] 75mg TAKE 1.5 Univers 50 mg 0-04 TABLETS BY ity of tablet 00:00: MOUTH IN [place] 00 THE Medical MORNING. Branch SERTRALINE 1 Yes [id number] 75mg TAKE 1.5 Univers 50 mg 0-04 TABLETS BY ity of tablet 00:00: MOUTH IN [place] 00 THE Medical MORNING. Branch SERTraline 2021-0 Yes [id number] 75mg Take 1.5 Univers 50 mg 9-07 tablets by ity of tablet 00:00: mouth in [place] 00 the Medical morning. Branch pantoprazol 2021-0 Yes [id number] 40mg Take 1 Univers e 40 mg EC 9-07 tablet by ity of tablet 00:00: mouth in [place] 00 the Medical morning. Branch SERTraline 2021-0 Yes [id number] 75mg Take 1.5 Univers 50 mg 9-07 tablets by ity of tablet 00:00: mouth in [place] 00 the Medical morning. Branch pantoprazol 2021-0 Yes [id number] 40mg Take 1 Univers e 40 mg EC 9-07 tablet by ity of tablet 00:00: mouth in [place] 00 the Medical morning. Branch pantoprazol 2021-0 Yes [id number] 40mg Take 1 Univers e 40 mg EC 9-07 tablet by ity of tablet 00:00: mouth in [place] 00 the Medical morning. Branch pantoprazol 2021-0 Yes [id number] 40mg Take 1 Univers e 40 mg EC 9-07 tablet by ity of tablet 00:00: mouth in [place] 00 the Medical morning. Branch pantoprazol 2021-0 Yes [id number] 40mg Take 1 Univers e 40 mg EC 9-07 tablet by ity of tablet 00:00: mouth in [place] 00 the Medical morning. Branch pantoprazol 2021-0 Yes [id number] 40mg Take 1 Univers e 40 mg EC 9-07 tablet by ity of tablet 00:00: mouth in [place] 00 the Medical morning. Branch SERTraline 2021-0 2021- No [id number] 75mg Take 1.5 Univers 50 mg 9-07 10-04 tablets by ity of tablet 00:00: 00:00 mouth in [place] 00 :00 the Medical morning. Branch SERTRALINE 2021-0 Yes [id number] TAKE 1 U nivers 50 mg 8-29 TABLET BY ity of tablet 00:00: MOUTH [place] 00 EVERY DAY Medical IN THE Branch MORNING SERTRALINE 2021-0 Yes [id number] TAKE 1 U nivers 50 mg 8-29 TABLET BY ity of tablet 00:00: MOUTH [place] 00 EVERY DAY Medical IN THE Branch MORNING SERTRALINE 0 2021- No [id number] TAKE 1 Univers 50 mg 8-29 10-04 TABLET BY ity of tablet 00:00: 00:00 MOUTH [place] 00 :00 EVERY DAY Medical IN THE Branch MORNING Immunizations Ordered Filled Immunization Date Status Comments [facility] e Immunization Name Name Influenza Virus 2021-12-17 Completed Universit y of Vaccine Quad IM, 00:00:00 [place] Me dical Preserv and ABX Branch Free 6 MO-64 YRS Influenza Virus 2021-12-17 Completed Universit y of Vaccine Quad IM, 00:00:00 [place] Me dical Preserv and ABX Branch Free 6 MO-64 YRS Influenza Virus 2021-12-17 Completed Universit y of Vaccine Quad IM, 00:00:00 [place] Me dical Preserv and ABX Branch Free 6 MO-64 YRS SARS-COV-2 COVID-19 2020-07-31 Completed Unive rsity of MODERNA 12+ YRS 00:00:00 [place] Med ical VACCINE Branch SARS-COV-2 COVID-19 2020-07-31 Completed Unive rsity of MODERNA 12+ YRS 00:00:00 [place] Med ical VACCINE Branch SARS-COV-2 COVID-19 2020-07-31 Completed Unive rsity of MODERNA 12+ YRS 00:00:00 [facility] ical VACCINE Branch SARS-COV-2 COVID-19 2020-07-31 Completed Unive rsity of MODERNA 12+ YRS 00:00:00 [place] Med ical VACCINE Branch SARS-COV-2 COVID-19 2020-07-31 Completed Unive rsity of MODERNA 12+ YRS 00:00:00 [place] Med ical VACCINE Branch SARS-COV-2 COVID-19 2020-07-31 Completed Unive rsity of MODERNA 12+ YRS 00:00:00 [facility] ical VACCINE Branch SARS-COV-2 COVID-19 2020-07-04 Completed Unive rsity of MODERNA 12+ YRS 00:00:00 [facility] ical VACCINE Branch SARS-COV-2 COVID-19 2020-07-04 Completed Unive rsity of MODERNA 12+ YRS 00:00:00 [facility] ical VACCINE Branch SARS-COV-2 COVID-19 2020-07-04 Completed Unive rsity of MODERNA 12+ YRS 00:00:00 [facility] ical VACCINE Branch SARS-COV-2 COVID-19 2020-07-04 Completed Unive rsity of MODERNA 12+ YRS 00:00:00 [facility] ical VACCINE Branch SARS-COV-2 COVID-19 2020-07-04 Completed Unive rsity of MODERNA 12+ YRS 00:00:00 [facility] VACCINE Branch SARS-COV-2 COVID-19 2020-07-04 Completed Unive rsity of MODERNA 12+ YRS 00:00:00 [facility] VACCINE Branch TDAP 2019-01-08 Completed University of 00:00:00 [facility] Influenza Virus 2019-01-08 Completed Universit y of Vaccine Quad .5 mL 00:00:00 [facility] 6+ MO Branch TDAP 2019-01-08 Completed University of 00:00:00 [facility] Influenza Virus 2019-01-08 Completed Universit y of Vaccine Quad .5 mL 00:00:00 [facility] [place] [facility] IM 6+ MO Branch TDAP 2019-01-08 Completed University of 00:00:00 [facility] Influenza Virus 2019-01-08 Completed Universit y of Vaccine Quad .5 mL 00:00:00 [facility] 6+ MO Branch TDAP 2019-01-08 Completed University of 00:00:00 [facility] Influenza Virus 2019-01-08 Completed Universit y of Vaccine Quad .5 mL 00:00:00 [facility] 6+ MO Branch TDAP 2019-01-08 Completed University of 00:00:00 [facility] Influenza Virus 2019-01-08 Completed Universit y of Vaccine Quad .5 mL 00:00:00 [facility] 6+ MO Branch TDAP 2019-01-08 Completed University of 00:00:00 [facility] Influenza Virus 2019-01-08 Completed Universit y of Vaccine Quad .5 mL 00:00:00 [facility] 6+ MO Branch HPV9 2015-10-03 Completed University of 00:00:00 [facility] HPV9 2015-10-03 Completed University of 00:00:00 [facility] HPV9 2015-10-03 Completed University of 00:00:00 [facility] HPV9 2015-10-03 Completed University of 00:00:00 [facility] HPV9 2015-10-03 Completed University of 00:00:00 [place] [facility] HPV9 2015-10-03 Completed University of 00:00:00 [place] [facility] HPV9 2014-10-16 Completed University of 00:00:00 [place] [facility] HPV9 2014-10-16 Completed University of 00:00:00 [place] [facility] HPV9 2014-10-16 Completed University of 00:00:00 [place] [facility] HPV9 2014-10-16 Completed University of 00:00:00 [place] [facility] HPV9 2014-10-16 Completed University of 00:00:00 [place] [facility] HPV9 2014-10-16 Completed University of 00:00:00 [facility] Vital Signs Vital Name Observation Time Observation Value Comments Source Systolic blood 2021-12-17 18:11:00 99 mm[Hg] Univer sity [facility] Diastolic blood 2021-12-17 18:11:00 62 [facility]Hg[facility] Heart rate 2021-12-17 18:11:00 70 /min Universi ty [facility] Body height 2021-12-17 18:11:00 167.6 cm Universi ty [facility] Body weight 2021-12-17 18:11:00 107.049 kg Universi ty [facility] BMI 2021-12-17 18:11:00 38.09 kg/m2 Universi ty [facility] Systolic blood 2021-11-12 21:27:00 110 mm[facility]Hg] [facility] Di[facility] blood 2021-11-12 21:27:00 63 mm[Hg] [facility] Heart rate 2021-11-12 21:27:00 89 /min Universi ty [facility] Body height 2021-11-12 21:27:00 167.6 cm Universi ty [facility] Body weight 2021-11-12 21:27:00 108.41 kg Universi ty [facility] BMI 2021-11-12 21:27:00 38[facility]58 [facility] Procedure Date / Time Performed Performing Clinician Sourc e FLU VACC (), 2021-12-17 18:19:[address] [facility] 6 MO-64 YRS, .5ML, Medical Branc h IM, QUAD (FLUCELVAX) Encounters Start End Encounter Admission Attending Care Care Encounter Source Date/Time Date/Time Type Type Clinicians Facility Department ID 2021-02-25 Inpatient JUAN MANUEL Burnham HCACL DAYS [id number] [facility] 11:00:00 Khalif 80 [facility] 2020-02-04 Inpatient [facility] [id number] [facility] 05:53:00 72 2022-08-08 2022-08-08 [facility] [id number] Univers 00:00:00 00:00:00 [facility] [id number] it y of Vikas ARIZMENDI [id number] José Manuel as GALEN?BLEA [id number] [address] MEDICAL OFFICE [facility] 2022-05-06 2022-05-06 [facility] [id number] Univers 13:30:00 13:30:00 [facility] 2022-03-19 2022-03-19 [facility] [id number] Univers 14:00:00 14:00:00 [facility] 2022-03-16 2022-03-16 [facility] [id number] Univers 15:30:00 15:30:00 [facility] 2022-02-24 2022-02-25 Inpatient BULLOCK, FB SETH [id number] MHFB 11:38:00 15:25:00 HOODND 2021-12-17 2021-12-17 [facility] [id number] Univers 13:00:00 13:26:08 [facility] 2021-12-17 2021-12-17 Office [facility] [id number] Univers 13:00:00 13:26:08 Visit [facility] [id number] it y of Viaks [place] 4.2.7.2.686 José Manuel as GALEN?BLEA [id number] [address] OFF[address] [facility] 2021-12-09 2021-12-09 [facility] [id number] Univers 00:00:00 00:00:00 Noman [facility] [id number] it y of Edward [place] [id number] José Manuel as GALEN?BLEA [id number] [address] 2021-11-12 2021-11-12 Office [facility] 1.2.840.114 [id number] Univers 16:15:00 16:30:00 Visit [facility] [id number] it y of [place] 4.2.7.2.686 José Manuel as GALEN?BLEA [id number] [address] 2021-11-12 2021-11-12 Outpatient [facility] [id number] Univers 16:15:00 16:15:00 [facility] 2021-11-12 2021-11-12 Outpatient [facility] [id number] Univers 16:15:00 16:15:00 [facility] 2021-11-11 2021-11-11 Outpatient [facility] [id number] Univers 09:15:00 09:15:00 [facility] 2021-11-01 2021-11-01 [facility] 1.2.840.114 [id number] Univers 00:00:00 00:00:00 [facility] [id number] it y of [place] 4.2.7.2.686 José Manuel as GALEN?BLEA [id number] [address] 2021-10-10 2021-10-10 [employer] [facility], [facility] 1.2.840.1 [id number] Univers 10:00:00 10:15:00 Visit Noman Champion [facility] [id number] .10 ity of [place] 4.2.7.2.686 José Manuel as GALEN?BLEA [id number] [address] OFF[address] [facility] 2021-10-10 2021-10-10 Office Izzyjuan manueljuan a [facility] 1.2.840.114 [id number] Univers 09:30:00 10:00:00 Visit [facility] [id number] it y of Vikas ARIZMEND[place] 4.2.7.2.686 José Manuel as GALEN?BLEA [phone] Ok dical [facility] 044 [facility] 2021-10-10 2021-10-10 Outpatient R AKIRA [facility] [id number] Univers 09:30:00 09:55:10 NOMAN kiley [facility] 2021-10-10 2021-10-10 Outpatient R AKIRA [facility] [id number] Univers 09:30:00 09:30:00 NOMAN [facility] [place] [facility] 2021-10-03 2021-10-03 Pre Visit ENRIQUE Larkin [id number] Univers 00:00:00 00:00:00 Outreach Phuong MORRISON [id number] ity of [place].686 [place] [id number] [facility] [place] 086 [place] 2021-07-21 2021-07-21 [employer] 2, Adc Lab [facility] 1.2.840.114 [id number] Univers 16:15:00 16:30:00 Visit Petrona Perez [id number] ity of [place].2.686 [place] [id number] Ok jaycee NAL 353 [facility] 2021-07-21 2021-07-21 Outpatient R PETRONA PEREZ [facility] [id number] Univers 16:15:00 16:15:00 ity of [facility] 2021-07-21 2021-07-21 Office Petrona Perez [facility] [id number] Univers 15:30:00 16:04:18 Visit Earnest ARIZMENDI [id number] i ty of [place] [id number] Ok dical NAL 134 [facility] 2021-07-21 2021-07-21 Outpatient R PETRONA PEREZ [facility] [id number] Univers 15:30:00 16:04:18 ity of [facility] 2021-07-21 2021-07-21 Orders Doctor ONEILL 1.2.840.114 [id number] Univers 00:00:00 00:00:00 Only Unassigned, NICK [id number] ity of [place] [facility] 4.2.7.2.686 José Manuel as [id number] [address] 2021-07-04 2021-07-04 Outpatient R AKIRA, [facility] [id number] Univers 13:30:00 13:30:00 NOMAN ity [facility] 2021-04-17 2021-04-17 Letter NINO Caicedo 1.2.840.114 [id number] Univers 00:00:00 00:00:00 (Out) Nataliya Drea ROMERO [id number] it y of [facility] 4.2.7.2.686 José Manuel as [id number] [address] 2021-04-16 2021-04-16 [facility] [id number] Univers 19:20:00 19:38:01 REBECCA santana o f [facility] 2021-04-16 2021-04-16 Urgent AnibalKarenRebeccaExcela [facility] 1.2.840. 114 [id number] Univers 19:20:00 19:38:01 [facility] [id number] ity of [place] 4.2.7.2.686 José Manuel as GALEN?BLEA [id number] [address] MEDICAL OFFICE BUILDING 2021-02-14 2021-02-14 Outpatient JOLANTA BURNHAMSE [facility]SE [id number] 12:55:00 21:50:[address] [facility] 2020-06-17 2020-06-17 Telephone de [facility] 1.2.840.114 [id number] 00:00:00 00:00:00 Jarod Raymundo [id number] [facility] Pediatric 4.2.7.2.686 [facility] [id number] 225 2020-06-17 2020-06-17 Telephone de [facility] Castillo 1.2.840.114 [id number] Univers 00:00:00 00:00:00 Jarod Raymundo [id number] ity of [place] [facility] [place].7.2.686 [facility] [id number] [address] 2020-05-28 2020-05-28 [facility] 1.2.840.114 [id number] 00:00:00 00:00:00 Outreach Kai PRIMARY [id number] [place] CARE 4.2.7.2.686 PAVILLION [id number] 2020-05-28 2020-05-28 [facility] 1.2.840.114 [id number] Univers 00:00:00 00:00:00 Outreach Kai PRIMARY [id number] i ty of Brent [facility] 4.2.7.2.686 [place] [id number] Ok dical [address] [place] [address] 2020-02-04 2020-02-04 Emergency [facility] [id number] [facility] 05:53:00 05:53:00 72 2019-12-02 2019-12-02 Laboratory Lab, [facility] 1.2.840.114 [id number] 14:31:28 14:51:28 Only Fam Pob I Health [id number] [place] 4.2.7.2.686 Professio [id number] nal [facility] Office Building One 2019-12-02 2019-12-02 Laboratory Lab, [facility] Fam Pob I [facility] 1.2. 840.114 [id number] Univers 14:31:28 14:51:28 Only Apple [facility] [id number] ity of [place] 4.2.7.2.686 José Manuel as Professio [phone] [facility] 044 [place] Office Building One 2019-12-02 2019-12-02 Outpatient R ALTAGRACIA [facility] [id number] Univers 14:20:00 14:20:00 APPLE ity of [facility] 2019-12-02 2019-12-02 Letter Doctor ONEILL 1.2.840.114 [id number] 00:00:00 00:00:00 (Out) Unassigned, NICK 350.1.13.10 [place] [facility] 4.2.7.2.686 [id number] 2019-12-02 2019-12-02 Letter Doctor NINO 1.2.840.114 [id number] Univers 00:00:00 00:00:00 (Out) Unassigned, NICK 350.1.13.10 ity of [place] [facility] 4.2.7.2.686 José Manuel as [id number] [address] 2019-11-21 2019-11-21 Outpatient R JAMATHE [facility] [id number] Univers 08:20:00 08:20:00 CAMILLA ity [facility] 2019-11-16 2019-11-16 Outpatient R JAMATHE [facility] [id number] Univers 14:00:00 14:00:00 CAMILLA ity [facility] 2019-11-03 2019-11-03 Office Gary Del Toro [facility] 1.2.840.114 [id number] 08:56:18 09:24:12 Visit Jarod 350.1.13.10 Pediatric 4.2.7.2.686 Clinic [id number] [facility] 2019-11-03 2019-11-03 Office Gary Del Toro [facility] Castillo 1.2.840.114 [id number] Univers 08:56:18 09:24:12 Visit Jarod 350.1.13.10 it y of [facility] 4.2.7.2.686 [facility] [id number] [facility] [place] 225 [place] 2019-11-03 2019-11-03 Outpatient R GARY DEL TORO [facility] [id number] [facility] 09:00:00 09:00:00 ity of [facility] 2019-11-03 2019-11-03 Orders Doctor NINO 1.2.840.114 [id number] Univers 00:00:00 00:00:00 Only Unassigned, NICK 350.1.13.10 ity of [place] [facility] 4.2.7.2.686 José Manuel as [id number] [facility] [place] 009 [place] 2019-09-29 2019-09-29 Outpatient R JAMATHE [facility] [id number] Univers 10:00:00 10:00:00 CAMILLA esther [facility] 2019-08-03 2019-08-03 Outpatient R [facility] [id number] Univers 15:40:00 15:40:00 ity of [facility] 2019-05-29 2019-05-29 Telephone [facility] 1.2.840.11 [id number] Univers 00:00:00 00:00:00 , Margo Olivera 350.1.13.10 it y of Pediatric 4.2.7.2.686 [facility] [id number] [address] 2019-04-25 2019-04-25 Outpatient [facility] [id number] Univers 08:10:00 08:53:36 , MARGO santana [facility] 2019-04-25 2019-04-25 Office [facility] 1.2.840.114 [id number] Univers 08:05:29 08:53:36 Visit , Margo Olivera 350.1.13.10 it y of Pediatric 4.2.7.2.686 [facility] [id number] [address] 2019-03-28 2019-03-28 Telephone Gary Del Toro [facility] 1.2.840.114 [id number] Univers 00:00:00 00:00:00 Jarod 350.1.13.10 it y of Pediatric 4.2.7.2.686 [facility] [id number] [address] 2018-11-24 2018-11-24 Orders Doctor NINO 1.2.840.114 [id number] Univers 00:00:00 00:00:00 Only UnassignedNICK 350.1.13.10 ity of [place] [facility] 4.2.7.2.686 José Manuel as [id number] [place] [address] Branch 2018-11-15 2018-11-15 Telephone [facility] 1.2.840.11 [id number] Univers 00:00:00 00:00:00 Monica Ervin 350.1.13.10 ity of Pediatric 4.2.7.2.686 [facility] [phone] [address] Results Test Description Test Time Test [...] code = NRBCP) 0 % Comprehensive Metabolic [id number] 06:35:00 Test Item Value Reference Range Interpretation [...] 57 U/L 46-116 N = ALP) Ethanol [id number] 06:35:00 Test Item Value Reference Range Interpretation Comments Ethanol (test code = ETOH) < 3 mg/dL UA, Urinalysis Rflx Cult/[id number] 06:35:00 Test Item Value Reference Range Interpretation Comments Color,Urine (test code Yellow Yellow = UCOL) Clarity,Urine (test Clear Clear code = UCLAR) PH,Urine (test code = 7.0 5.5-8.5 UPH.XX) Specific Napoleon,Urine 1.020 1.005-1.030 N (test code = USG) [...] A Esterase,Urine (test code = ULEU) Urine [id number] 06:35:00 Test Item Value Reference Range Interpretation [...] (test code = HCGU) Positive Negative Drug Screen,[id number] 06:34:00 Test Item Value Reference Range Interpretation [...]
[2022-09-15 10:13] LABS: Hematocrit 39.7 % (36.0-45.0); Lymphocytes % 24.3 % (15.3-44.8); MCV 78.1 fL (80-100); MPV 10.3 fL (7.6-11.3); RBC Red Blood Cell Count 5.08 M/uL (3.86-4.86)
[2022-09-15 10:23] LABS: Potassium 4.2 mEq/L (3.5-5.1)
[2022-09-15 10:23] LABS: Specific Gravity 1.021 (1.005-1.030)
[2022-09-15 10:25] LABS: Specific Gravity 1.021 (1.005-1.030); Urine Bacteria <20 /HPF (<20); Urine Bilirubin NEGATIVE (Negative); Urine Blood 3+ (OVER) (Negative); Urine Clarity Extremely Turbid (Clear); Urine Color Brown (Yellow); Urine Glucose NEGATIVE (Negative); Urine Mucus Slight /HPF (None Seen); Urine Protein 1+ (Negative); Urine RBC >50 /HPF (None Seen); Urine Urobilinogen Normal (Normal); Urine pH 5.5 (5.0-7.0)
--- NOTE | 2022-09-15 12:16 | RAD REPORT ---
EXAM DESCRIPTION: US - Transvaginal OB - 09/15/2022 11:17 am CLINICAL HISTORY: Abd cramping, ;Vaginal bleeding COMPARISON: OB Complete dated 06/19/2020 FINDINGS: Normal size uterus. Endometrium measures up to 6 mm. No IUP is seen. The maternal adnexa and ovaries are within normal limits. Normal Doppler blood flow was demonstrated to both ovaries. IMPRESSION: There is no evidence of IUP seen. In the setting of a positive HCG level, this would ind icate of unknown location. Follow-up serial HCG levels and pelvic sonogram in 10-12 days wo uld be advised.
--- NOTE | 2022-09-15 12:28 | ER ---
Nurse's Notes [facility] Name: Milvia Murdock Age: 22 yrs Sex: Female : 2000 Arrival Date: 09/15/2022 Time: 09:30 Bed 17 Private MD: Diagnosis: Incomplete spontaneous without complication Presentation: 09/15 09:33 Chief complaint: Patient states: she started having vaginal bleeding with abdominal ap3 cramping this morning. patient states she is approx 6 weeks with her LMP 08/07/22. Coronavirus screen: At this time, the client does not indicate any symptoms associated with coronavirus-19. Ebola Screen: No symptoms or risks identified at this time. Initial Sepsis Screen: Does the patient meet any 2 criteria? No. Patient's initial sepsis screen is negative. Does the patient have a suspected source of infection? No. Patient's initial sepsis screen is negative. Risk Assessment: Do you want to hurt yourself or someone else? Patient reports no desire to harm self or others. Onset of symptoms was September 15, 2022. 09:33 Method Of Arrival: Ambulatory ap3 09:33 Acuity: KULDEEP 3 ap3 Triage Assessment: 09:35 General: Appears in no apparent distress. Behavior is calm, cooperative. Pain: ap3 Complains of pain in abdomen Pain currently is 4 out of 10 on a pain scale. Pain began this morning. Neuro: Level of Consciousness is awake, alert, obeys commands, Oriented to person, place, time, situation. Cardiovascular: Patient's skin is warm and dry. Respiratory: Airway is patent Respiratory effort is even, unlabored, Respiratory pattern is regular, symmetrical. : Reports vaginal bleeding that is bright red, with clots. 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 - Social history:: Smoking status: Patient denies any tobacco usage or history of. Screenin:36 [facility] ED Fall Risk Assessment (Adult) History of falling in the last 3 months, ap3 including since admission No falls in past 3 months (0 pts). Abuse screen: Denies threats or abuse. Nutritional screening: No deficits noted. Tuberculosis screening: No symptoms or risk factors identified. Assessment: 10:01 Obstetrical Assessment: Vaginal bleeding. General: Appears in no apparent distress. ld1 comfortable, Behavior is calm, cooperative, appropriate for age. Pain: Denies pain. Neuro: Level of Consciousness is awake, alert, obeys commands, Oriented to person, place, time, situation. Cardiovascular: Capillary refill < 3 seconds Patient's skin is warm and dry. Respiratory: Airway is patent Respiratory effort is even, unlabored. GI: Abdomen is round non-distended. : Reports vaginal bleeding that is bright red. EENT: No signs and/or symptoms were reported regarding the EENT system. Derm: No signs and/or symptoms reported regarding the dermatologic system. Musculoskeletal: No signs and/or symptoms reported regarding the musculoskeletal system. 11:41 Reassessment: Patient appears in no apparent distress at this time. No changes from ld1 previously documented assessment. Patient and/or family updated on plan of care and expected duration. Pain level reassessed. Patient is alert, oriented x 3, equal unlabored respirations, skin warm/dry/pink. Vital Signs: 09:33 BP 112 / 77; Pulse 55; Resp 17; Temp 97.7; Pulse Ox 100% ; Weight 87.09 kg; Height 5 ap3 ft. 7 in. ; Pain 4/10; 11:22 BP 115 / 85; Pulse 52; Resp 18; Pulse Ox 98% on R/A; ld1 11:41 BP 110 / 62; Pulse 47; Resp 18; Pulse Ox 100% on R/A; ld1 12:57 BP 101 / 72; Pulse 52; Resp 18; Pulse Ox 100% on R/A; ld1 09:33 Body Mass Index 30.07 (87.09 kg, 170.18 cm) ap3 09:33 Pain Scale: Adult ap3 ED Course: 09:31 Patient arrived in ED. rg4 09:32 Jeniffer Byers FNP-C [facility] snw 09:32 Banerjee, Donny, DO is Attending Physician. snw 09:35 Triage completed. ap3 09:37 Arm band placed on right wrist. ap3 09:53 Inserted saline lock: 20 gauge in left antecubital area, using aseptic technique. Blood rs5 collected. 09:53 Abo/rh Typing Sent. rs5 09:53 Basic Metabolic Panel Sent. rs5 09:53 CBC with Diff Sent. rs5 09:59 Urinalysis w/ reflexes Sent. rs5 09:59 Quantitative Hcg Sent. rs5 09:59 Test, Urine Sent. rs5 10:01 Lisa Banerjee, RN is Primary Nurse. ld1 10:01 Patient has correct armband on for positive identification. Placed in gown. Bed in low ld1 position. Call light in reach. Side rails up X2. hall monitor on. Pulse ox on. NIBP on. Door closed. Noise minimized. Warm blanket given. 10:01 No provider procedures requiring assistance completed. ld1 10:04 Urinalysis w/ reflexes Sent. ld1 10:04 Quantitative Hcg Sent. ld1 10:04 CBC with Diff Sent. ld1 10:04 Basic Metabolic Panel Sent. ld1 10:04 Abo/rh Typing Sent. ld1 10:07 PREGU Sent. ld1 11:15 US Transvaginal Ob In Process Unspecified. EDMS 12:57 IV discontinued, intact, bleeding controlled, No redness/swelling at site. ld1 Administered Medications: No medications were administered Medication: 10:01 VIS not applicable for this client. ld1 Outcome: 12:28 Discharge ordered by MD. snw 12:57 Discharged to home ambulatory, with family. ld1 12:57 Condition: stable 12:57 Discharge instructions given to patient, family, Instructed on discharge instructions, follow up and referral plans. Demonstrated understanding of instructions, follow-up care. 12:57 Patient left the ED. ld1 Signatures: Dispatcher [employer] EDMS Jeniffer Byers FNP-C FIRE FIGHTER-Suzy Nuñez rg4 Lucretia Acosta RN RN ap3 Lisa Banerjee, RN RN ld1 Randell Recinos rs5
--- NOTE | 2022-09-15 12:28 | EDPHYS ---
Physician Documentation [facility] Name: Milvia Murdock Age: 22 yrs Sex: Female : 2000 Arrival Date: 09/15/2022 Time: 09:30 Bed 17 Private MD: ED Physician Donny Banerjee HPI: 09/15 09:53 This 22 yrs old Female presents to ER via Ambulatory with complaints of snw Vaginal Bleeding, + Preg <12wks, Abdominal Cramping. 09:53 The patient presents with vaginal bleeding that is light, with clots, + preg, [facility] snw labs for Quant done yesterday.. Onset: The symptoms/episode began/occurred suddenly, this morning. Associated signs and symptoms: Pertinent positives: cramping. Severity of symptoms: At their worst the symptoms were moderate. 09:55 The patient has not experienced similar symptoms in the past. 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 - Social history:: Smoking status: Patient denies any tobacco usage or history of. ROS: 09:55 Constitutional: Negative for fever, chills, and weight loss, Eyes: Negative for injury, snw pain, redness, and discharge, ENT: Negative for injury, pain, and discharge, Neck: Negative for injury, pain, and swelling, Cardiovascular: Negative for chest pain, palpitations, and edema, Respiratory: Negative for shortness of breath, cough, wheezing, and pleuritic chest pain, Abdomen/GI: Negative for abdominal pain, nausea, vomiting, diarrhea, and constipation, Back: Negative for injury and pain, MS/Extremity: Negative for injury and deformity. 09:55 Neuro: Negative for headache, weakness, numbness, tingling, and seizure. 09:55 : Positive for vaginal bleeding. 09:55 Skin: Positive for eczema. Exam: 09:56 Constitutional: This is a well developed, well nourished patient who is awake, alert, snw and in no acute distress. Head/Face: Normocephalic, atraumatic. Eyes: Pupils equal round and reactive to light, extra-ocular motions intact. Lids and lashes normal. Conjunctiva and sclera are non-icteric and not injected. Cornea within normal limits. Periorbital areas with no swelling, redness, or edema. Cardiovascular: Regular rate and rhythm with a normal S1 and S2. No gallops, murmurs, or rubs. Normal PMI, no JVD. No pulse deficits. Respiratory: Lungs have equal breath sounds bilaterally, clear to auscultation and percussion. No rales, rhonchi or wheezes noted. No increased work of breathing, no retractions or nasal flaring. Abdomen/GI: Soft, non-tender, with normal bowel sounds. No distension or tympany. No guarding or rebound. No evidence of tenderness throughout. Back: No spinal tenderness. No costovertebral tenderness. Full range of motion. MS/ Extremity: Pulses equal, no cyanosis. Neurovascular intact. Full, normal range of motion. Neuro: Awake and alert, GCS 15, oriented to person, place, time, and situation. Cranial nerves II-XII grossly intact. Motor strength 5/5 in all extremities. Sensory grossly intact. Cerebellar exam normal. Normal gait. 09:56 Skin: Appearance: normal except for affected area, eczema. Vital Signs: 09:33 BP 112 / 77; Pulse 55; Resp 17; Temp 97.7; Pulse Ox 100% ; Weight 87.09 kg; Height 5 ap3 ft. 7 in. ; Pain 4/10; 11:22 BP 115 / 85; Pulse 52; Resp 18; Pulse Ox 98% on R/A; ld1 11:41 BP 110 / 62; Pulse 47; Resp 18; Pulse Ox 100% on R/A; ld1 12:57 BP 101 / 72; Pulse 52; Resp 18; Pulse Ox 100% on R/A; ld1 09:33 Body Mass Index 30.07 (87.09 kg, 170.18 cm) ap3 09:33 Pain Scale: Adult ap3 MDM: 09:42 Patient medically screened. snw 09:56 Differential diagnosis: nonspecific abdominal pain, postcoital bleeding. Data reviewed: snw vital signs, nurses notes. 12:17 Counseling: I had a detailed discussion with the patient and/or guardian regarding: the snw historical points, exam findings, and any diagnostic results supporting the discharge/admit diagnosis, lab results, radiology results. ED course: LMP 08/07/22, quant today 41, concern for ectopic, pt describes pain of 2/10, cramping, dark clotted blood with urination or with standing. Attempted to contact private OB, Dr. Hathaway.. 12:26 ED course: Spoke with Dr. Ocampo. Quant HCG yesterday was 65, + miscarriage. Instructed snw to have pt f/u with her office and they will repeat quantitative. . 09/15 09:33 Order name: Abo/rh Typing; Complete Time: 11:10 snw 09/15 09:33 Order name: Basic Metabolic Panel; Complete Time: 10:28 snw 09/15 09:33 Order name: CBC with Diff; Complete Time: 10:16 snw 09/15 09:33 Order name: Quantitative Hcg; Complete Time: 10:28 snw 09/15 09:33 Order name: Urinalysis w/ reflexes; Complete Time: 10:35 snw 09/15 10:04 Order name: PREGU; Complete Time: 10:28 snw 09/15 10:38 Order name: Urine Culture EDMS 09/15 09:57 Order name: US Transvaginal Ob; Complete Time: 12:16 snw 09/15 09:33 Order name: IV Saline Lock; Complete Time: 09:53 snw 09/15 09:33 Order name: Labs collected and sent; Complete Time: 09:53 snw 09/15 09:33 Order name: NPO; Complete Time: 09:45 snw 09/15 12:17 Order name: Recheck VS; Complete Time: 12:57 snw Administered Medications: No medications were administered Disposition: 15:41 Co-signature as Attending Physician, Donny Banerjee DO I was immediately available on-site ms3 in the Emergency Department for consultation in the care of the patient. Disposition Summary: 09/15/22 12:28 Discharge Ordered Location: Home snw Condition: Stable snw Diagnosis - Incomplete spontaneous without complication snw Followup: snw - With: Emergency Department - When: As needed - Reason: Worsening of condition Followup: snw - With: Private Physician - When: 1 - 2 days - Reason: Recheck today's complaints, Continuance of care, Re-evaluation by your physician Discharge Instructions: - Discharge Summary Sheet snw - Miscarriage snw - Managing Loss snw Forms: - Medication Reconciliation Form snw - Thank You Letter snw - Antibiotic Education snw - Prescription Opioid Use snw - Patient Portal [email or web address] snw Signatures: Dispatcher [employer] EDJeniffer Tolliver, COMPLIANCE PARALEGAL-C COMPLIANCE PARALEGAL-Csnw Lucretia Acosta RN RN ap3 Donny Banerjee DO DO ms3
[2022-09-15 13:10] VITALS: TEMP 97.7; O2SAT 100
[2022-09-15 13:13] VITALS: BP 101/72
== END 2022-09-15 12:57 | disposition home or self-care (01) ==
LOC: ER 09:30
DX: O03.4 Incomplete spontaneous abortion without complication (principal); Z88.8 Allergy status to other drugs, medicaments and biological substances
CPT/HCPCS: 36415; 76817; 80048; 81001; 81025; 84702; 85025; 86900; 86901; 87086; 87088; 99284

== ENCOUNTER 2022-12-14 16:22 | Emergency (ER) | payer BC, OTHER ==
--- OUTSIDE RECORDS SUMMARY | 2022-12-14 16:27 | XMS REPORT | Continuity of Care Document ---
:2000 Author Organization [facility] t Address [address] [facility] [place] [address] Care Team Providers Name Role Phone NOMAN CHAMPION Primary Care Physician Unavailable Khalif Burnham Attending Clinician Unavailable PETRONA PEREZ Attending Clinician Unavailable MELODY CROWE Attending Clinician Unavailable Melody Crowe MD Attending Clinician Unknown, Attending Attending Clinician Unavailable JOANNA ANTHONY Attending Clinician Unavailable Joanna Anthony PA-C Attending Clinician Doctor Unassigned, [place] Attending Clinician Unavailable Noman Champion MD Attending Clinician NOMAN CHAMPION Attending Clinician Unavailable TRENTON BULLOCK Attending Clinician Unavailable Lab, Ang - Db Attending Clinician Unavailable Phuong Larkin MA Attending Clinician Unavailable 2, Adc Lab Attending Clinician Unavailable Everette MART, Petrona Tinoco Attending Clinician Marifer RUBIO, Nataliya Shepard Attending Clinician Unavailable REBECCA BARNETT Attending Clinician Unavailable Anibal SOCIAL STUDIES TEACHER, Rebecca Attending Clinician KHALIF BURNHAM Attending Clinician Unavailable [...] Policy Number Effective Date Expiration Date S laura [facility] - [id number] 2016 OUT OF STATE 00:00:00 [place] [facility] [id number] 2022 00:00:00 [place] [id number] 2021 2022 00:00:00 00:00:00 Problems Condition Condition Condition Status Onset Resolution Last Treating Co mments Source Name Details Category Date Date Treatment Clinician Date Other 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 disorder 00:00: [place] [...] DA Active U Rash 2019-03 SJMCm ne 1 00:00: 00 Fluoxeti Propensi Active Rash Univer s ne Hcl ty to 09-27 ity of adverse 00:00: [place] reaction 00 Medical s Branch FLUOXETI DRUG Active Hives Univers NE HCL INGREDI 09-27 ity of 00:00: [place] 00 Medical Branch Social History Social Habit Start Date Stop Date Quantity Comments Source History SDOH University o f Alcohol Frequency [facility] edical Branch History SDOH University o f Alcohol Std Drinks [place] [facility] History [facility] University o f Alcohol Binge [place] [facility] Branch History of tobacco Passive smoker Un iversity of use [facility] Gender identity Universit y of [facility] Sexual orientation Univer sity of [facility] Alcohol intake 2022-12-09 2022-12-09 Current drinker Unive rsity of 00:00:00 00:00:00 of alcohol [facility] (finding) Branch Exposure to 2021-12-07 2021-12-17 Not sure University of SARS-CoV-2 (event) 00:00:00 13:03:[address] [facility] History of Social 2021-10-10 2021-10-10 Univers ity of function 00:00:00 00:00:[address] [facility] Tobacco use and 2021-10-10 2021-10-10 Smokeless tobacco Un iversity of exposure 00:00:00 00:00:00 non-user [facility] Alcohol Comment 2021-07-21 2021-07-21 ocassional Universit y of 00:00:00 00:00:[address] [facility] Sex Assigned At 2000 2001 Universit y of 00:00:00 00:00:[address] [facility] Smoking Status Start Date Stop Date Source Never smoked tobacco [facility] Medications Ordered Filled Start Stop Current Ordering Indication Dosage Frequency Signature Comments Components Source Medication Medication Date Date Medication? Clinician (SIG) Name Name ondansetron 2022-03 Yes [id number] 4mg Take 1 Univers 4 mg 0-04 tablet by ity of disintegrat 00:00: mouth [place] [facility] tablet 00 every 12 Medic al (twelve) Branch hours as needed for Nausea and Vomiting (N/V). SERTRALINE 2021-03 Yes [id number] 75mg TAKE 1.5 Univers 50 mg 0-04 TABLETS BY ity of tablet 00:00: MOUTH IN [place] THE Medical MORNING. [place] SERTRALINE 2021-03 Yes [id number] 75mg TAKE 1.5 Univers 50 mg 0-04 TABLETS BY ity of tablet 00:00: MOUTH IN [place] THE Medical MORNING. [place] SERTRALINE 2021-03 Yes [id number] 75mg TAKE 1.5 Univers 50 mg 0-04 TABLETS BY ity of tablet 00:00: MOUTH IN [place] THE Medical MORNING. [place] SERTRALINE 2021-03 Yes [id number] 75mg TAKE 1.5 Univers 50 mg 0-04 TABLETS BY ity of tablet 00:00: MOUTH IN [place] THE Medical MORNING. [place] SERTRALINE 2021-03 Yes [id number] 75mg TAKE 1.5 Univers 50 mg 0-04 TABLETS BY ity of tablet 00:00: MOUTH IN [place] THE Medical MORNING. [place] SERTRALINE 2021-03 Yes [id number] 75mg TAKE 1.5 Univers 50 mg 0-04 TABLETS BY ity of tablet 00:00: MOUTH IN [place] THE Medical MORNING. [place] SERTRALINE 2021-03 Yes [id number] 75mg TAKE 1.5 Univers 50 mg 0-04 TABLETS BY ity of tablet 00:00: MOUTH IN [place] THE Medical MORNING. Branch SERTraline Yes [id number] 75mg Take 1.5 Univers 50 mg 9-07 tablets by ity of tablet 00:00: mouth in [place] the Medical morning. [place] pantoprazol Yes [id number] 40mg Take 1 Univers e 40 mg EC 9-07 tablet by ity of tablet 00:00: mouth in [place] 00 the Medical morning. Branch SERTraline 2021-0 Yes [id number] 75mg Take 1.5 Univers 50 mg 9-07 tablets by ity of tablet 00:00: mouth in [place] 00 the Medical morning. Branch pantoprazol 2021-0 Yes [id number] 40mg Take 1 Univers e 40 mg EC 9-07 tablet by ity of tablet 00:00: mouth in [place] 00 the Medical morning. Branch pantoprazol 2021-0 Yes [id number] 40mg Take 1 Univers e 40 mg EC 9-07 tablet by ity of tablet 00:00: mouth in [place] 00 the Medical morning. Branch pantoprazol 2021-0 Yes [id number] 40mg Take 1 Univers e 40 mg EC 9-07 tablet by ity of tablet 00:00: mouth in [place] 00 the Medical morning. Branch pantoprazol 2021-0 Yes [id number] 40mg Take 1 Univers e 40 mg EC 9-07 tablet by ity of tablet 00:00: mouth in [place] 00 the Medical morning. Branch pantoprazol 2021-0 Yes [id number] 40mg Take 1 Univers e 40 mg EC 9-07 tablet by ity of tablet 00:00: mouth in [place] 00 the Medical morning. Branch pantoprazol 2021-0 Yes [id number] 40mg Take 1 Univers e 40 mg EC 9-07 tablet by ity of tablet 00:00: mouth in [place] 00 the Medical morning. Branch pantoprazol 2021-0 Yes [id number] 40mg Take 1 Univers e 40 mg EC 9-07 tablet by ity of tablet 00:00: mouth in [place] 00 the Medical morning. Branch pantoprazol 2021-0 Yes [id number] 40mg Take 1 Univers e 40 mg EC 9-07 tablet by ity of tablet 00:00: mouth in [place] 00 the Medical morning. Branch SERTraline 2021-0 2021- No [id number] 75mg Take 1.5 Univers 50 mg 9-07 10-04 tablets by ity of tablet 00:00: 00:00 mouth in [place] 00 :00 the Medical morning. Branch SERTRALINE 2021-0 Yes [id number] TAKE 1 U nivers 50 mg 8-29 TABLET BY ity of tablet 00:00: MOUTH [place] 00 EVERY DAY Medical IN THE Branch MORNING SERTRALINE 2021-0 Yes [id number] TAKE 1 U nivers 50 mg 8-29 TABLET BY ity of tablet 00:00: MOUTH [place] 00 EVERY DAY Medical IN THE Branch MORNING SERTRALINE 2021-0 2021- No [id number] TAKE 1 Univers 50 mg 8-29 10-04 TABLET BY ity of tablet 00:00: 00:00 MOUTH [place] 00 :00 EVERY DAY Medical IN THE [place] MORNING Immunizations Ordered Filled Date Status Comments Source Immunization Name Immunization Name Influenza Virus 2021-12-17 Completed Universit y of Vaccine Quad IM, 00:00:00 [place] Me dical Preserv and ABX Branch Free 6 MO-64 YRS Influenza Virus 2021-12-17 Completed Universit y of Vaccine Quad IM, 00:00:00 [place] Me dical Preserv and ABX Branch Free 6 MO-64 YRS Influenza Virus 2021-12-17 Completed Universit y of Vaccine Quad IM, 00:00:00 [place] Me dical Preserv and ABX Branch Free 6 MO-64 YRS Influenza Virus 2021-12-17 Completed Universit y of Vaccine Quad IM, 00:00:00 [place] Me dical Preserv and ABX Branch Free 6 MO-64 YRS Influenza Virus 2021-12-17 Completed Universit y of Vaccine Quad IM, 00:00:00 [place] Me dical Preserv and ABX Branch Free 6 MO-64 YRS SARS-COV-2 COVID-19 2020-07-31 Completed Unive rsity of MODERNA 12+ YRS 00:00:00 [facility] ical VACCINE Branch SARS-COV-2 COVID-19 2020-07-31 Completed Unive rsity of MODERNA 12+ YRS 00:00:00 [facility] ical VACCINE Branch SARS-COV-2 COVID-19 2020-07-31 Completed Unive rsity of MODERNA 12+ YRS 00:00:00 [facility] ical VACCINE Branch SARS-COV-2 COVID-19 2020-07-31 Completed Unive rsity of MODERNA 12+ YRS 00:00:00 [facility] ical VACCINE Branch SARS-COV-2 COVID-19 2020-07-31 Completed Unive rsity of MODERNA 12+ YRS 00:00:00 [facility] ical VACCINE Branch SARS-COV-2 COVID-19 2020-07-31 Completed Unive rsity of MODERNA 12+ YRS 00:00:00 [facility] ical VACCINE Branch SARS-COV-2 COVID-19 2020-07-31 Completed Unive rsity of MODERNA 12+ YRS 00:00:00 [place] [facility] ical VACCINE Branch SARS-COV-2 COVID-19 2020-07-31 Completed Unive rsity of MODERNA 12+ YRS 00:00:00 [facility] ical VACCINE Branch SARS-COV-2 COVID-19 2020-07-04 Completed Unive rsity of MODERNA 12+ YRS 00:00:00 [facility] ical VACCINE Branch SARS-COV-2 COVID-19 2020-07-04 Completed Unive rsity of MODERNA 12+ YRS 00:00:00 [facility] ical VACCINE Branch SARS-COV-2 COVID-19 2020-07-04 Completed Unive rsity of MODERNA 12+ YRS 00:00:00 [facility] ical VACCINE Branch SARS-COV-2 COVID-19 2020-07-04 Completed Unive rsity of MODERNA 12+ YRS 00:00:00 [facility] ical VACCINE Branch SARS-COV-2 COVID-19 2020-07-04 Completed Unive rsity of MODERNA 12+ YRS 00:00:00 [facility] ical VACCINE Branch SARS-COV-2 COVID-19 2020-07-04 Completed Unive rsity of MODERNA 12+ YRS 00:00:00 [facility] ical VACCINE Branch SARS-COV-2 COVID-19 2020-07-04 Completed Unive rsity of MODERNA 12+ YRS 00:00:00 [facility] VACCINE Branch SARS-COV-2 COVID-19 2020-07-04 Completed Unive rsity of MODERNA 12+ YRS 00:00:00 [facility] VACCINE Branch TDAP 2019-01-08 Completed University of 00:00:[address] [facility] Influenza Virus 2019-01-08 Completed Universit y of Vaccine Quad .5 mL 00:00:00 [facility] IM 6+ MO Branch TDAP 2019-01-08 Completed University of 00:00:[address] [facility] Influenza Virus 2019-01-08 Completed Universit y of Vaccine Quad .5 mL 00:00:00 [place] [facility] IM 6+ MO Branch TDAP 2019-01-08 Completed University of 00:00:[address] [facility] Influenza Virus 2019-01-08 Completed Universit y of Vaccine Quad .5 mL 00:00:00 [place] [facility] IM 6+ MO Branch TDAP 2019-01-08 Completed University of 00:00:[address] [facility] Influenza Virus 2019-01-08 Completed Universit y of Vaccine Quad .5 mL 00:00:00 [place] [facility] IM 6+ MO Branch TDAP 2019-01-08 Completed University of 00:00:[address] [facility] Influenza Virus 2019-01-08 Completed Universit y of Vaccine Quad .5 mL 00:00:00 [place] [facility] IM 6+ MO Branch TDAP 2019-01-08 Completed University of 00:00:[address] [facility] Influenza Virus 2019-01-08 Completed Universit y of Vaccine Quad .5 mL 00:00:00 [place] [facility] IM 6+ MO Branch TDAP 2019-01-08 Completed University of 00:00:[address] [facility] Influenza Virus 2019-01-08 Completed Universit y of Vaccine Quad .5 mL 00:00:00 [place] [facility] IM 6+ MO Branch TDAP 2019-01-08 Completed University of 00:00:[address] [facility] Influenza Virus 2019-01-08 Completed Universit y of Vaccine Quad .5 mL 00:00:00 [facility] 6+ MO Branch HPV9 2015-10-03 Completed University of 00:00:00 [facility] Branch HPV9 2015-10-03 Completed University of 00:00:00 [place] [facility] HPV9 2015-10-03 Completed University of 00:00:00 [place] [facility] HPV9 2015-10-03 Completed University of 00:00:00 [facility] Branch HPV9 2015-10-03 Completed University of 00:00:00 [place] [facility] HPV9 2015-10-03 Completed University of 00:00:00 [place] [facility] HPV9 2015-10-03 Completed University of 00:00:00 [place] [facility] HPV9 2015-10-03 Completed University of 00:00:00 [facility] Branch HPV9 2014-10-16 Completed University of 00:00:00 [facility] Branch HPV9 2014-10-16 Completed University of 00:00:00 [place] [facility] HPV9 2014-10-16 Completed University of 00:00:00 [facility] Branch HPV9 2014-10-16 Completed University of 00:00:00 [place] [facility] HPV9 2014-10-16 Completed University of 00:00:00 [place] [facility] HPV9 2014-10-16 Completed University of 00:00:[address] [facility] HPV9 2014-10-16 Completed University 00:00:[address] [facility] HPV9 2014-10-16 Completed University 00:00:[address] [facility] HPV9 Unknown Completed [facility] HPV9 Unknown Completed [facility] TDAP Unknown Completed [facility] Influenza Virus Unknown Completed Universit y of Vaccine Quad .5 mL [place] [facility] IM 6+ MO Branch (FLUZONE/FLULAVAL/F LUARIX) SARS-COV-2 COVID-19 Unknown Completed Unive rsity of MODERNA 12+ YRS [place] [facility] ical VACCINE Branch SARS-COV-2 COVID-19 Unknown Completed Unive rsity of MODERNA 12+ YRS [facility] ical VACCINE Branch Influenza Virus Unknown Completed Universit y of Vaccine Quad IM, [place] La dical Preserv and ABX Branch Free 6 MO-64 YRS (FLUCELVAX) Vital Signs Vital Name Observation Time Observation Value Comments Source Systolic blood 2022-12-09 21:24:00 99 mm[Hg] Univer sity of pressure [facility] Diastolic blood 2022-12-09 21:24:00 72 mm[Hg] Unive rsity of pressure [facility] Heart rate 2022-12-09 21:24:00 66 /min [facility] Body temperature 2022-12-09 21:24:00 36.89 [facility]unice [facility] Res[facility] rate 2022-12-09 21:24:00 20 /min [facility] Body height 2022-12-09 21:24:00 170.2 cm [facility] Oxygen saturation in 2022-12-09 21:24:00 100 /min [facility] Arterial blood by [facility] Pulse oximetry Branch Systolic blood 2022-10-29 17:33:00 102 mm[Hg] Univer sity of pressure [facility] Diastolic blood 2022-10-29 17:33:00 68 mm[Hg] Unive rsity of pressure [facility] Heart rate 2022-10-29 17:33:00 56 /min Universi [facility] Body temperature 2022-10-29 17:33:00 36.67 Eunice [facility] Respiratory rate 2022-10-29 17:33:00 18 /min [facility] Body weight 2022-10-29 17:33:00 85.095 kg Universi ty [facility] Oxygen saturation in 2022-10-29 17:33:00 98 /min [facility] Arterial blood by [facility] [place] [facility] Pulse oximetry Branch Systolic blood 2021-12-17 18:11:00 99 mm[Hg] Univer sity of pressure [facility] Diastolic blood 2021-12-17 18:11:00 62 mm[Hg] Unive rsity of [facility] Heart rate 2021-12-17 18:11:00 70 /min Universi ty of [facility] Body height 2021-12-17 18:11:00 167.6 cm Universi ty of [facility] Body weight 2021-12-17 18:11:00 107.049 kg Universi ty [facility] BMI 2021-12-17 18:11:00 38.09 kg/m2 Universi ty [facility] Systolic blood 2021-11-12 21:27:00 110 mm[Hg] Univer sity of [facility] Diastolic blood 2021-11-12 21:27:00 63 mm[Hg] Unive rsity of [facility] Heart rate 2021-11-12 21:27:00 89 /min Universi ty of [facility] Body height 2021-11-12 21:27:00 167.6 cm Universi ty of [facility] Body weight 2021-11-12 21:27:00 108.41 kg Universi ty [facility] BMI 2021-11-12 21:27:00 38.58 kg/m2 Universi ty [facility] Procedures Procedure Date / Time Performed Performing Clinician Sour e POCT SARS-COV-2 2022-10-29 18:01:00 [facility] o f [place] ANTIGEN (BINAX NOW) Medical Bran ch POCT MOLECULAR STREP 2022-10-29 17:47:00 Unknown, Attending [facility] POCT MOLECULAR FLU 2022-10-29 17:42:00 Unknown, Attending [facility] CONSENT/REFUSAL FOR 2022-10-29 17:26:54 Doctor Unassigned, No [facility] DIAGNOSIS AND Name Medical Branch TREATMENT ASSIGNMENT OF BENEFITS 2022-10-29 17:26:38 Doctor Unassigned, No University [facility] Name [facility] FLU VACC ([id number]), 2021-12-17 18:19:14 Noman Champion [facility] 6 MO-64 YRS, .5ML, IM, Medical B ranch QUAD (FLUCELVAX) Encounters Start End Encounter Admission Attending Care Care Encounter Source Date/Time Date/Time Type Type Clinicians Facility Department ID 2021-02-25 Inpatient JUAN MANUEL [place], DEVANCL DAYS [id number] [facility] 11:00:00 Khalif 80 [facility] 2020-02-04 Inpatient [facility] [id number] [facility] 05:53:00 72 2022-12-09 2022-12-09 Outpatient Idalia [facility] [id number] Univers 16:20:00 16:31:50 MELODY kiley [facility] 2022-12-09 2022-12-09 Urgent Melody Crowe [facility] [id number] Univers 16:20:00 16:31:50 Care Unknown, Attending HEALTH [id number] ity of [place] [id number] José Manuel as GALEN?BLEA [phone] [address] MEDICAL OFFICE BUILDING 2022-10-29 2022-10-29 Outpatient R RAJ [facility] [id number] Univers 12:40:00 13:04:46 JOANNA santana [facility] 2022-10-29 2022-10-29 Urgent Joanna Anthony [facility] [id number] Univers 12:40:00 13:04:46 Care Unknown, Attending HEALTH [id number] ity of [place] [id number] José Manuel as GALEN?BLEA [phone] [address] MEDICAL OFFICE BUILDING 2022-10-29 2022-10-29 Orders Doctor NINO [id number] Univers 00:00:00 00:00:00 Only Unassigned, NICK [id number] ity of [place] [facility] [id number] José Manuel as [phone] [address] 2022-08-08 2022-08-08 Telephone [facility] [id number] Univers 00:00:00 00:00:00 [facility] [id number] it y of [place] [id number] José Manuel as GALEN?BLEA [id number] [place] jaycee H[address] MEDICAL OFFICE [facility] 2022-05-06 2022-05-06 [facility] [id number] Univers 13:30:00 13:30:00 [facility] 2022-03-19 2022-03-[address] [facility] [id number] Univers 14:00:00 14:00:00 [facility] 2022-03-16 2022-03-16 Outpatient Idalia [facility] [id number] Univers 15:30:00 15:30:00 [facility] 2022-02-24 2022-02-25 Inpatient BULLOCK, [facility] SETH [id number] [facility] 11:38:00 15:25:00 SHEILENDRA 2021-12-17 2021-12-17 Outpatient Idalia [facility] [id number] Univers 13:00:00 13:26:08 [facility] 2021-12-17 2021-12-17 Office [facility] [id number] Univers 13:00:00 13:26:08 Visit [facility] [id number] it y of [place] [id number] José Manuel as GALEN?BLEA [id number] La jaycee HYDE [address] [place] [address] OFFICE [facility] 2021-12-09 2021-12-09 Refill [facility] [id number] Univers 00:00:00 00:00:00 [facility] [id number] it y of [place] [id number] José Manuel as GALEN?BLEA [phone] [place] jaycee [address] MEDICAL OFFICE [facility] 2021-11-12 2021-11-12 Office [facility] [id number] Univers 16:15:00 16:30:00 Visit [facility] [id number] it y of [place] [id number] José Manuel as GALEN?BLEA [id number] [facility] HALEY 044 [facility] OFFICE [facility] 2021-11-12 2021-11-12 [facility] [id number] Univers 16:15:00 16:15:[address] [facility] 2021-11-12 2021-11-12 [facility] [id number] Univers 16:15:00 16:15:00 [facility] 2021-11-11 2021-11-11 [facility] [id number] Univers 09:15:00 09:15:00 [facility] 2021-11-01 2021-11-01 Refill [facility] [id number] Univers 00:00:00 00:00:00 [facility] [id number] it y of [place] [id number] José Manuel as GALEN?BLEA [phone] [address] 2021-10-10 2021-10-10 Display Coordinator Lab, Ang - [facility] [id number] Univers 10:00:00 10:15:00 Visit Noman Champion [facility] [id number] .[id number] ity of [place] [id number] José Manuel as GALEN?BLEA [phone] La jaycee HYDE 353 [facility] 2021-10-10 2021-10-10 Office [facility] [id number] Univers 09:30:00 10:00:00 Visit [facility] [id number] it y of [place] [id number] José Manuel as GALEN?BLEA [id number] [address] 2021-10-10 2021-10-10 Outpatient R AKIRA, [facility] [id number] Univers 09:30:00 09:55:10 NOMAN kiley [facility] 2021-10-10 2021-10-10 Outpatient Idalia CHAMPION [facility] [id number] Univers 09:30:00 09:30:00 NOMAN santana [facility] 2021-10-03 2021-10-03 Pre Visit DARIEN LarkinCyndee [id number] Univers 00:00:00 00:00:00 Outreach Phuong DUVALLY [id number] [place]y [place] [id number] [place] [id number] [place] [address] [place] 2021-07-21 2021-07-21 Display Coordinator 2, Adc Lab [facility] [id number] Univers 16:15:00 16:30:00 Visit Petrona Perez [id number] ity [facility] [id number] [place] [phone] La dical NAL 353 [facility] 2021-07-21 2021-07-21 Outpatient R PETRONA PEREZ [facility] [id number] Univers 16:15:00 16:15:[address] [facility] 2021-07-21 2021-07-21 Office Petrona Perez [facility] [id number] Univers 15:30:00 16:04:18 Visit Earnest ARIZMENDI [id number] i ty of [facility] [id number] [place] [phone] La dical NAL 134 [facility] 2021-07-21 2021-07-21 Outpatient R PETRONA PEREZ [facility] [id number] Univers 15:30:00 16:04:[address] [facility] 2021-07-21 2021-07-21 Orders Doctor ONEILL [id number] [id number] Univers 00:00:00 00:00:00 Only Unassigned, NICK [id number] ity of [place] [facility] [id number] José Manuel as [phone] [place] 009 Branch 2021-07-04 2021-07-04 Outpatient R AKIRA [facility] [id number] Univers 13:30:00 13:30:00 NOMAN santana [facility] 2021-04-17 2021-04-17 Letter NINO Caicedo [id number] Univers 00:00:00 00:00:00 (Out) Nataliya Drea ROMERO [id number] it y of [facility] [id number] José Manuel as [phone] [place] [address] 2021-04-16 2021-04-16 Outpatient R ANIBAL [facility] [id number] Univers 19:20:00 19:38:01 REBECCA santana o f [facility] 2021-04-16 2021-04-16 Urgent AnibalKarenRebecca [facility] 1.2.840. 114 [id number] Univers 19:20:00 19:38:01 Jose [facility] [id number] ity [facility] 4.2.7.2.686 José Manuel as GALEN?BLEA [phone] [address] MEDICAL OFFICE BUILDING 2021-02-14 2021-02-14 Outpatient ZARA BURNHAM [facility] [id number] 12:55:00 21:50:00 [facility] 2020-06-17 2020-06-17 Telephone de [facility] 1.2.840.114 [id number] 00:00:00 00:00:00 Jarod Raymundo [id number] [facility] 4.2.7.2.686 Clinic [id number] [facility] 2020-06-17 2020-06-17 Telephone de [facility] 1.2.840.114 [id number] Univers 00:00:00 00:00:00 Jarod Raymundo [id number] ity of [facility] [place]2.[place] [facility] [phone] [place] [address] 2020-05-28 2020-05-28 Patient Gutierrez [facility] [id number] 00:00:00 00:00:00 Outreach Kai PRIMARY [id number] [facility] 4.2.7.2.686 PAVILLION [id number] 388 2020-05-28 2020-05-28 Patient Gutierrez [facility] [id number] Univers 00:00:00 00:00:00 Outreach Kai PRIMARY [id number] i ty of [place] [facility] 4.2.7.2.686 [place] [phone] [place] dical [address] [place] [address] 2020-02-04 2020-02-04 Emergency [facility] [id number] [facility] 05:53:00 05:53:00 72 2019-12-02 2019-12-02 Laboratory Lab, [facility] 1.2.840.114 [id number] 14:31:28 14:51:28 Only Fam Pob I Health [id number] [place] 4.2.7.2.686 Professio [phone] nal [facility] 2019-12-02 2019-12-02 Laboratory Lab, [facility] Fam Pob I [facility] 1.2. 840.114 [id number] Univers 14:31:28 14:51:28 Only Altagracia Apple [facility] [id number] ity of [place] 4.2.7.2.686 José Manuel as Professio [phone] [address] Office Building [facility] 2019-12-02 2019-12-02 Outpatient R ALTAGRACIA [facility] [id number] Univers 14:20:00 14:20:00 APPLE ity of [facility] 2019-12-02 2019-12-02 Letter Doctor ONEILL 1.2.840.114 [id number] 00:00:00 00:00:00 (Out) Unassigned, NICK [id number] [place] [facility] 4.2.7.2.686 [phone] [id number] 2019-12-02 2019-12-02 Letter Doctor OENILL 1.2.840.114 [id number] Univers 00:00:00 00:00:00 (Out) Unassigned, NICK [id number] ity of [place] [facility] 4.2.7.2.686 José Manuel as [phone] [place] [address] 2019-11-21 2019-11-21 Outpatient R JAMA [facility] [id number] Univers 08:20:00 08:20:00 CAMILLA santana [facility] 2019-11-16 2019-11-16 Outpatient R JAMA [facility] [id number] Univers 14:00:00 14:00:00 CAMILLA santana [facility] 2019-11-03 2019-11-03 Office Gary Del Toro [facility] 1.2.840.114 [id number] 08:56:18 09:24:12 Visit Jarod [id number] Pediatric 4.2.7.2.686 Clinic [phone] [facility] 2019-11-03 2019-11-03 Office Gary Del Toro [facility] 1.2.840.114 [id number] Univers 08:56:18 09:24:12 Visit Jarod [id number] it y [place] [facility] [place]7.2.686 [place] [facility] [phone] [place] [address] 2019-11-03 2019-11-03 Outpatient R GARY DEL TORO [facility] [id number] Univers 09:00:00 09:00:[address] [facility] 2019-11-03 2019-11-03 Orders Doctor NINO 1.2.840.114 [id number] Univers 00:00:00 00:00:00 Only Unassigned, NICK [id number] ity of [place] [facility] 4.2.7.2.686 José Manuel as [phone] [place] [address] 2019-09-29 2019-09-29 Outpatient R JAMA [facility] [id number] Univers 10:00:00 10:00:00 CAMILLA kiley [facility] 2019-08-03 2019-08-03 Outpatient R [facility] [id number] Univers 15:40:00 15:40:00 ity [facility] 2019-05-29 2019-05-29 Telephone [facility] 1.2.840.11 [id number] Univers 00:00:00 00:00:00 , Margo Olivera [id number] it y of [place] 4[place]2.7.2.686 [place] [facility] [phone] [address] 2019-04-25 2019-04-25 Outpatient R [facility] [id number] Univers 08:10:00 08:53:36 , MARGO ity of [facility] 2019-04-25 2019-04-25 Office [facility] 1.2.840.114 [id number] Univers 08:05:29 08:53:36 Visit , Margo Olivera [id number] it y of [facility] 4.2.7.2.686 [place] [facility] [facility] [id number] [address] 2019-03-28 2019-03-28 Telephone Gary Del Toro [facility] 1.2.840.114 [id number] Univers 00:00:00 00:00:00 Jarod [id number] it y of [facility]7.2.686 [facility] [id number] [address] 2018-11-24 2018-11-24 Orders Doctor NINO 1.2.840.114 [id number] [facility] 00:00:00 00:00:00 Only Unassigned, NICK [id number] ity of [place] [facility] 4.2.7.2.686 José Manuel as [phone] [address] [place] [address] 2018-11-15 2018-11-15 Telephone [facility] 1.2.840.11 [id number] Univers 00:00:00 00:00:00 Monica Ervin 350.1.13.10 ity of [facility] 4[place]2.7.2.686 [place] [facility] [phone] [address] Results Test Description Test Time Test Comments Results Result Comments Source POCT SARS-COV-2 ANTIGEN (BINAX NOW) 2022-10-29 18:02:00 Test Item Value Reference Range Interpretation Comme nts POCT SARS-COV-2 ANTIGEN (test code = 38902-6) Not Detected Not Dete cted On board controls acceptable with C Line (test code = Yes 3574) [id number] 17:54:35 Test Item Value Reference Range Interpretation Comments POCT Molecular Strep (test code = Negative Negative 36340-4) Lab Interpretation (test code = Normal 19586-9) [facility] [id number] 17:54:34 Test Item Value Reference Range Interpretation Comments POCT Molecular FluA (test code = Negative Negative 56398-8) POCT Molecular FluB (test code = Negative Negative 21853-4) Lab Interpretation (test code = Normal 89651-6) [facility] [id number] 06:35:00 Test Item Value Reference Range Interpretation Comments RBC,Urine (test code = URBC.XX) 0-2 /HPF None Seen WBC,Urine (test code = UWBC.XX) 0-5 /HPF None Seen Squamous Epithelial Cell,Urine 0-5 /HPF None Seen (test code = USQEPI.XX) Bacteria,Urine (test code = UBACT) Trace /HPF None Seen A Complete Blood Count Auto [id number] 06:35:00 Test Item Value Reference Range Interpretation [...] code = NRBCP) 0 % Comprehensive Metabolic [id number] 06:35:00 Test Item Value Reference Range Interpretation [...] 57 U/L 46-116 N = ALP) Ethanol [id number] 06:35:00 Test Item Value Reference Range Interpretation Comments Ethanol (test code = ETOH) < 3 mg/dL UA, Urinalysis Rflx Cult/[id number] 06:35:00 Test Item Value Reference Range Interpretation Comments Color,Urine (test code Yellow Yellow = UCOL) Clarity,Urine (test Clear Clear code = UCLAR) PH,Urine (test code = 7.0 5.5-8.5 UPH.XX) Specific [place],Urine 1.020 1.005-1.030 N (test code = USG) [...] Negative A Esterase,Urine (test code = ULEU) HCG, Urine Qual (LAB)2020-02-04 06:34:00 Test Item Value Reference Range Interpretation Comments HCG, Urine, Qual (test code = HCGU) Positive Negative Drug Screen,[id number] 06:34:00 Test Item Value Reference Range Interpretation [...]
[2022-12-14 17:21] LABS: Potassium 3.5 mEq/L (3.5-5.1); Troponin High Sensitivity 6.2 pg/mL (<58.9)
[2022-12-14 17:27] LABS: Absolute Lymphocytes (CBC) 2.9 K/uL (0.7-4.9); Hematocrit 38.4 % (36.0-45.0); Lymphocytes % 30.9 % (15.3-44.8); MPV 10.4 fL (7.6-11.3); Platelets 200 thou/uL (152-406); RBC Red Blood Cell Count 4.92 M/uL (3.86-4.86)
[2022-12-14] MEDS ORDERED: NA CHLORIDE 0.9% 1,000 ML ONE (17:56)
--- NOTE | 2022-12-14 18:19 | RAD REPORT ---
EXAM DESCRIPTION: RADChest Single View12/14/2022 5:05 pm CLINICAL HISTORY: CHEST PAIN COMPARISON: Chest Single View dated 01/31/2022; Chest Single View dated 03/19/2019 TECHNIQUE: Portable AP view of the chest. FINDINGS: The lungs are clear. No pneumothorax or effusion. The cardiomediastinal contours are unre markable. IMPRESSION: No acute cardiopulmonary process.
--- NOTE | 2022-12-14 18:26 | ER ---
Nurse's Notes [facility] Name: Milvia Murdock Age: 22 yrs Sex: Female : 2000 Arrival Date: 12/14/2022 Time: 16:22 Bed Treatment Private MD: Diagnosis: Palpitations Presentation: 12/14 16:29 Chief complaint: Patient states: "This morning I started having chest tightness that mb9 makes it hard to breathe. I've been drinking energy drinks that past 4 days and had two today but decided to not drink anymore.". Coronavirus screen: At this time, the client does not indicate any symptoms associated with coronavirus-19. Ebola Screen: No symptoms or risks identified at this time. Initial Sepsis Screen: Does the patient meet any 2 criteria? No. Patient's initial sepsis screen is negative. Does the patient have a suspected source of infection? No. Patient's initial sepsis screen is negative. Risk Assessment: Do you want to hurt yourself or someone else? Patient reports no desire to harm self or others. Onset of symptoms was December 14, 2022. 16:29 Method Of Arrival: Ambulatory mb9 16:29 Acuity: KULDEEP 3 mb9 Triage Assessment: 16:31 General: Appears in no apparent distress. Behavior is calm, cooperative. Pain: mb9 Complains of pain in chest Pain does not radiate. Pain currently is 4 out of 10 on a pain scale. Quality of pain is described as pressure, Pain began suddenly, Is continuous. Neuro: Thomas Agitation-Sedation Scale (RASS): 0 - Alert and Calm Level of Consciousness is awake, alert, obeys commands, Oriented to person, place, time, situation, Appropriate for age. Cardiovascular: Reports chest pain, shortness of breath, Heart tones S1 S2 present Patient's skin is warm and dry. Respiratory: Airway is patent Respiratory effort is even, unlabored, Respiratory pattern is regular, symmetrical. GI: Abdomen is round non-distended. : No signs and/or symptoms were reported regarding the genitourinary system. Derm: Skin is pink, warm \\T\\ dry. Musculoskeletal: Range of motion: intact in all extremities. Historical: - Allergies: 16:31 Prozac; mb9 - Home Meds: 16:31 duloxetine 30 mg Oral Capsule daily [Active]; mb9 - PMHx: 16:31 Asthma; Depression; mb9 - PSHx: 16:31 right foot surgery; Tonsillectomy; mb9 - Immunization history:: Adult Immunizations up to date. - Social history:: Smoking status: Reported history of juuling and/or vaping. Screenin:38 [facility] ED Fall Risk Assessment (Adult) Score/Fall Risk Level 0 - 2 = Low Risk. Abuse iw screen: Denies threats or abuse. Denies injuries from another. Nutritional screening: No deficits noted. Tuberculosis screening: No symptoms or risk factors identified. Assessment: 16:41 Reassessment: EKG done in triage. mb9 17:37 General: Appears in no apparent distress. Behavior is calm, cooperative. Neuro: Level iw of Consciousness is awake, alert, obeys commands, Oriented to person, place, time, situation, Moves all extremities. Full function. Cardiovascular: Patient's skin is warm and dry. Respiratory: Respiratory effort is even, unlabored, Respiratory pattern is regular. Vital Signs: 16:29 BP 112 / 61; Pulse 73; Resp 18; Temp 98.1; Pulse Ox 100% on R/A; Weight 81.65 kg; mb9 Height 5 ft. 7 in. ; Pain 4/10; 19:18 BP 115 / 87; Pulse 84; Resp 18 S; Pulse Ox 99% on R/A; as6 16:29 Body Mass Index 28.19 (81.65 kg, 170.18 cm) mb9 16:29 Pain Scale: Adult mb9 ED Course: 16:26 Patient arrived in ED. mg5 16:28 [facility] jh7 16:28 Krunal Mendez MD is Attending Physician. jh7 16:30 Triage completed. mb9 16:31 Arm band placed on. mb9 16:48 Basic Metabolic Panel Sent. bc6 16:48 CBC with Diff Sent. bc6 16:48 D-Dimer Sent. bc6 16:48 Troponin HS Sent. bc6 16:48 Inserted saline lock: 20 gauge in left antecubital area, using aseptic technique. Blood bc6 collected. 17:07 XRAY Chest (1 view) In Process Unspecified. EDMS 17:36 Teri Hutton, RN is Primary Nurse. iw 19:12 No provider procedures requiring assistance completed. IV discontinued, intact, as6 bleeding controlled, No redness/swelling at site. Pressure dressing applied. 19:14 Bed in low position. Call light in reach. as6 19:17 Provided Education on: follow up. as6 Administered Medications: 17:46 Drug: NS 0.9% IV 1000 ml IV at 1 bolus Per protocol; 1000 mL bolus Route: IV; Rate: 1 iw bolus; Site: left antecubital; 19:17 Follow up: Response: No adverse reaction; IV Status: Completed infusion; IV Intake: as6 1000ml Medication: 19:13 VIS not applicable for this client. as6 Intake: 19:17 IV: 1000ml; Total: 1000ml. as6 Outcome: 18:25 Discharge ordered by . 7 19:13 Discharged to home ambulatory, as6 19:13 Condition: stable 19:13 Discharge instructions given to patient, Instructed on discharge instructions, follow up and referral plans. Demonstrated understanding of instructions, follow-up care, 19:18 Patient left the ED. as6 Signatures: Dispatcher [employer] EDTeri Still, RN RAMIRO iw Tal Nolasco RN RN as6 Pilar Mathis, FURNACE CHECKER FURNACE CHECKER jh7 Melissa Dukes RN RN mb9 Dayan Schroeder 6 Alison Thorne mg5
--- NOTE | 2022-12-14 18:26 | EDPHYS ---
Physician Documentation [facility] Name: Milvia Murdock Age: 22 yrs Sex: Female : 2000 Arrival Date: 12/14/2022 Time: 16:22 Bed Treatment Private MD: ED Physician Krunal Mendez HPI: 12/14 16:31 This 22 yrs old Female presents to ER via Ambulatory with complaints of Chest jh7 Pain, Breathing Difficulty, Palpitations. 16:31 Onset: The symptoms/episode began/occurred today. Associated signs and symptoms: jh7 Pertinent positives: chest pain, shortness of breath, Pertinent negatives: abdominal pain, cough, fever. 22-year-old female presents to the ER complaining of chest pain, shortness of breath, and palpitations starting today. Reports that she had 2 energy drinks and coffee today. 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 Denies any medical problems. Reports a history of anxiety.. Historical: - Allergies: 16:31 Prozac; mb9 - Home Meds: 16:31 duloxetine 30 mg Oral Capsule daily [Active]; mb9 - PMHx: 16:31 Asthma; Depression; mb9 - PSHx: 16:31 right foot surgery; Tonsillectomy; mb9 - Immunization history:: Adult Immunizations up to date. - Social history:: Smoking status: Reported history of juuling and/or vaping. ROS: 16:31 Constitutional: Negative for fever, chills, and weight loss, Eyes: Negative for injury, jh7 pain, redness, and discharge, Neck: Negative for injury, pain, and swelling, Abdomen/GI: Negative for abdominal pain, nausea, vomiting, diarrhea, and constipation, Back: Negative for injury and pain, MS/Extremity: Negative for injury and deformity, Skin: Negative for injury, rash, and discoloration, Neuro: Negative for headache, weakness, numbness, tingling, and seizure, 16:31 Cardiovascular: Positive for chest pain, palpitations, 16:31 Respiratory: Positive for shortness of breath, Negative for cough, wheezing, 16:31 All other systems are negative, Exam: 16:31 Constitutional: This is a well developed, well nourished patient who is awake, alert, jh7 and in no acute distress. Head/Face: Normocephalic, atraumatic. Neck: Trachea midline, no thyromegaly or masses palpated, and no cervical lymphadenopathy. Supple, full range of motion without nuchal rigidity, or vertebral point tenderness. No Meningismus. Cardiovascular: Regular rate and rhythm with a normal S1 and S2. No gallops, murmurs, or rubs. Normal PMI, no JVD. No pulse deficits. Respiratory: Lungs have equal breath sounds bilaterally, clear to auscultation and percussion. No rales, rhonchi or wheezes noted. No increased work of breathing, no retractions or nasal flaring. Abdomen/GI: Soft, non-tender, with normal bowel sounds. No distension or tympany. No guarding or rebound. No evidence of tenderness throughout. Skin: Warm, dry with normal turgor. Normal color with no rashes, no lesions, and no evidence of cellulitis. MS/ Extremity: Pulses equal, no cyanosis. Neurovascular intact. Full, normal range of motion. Neuro: Awake and alert, GCS 15, oriented to person, place, time, and situation. Normal gait. Vital Signs: 16:29 BP 112 / 61; Pulse 73; Resp 18; Temp 98.1; Pulse Ox 100% on R/A; Weight 81.65 kg; mb9 Height 5 ft. 7 in. ; Pain 4/10; 19:18 BP 115 / 87; Pulse 84; Resp 18 S; Pulse Ox 99% on R/A; as6 16:29 Body Mass Index 28.19 (81.65 kg, 170.18 cm) 9 16:29 Pain Scale: Adult mb9 MDM: 16:28 Patient medically screened. [facility] 18:23 Differential diagnosis: SVT, palpitations, pulmonary embolism. Data reviewed: vital [facility] signs, nurses notes, lab test result(s), EKG, radiologic studies, plain films. I considered the following discharge prescriptions or medication management in the emergency department Medications were administered in the Emergency Department. See MAR. Independent interpretation of the following test(s) in the Emergency Department EKG: See my EKG interpretation above. Counseling: I had a detailed discussion with the patient and/or guardian regarding the historical points, exam findings, and any diagnostic results supporting the discharge/admit diagnosis, to return to the emergency department if symptoms worsen or persist or if there are any questions or concerns that arise at home. Response to treatment: the patient's symptoms have mildly improved after treatment. 12/14 16:34 Order name: Basic Metabolic Panel; Complete Time: 17:35 [facility] 12/14 16:34 Order name: CBC with Diff; Complete Time: 17:35 [facility] 12/14 16:34 Order name: D-Dimer; Complete Time: 17:35 [facility] 12/14 16:34 Order name: Troponin HS; Complete Time: 17:35 [facility] 12/14 16:34 Order name: XRAY Chest (1 view); Complete Time: 18:23 [facility] 12/14 16:34 Order name: EKG; Complete Time: 16:35 [facility] 12/14 16:34 Order name: EKG - Nurse/Tech; Complete Time: 16:48 [facility] 12/14 16:34 Order name: IV Saline Lock; Complete Time: 16:48 [facility] 12/14 16:34 Order name: Labs collected and sent; Complete Time: 16:48 [facility] 12/14 16:34 Order name: O2 Per Protocol; Complete Time: 17:37 [facility] 12/14 16:34 Order name: O2 Sat Monitoring; Complete Time: 17:37 7 EC:39 Rate is 87 beats/min. Rhythm is regular. QRS Gray is Normal. KS interval is normal at [facility] 136 msec. QRS interval is normal at 88 msec. QT interval is normal at 382 msec. No Q waves. T waves are Normal. No ST changes noted. Clinical impression: Normal ECG. Administered Medications: 17:46 Drug: NS 0.9% IV 1000 ml IV at 1 bolus Per protocol; 1000 mL bolus Route: IV; Rate: 1 iw bolus; Site: left antecubital; 19:17 Follow up: Response: No adverse reaction; IV Status: Completed infusion; IV Intake: as6 1000ml Disposition: 12/15 12:09 Co-signature as Attending Physician, Krunal Mendez MD I reviewed the patient's care rn provided by the Advanced Practice Provider and agree with the diagnosis and treatment plan. Disposition Summary: 12/14/22 18:25 Discharge Ordered Notes: Location: Home [facility] Problem: new [facility] Symptoms: have improved [facility] Condition: Stable [facility] Diagnosis - Palpitations jh7 Followup: [facility] - With: Private Physician - When: 2 - 3 days - Reason: Recheck today's complaints Discharge Instructions: - Discharge Summary Sheet [facility] - Palpitations [facility] Forms: - Work release form iw - Medication Reconciliation Form [facility] - Thank You Letter [facility] - Patient Portal Instructions [facility] - Leadership Thank You Letter [facility] Signatures: Dispatcher [employer] Teri Hester, RAMIRO RN iw Krunal Mendez MD MD rn Hadash, Jennifer, FNP [employer] 7 Melissa Dukes RN RN mb9 Tal Nolasco RN as6
[2022-12-14 19:36] VITALS: TEMP 98.1
[2022-12-14 19:42] VITALS: BP 115/87; O2SAT 99
--- NOTE | 2022-12-15 11:42 | EKG ---
Test Date: 2022-12-14 Test Time: 16:39:37 Employee Relations Specialist: MB MEASUREMENT RESULTS: Intervals: Rate: 87 CA: 136 QRSD: 88 QT: 382 QTc: 459 Canmer: P: 77 CA: 136 QRS: 83 T: 70 INTERPRETIVE STATEMENTS: Normal sinus rhythm Normal ECG Compared to ECG 01/31/2022 01:40:28 No significant changes Electronically Signed On 12-15-22 11:40:04 CDT by Da Casey
== END 2022-12-14 19:18 | disposition home or self-care (01) ==
LOC: ER 16:22
DX: R00.2 Palpitations (principal); F32.A Depression, unspecified; Z88.8 Allergy status to other drugs, medicaments and biological substances
CPT/HCPCS: 96361; 93005; 85025; 80048; 36415; 85379; 84484; 71045; 96360; 99284; J7030

== ENCOUNTER → 2023-04-03 | Emergency (ER) | payer BC, OTHER ==
[~2023-04-03] MED LIST: AZITHROMYCIN 250 MG TAB ONE; CEFTRIAXONE 500 MG/VIAL ONE; LIDOCAINE 1% MPF 2 ML AMPULE ONE; ONDANSETRON 4 MG (ODT) TAB ONE
--- OUTSIDE RECORDS SUMMARY | 2023-04-03 14:51 | XMS REPORT | Continuity of Care Document ---
Author Name Unknown Address [address] [facility] [address] [place] [address] [facility] thconnect Address [address] [facility] [address] [place] [address] Care Team Providers Care Bowl Topper Name Role Phone NOMAN CHAMPION Primary Care Physician Jacy Khalif Segovia Attending Clinician Unavaila NAIMA Galan Attending Clinician Unavailable Lab, Ang - Db Attending Clinician Unavailable Anene PRISON TEACHER, Naima Attending Clinician [phone] Ebnereyda PRISON TEACHER, Alex Attending Clinician [phone] Unknown, Attending Attending Clinician Unavailab le ALEX VÁZQUEZ Attending Clinician Unavailable PETRONA PEREZ Attending Clinician Unavailable MELODY CROWE Attending Clinician Unavailable Melody Crowe MD Attending Clinician [phone] JOANNA ANTHONY Attending Clinician Unavailable Joanna Anthony PA-C Attending Clinician + [phone] Doctor Unassigned, [place] Attending Clinician U jeremías Champion MD, Noman Bean Attending Clinician [phone] NOMAN CHAMPION Attending Clinician Unavai TRENTON Gage Attending Clinician Jacy vailable Phuong Larkin MA Attending Clinician Unavaila ble 2, Adc Lab Attending Clinician Unavailable Everette MART, Petrona Tinoco Attending Clinician [phone] Marifer RUBIO, Nataliya Shepard Attending Clinician Unavailab REBECCA Zafar Attending Clinician Unavailabl aayush Barnett PRISON TEACHER, Rebecca Attending Clinician [phone] KHALIF ADAME Attending Clinician Un available BolanosP, Stefani Attending Clinician + [phone] Kai Whitley DO Attending Clinician [phone] Lab, Adc Fam Pob I Attending Clinician Unavailab Apple Ortiz Attending Clinician [phone] APPLE FRIAS Attending Clinician Unavailable CAMILLA YUN Attending Clinician Unavail able Gary Del Toro MD Attending Clinician [phone] GARY DEL TORO Attending Clinician Unavailable Margo Emmanuel PA-C Attending Clinician [phone] MARGO EMMANUEL Attending Clinician Unavailab Monica Preston MD Attending Clinician + [phone] [place]ON BULLOCK Admitting Clinician Jacy vailable Payers Payer Name Policy Type Policy Number Effective Date Expirati on Date Source [facility] - OUT OF STATE [id number] 2016 00:00:00 [place] [employer] [id number] 2022 00:00:00 MED[place] OF [place] [id number] 2021 00:00:00 2022 00:00:00 Problems Condition Name Condition Details Condition Category Status Onset Date Resolution Date Last Treatment Date Treating Clinician Comments Source 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 Disease Active 10-03 00:00: 00 [facility] Major depressive disorder with single episode, 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, in partial remission Disease Active 03-19 00:00: 00 [facility] Atopic dermatitis , unspecifie d type Atopic dermatitis , unspecifie d type Disease Active 2016-03 00:00: 00 [facility] Allergies, Adverse Reactions, Alerts Allergy Name Allergy Type Status Severity Reaction(s) Onset Date Inactive Date Treating Clinician Comments Source Fluoxeti ne Drug Allergy Active Hives 07-24 00:00: 00 [facility] FLUOXETI NE DRUG INGREDI Active Hives 07-24 00:00: 00 [facility] fluoxeti ne DA Active U Rash 2019-03 00:00: 00 [facility] Fluoxeti ne Hcl Propensi ty to adverse reaction s Active Rash 09-27 00:00: 00 [facility] FLUOXETI NE HCL DRUG INGREDI Active Hives 09-27 00:00: 00 [facility] Social History Social Habit Start Date Stop Date Quantity Comments Source History SDOH Alcohol Frequency [facility] History SDOH Alcohol Std Drinks [facility] History SDOH Alcohol Binge [facility] History of tobacco use Passive smoker [facility] Gender identity [facility] intake 2023-03-24 00:00:00 2023-03-24 00:00:00 Current drinker of alcohol (finding) [facility] Exposure to SARS-CoV-2 (event) 2021-12-07 00:00:00 2021-12-17 13:03:00 Not sure [facility] History of Social function 2021-10-10 00:00:00 2021-10-10 00:00:00 [facility] Tobacco use and exposure 2021-10-10 00:00:00 2021-10-10 00:00:00 Smokeless tobacco non-user [facility] Alcohol Comment 2021-07-21 00:00:00 2021-07-21 00:00:00 ocassional [facility] Sex Assigned At 2001 00:00:00 2000 00:00:00 [facility] Smoking Status Start Date Stop Date Source Never smoked tobacco [facility] Medications Ordered Medication Name Filled Medication Name Start Date Stop Date Current Medication? Ordering Clinician Indication Dosage Frequency Signature (SIG) Comments Components Source metroNIDAZO LE (FLAGYL) 500 mg tablet 03-25 00:00: 00 04-02 05:59 :00 Yes [id number] 500mg Take 1 tablet by mouth every 12 (twelve) hours for 7 days. [facility] metroNIDAZO LE (FLAGYL) 500 mg tablet 03-25 00:00: 00 04-02 05:59 :00 Yes [id number] 500mg Take 1 tablet by mouth every 12 (twelve) hours for 7 days. [facility] doxycycline hyclate 100 mg tablet 03-25 00:00: 00 04-02 05:59 :00 Yes [id number] 100mg Take 1 tablet by mouth in the morning and 1 tablet in the evening. Do all this for 7 days. [facility] metroNIDAZO LE (FLAGYL) 500 mg tablet 03-25 00:00: 00 04-02 05:59 :00 Yes [id number] 500mg Take 1 tablet by mouth every 12 (twelve) hours for 7 days. [facility] doxycycline hyclate 100 mg tablet 18 00:00: 00 04-02 05:59 :00 Yes [id number] 100mg Take 1 tablet by mouth in the morning and 1 tablet in the evening. Do all this for 7 days. [facility] metroNIDAZO LE (FLAGYL) 500 mg tablet 03-25 00:00: 00 04-02 05:59 :00 Yes [id number] 500mg Take 1 tablet by mouth every 12 (twelve) hours for 7 days. [facility] doxycycline hyclate 100 mg tablet 03-25 00:00: 00 04-02 05:59 :00 Yes [id number] 100mg Take 1 tablet by mouth in the morning and 1 tablet in the evening. Do all this for 7 days. [facility] metroNIDAZO LE (FLAGYL) 500 mg tablet 03-25 00:00: 00 04-02 05:59 :00 Yes [id number] 500mg Take 1 tablet by mouth every 12 (twelve) hours for 7 days. [facility] doxycycline hyclate 100 mg tablet 03-25 00:00: 00 04-02 05:59 :00 Yes [id number] 100mg Take 1 tablet by mouth in the morning and 1 tablet in the evening. Do all this for 7 days. [facility] cefTRIAXone (ROCEPHIN) injection 500 mg 03-24 23:15: 00 03-24 22:45 :00 No [id number] 500mg [facility] cefTRIAXone (ROCEPHIN) injection 500 mg 03-24 23:15: 00 03-24 22:45 :00 No [id number] 500mg 500 mg, Intramuscu lar, ONCE, 1 dose, On Wed03/24/23 at 1715, RICK
Re ason for Anti-Infec tive: Documented Infection< br>Documen jayesh Infection Site: Urine
D uration of Therapy: Other (see Comments) [facility] cefTRIAXone (ROCEPHIN) injection 500 mg 03-24 23:15: 00 03-24 22:45 :00 No [id number] 500mg [facility] cefTRIAXone (ROCEPHIN) injection 500 mg 03-24 23:15: 00 03-24 22:45 :00 No [id number] 500mg 500 mg, Intramuscu lar, ONCE, 1 dose, On Wed03/24/23 at 1715, RICK
Re ason for Anti-Infec tive: Documented Infection< br>Documen jayesh Infection Site: Urine
D uration of Therapy: Other (see Comments) [facility] cefTRIAXone (ROCEPHIN) injection 500 mg 03-24 23:15: 00 03-24 22:45 :00 No [id number] 500mg [facility] cefTRIAXone (ROCEPHIN) injection 500 mg 03-24 23:15: 00 03-24 22:45 :00 No [id number] 500mg 500 mg, Intramuscu lar, ONCE, 1 dose, On Wed03/24/23 at 1715, RICK
Re ason for Anti-Infec tive: Documented Infection< br>Documen jayesh Infection Site: Urine
D uration of Therapy: Other (see Comments) [facility] cefTRIAXone (ROCEPHIN) injection 500 mg 03-24 23:15: 00 03-24 22:45 :00 No [id number] 500mg [facility] cefTRIAXone (ROCEPHIN) injection 500 mg 03-24 23:15: 00 03-24 22:45 :00 No [id number] 500mg 500 mg, Intramuscu lar, ONCE, 1 dose, On Wed03/24/23 at 1715, RICK
Re ason for Anti-Infec tive: Documented Infection< br>Documen jayesh Infection Site: Urine
D uration of Therapy: Other (see Comments) [facility] ondansetron 4 mg disintegrat ing tablet 2022-03 00:00: 00 Yes [id number] 4mg Take 1 tablet by mouth every 12 (twelve) hours as needed for Nausea and Vomiting (N/V). [facility] ondansetron 4 mg disintegrat ing tablet 2023-1 0-04 00:00: 00 Yes [id number] 4mg Take 1 tablet by mouth every 12 (twelve) hours as needed for Nausea and Vomiting (N/V). [facility] ondansetron 4 mg disintegrat ing tablet 2022-03 0- 00:00: 00 Yes [id number] 4mg Take 1 tablet by mouth every 12 (twelve) hours as needed for Nausea and Vomiting (N/V). [facility] ondansetron 4 mg disintegrat ing tablet 2022-03 0- 00:00: 00 Yes [id number] 4mg Take 1 tablet by mouth every 12 (twelve) hours as needed for Nausea and Vomiting (N/V). [facility] ondansetron 4 mg disintegrat ing tablet 2022-03 0 00:00: 00 Yes [id number] 4mg Take 1 tablet by mouth every 12 (twelve) hours as needed for Nausea and Vomiting (N/V). [facility] ondansetron 4 mg disintegrat ing tablet 2022-03 0 00:00: 00 Yes [id number] 4mg Take 1 tablet by mouth every 12 (twelve) hours as needed for Nausea and Vomiting (N/V). [facility] ondansetron 4 mg disintegrat ing tablet 2022-03 0 00:00: 00 Yes [id number] 4mg Take 1 tablet by mouth every 12 (twelve) hours as needed for Nausea and Vomiting (N/V). [facility] ondansetron 4 mg disintegrat ing tablet 2022-03 0- 00:00: 00 Yes [id number] 4mg Take 1 tablet by mouth every 12 (twelve) hours as needed for Nausea and Vomiting (N/V). [facility] ondansetron 4 mg disintegrat ing tablet 2022-03 0-04 00:00: 00 Yes [id number] 4mg Take 1 tablet by mouth every 12 (twelve) hours as needed for Nausea and Vomiting (N/V). [facility] ondansetron 4 mg disintegrat ing tablet 2022-03 0- 00:00: 00 Yes [id number] 4mg Take 1 tablet by mouth every 12 (twelve) hours as needed for Nausea and Vomiting (N/V). [facility] SERTRALINE 50 mg tablet 2021-03 0-04 00:00: 00 Yes [id number] 75mg TAKE 1.5 TABLETS BY MOUTH IN THE MORNING. [facility] SERTRALINE 50 mg tablet 2021-03 0-04 00:00: 00 Yes [id number] 75mg TAKE 1.5 TABLETS BY MOUTH IN THE MORNING. [facility] SERTRALINE 50 mg tablet 2021-03 0- 00:00: 00 Yes [id number] 75mg TAKE 1.5 TABLETS BY MOUTH IN THE MORNING. [facility] SERTRALINE 50 mg tablet 2021-03 0- 00:00: 00 Yes [id number] 75mg TAKE 1.5 TABLETS BY MOUTH IN THE MORNING. [facility] SERTRALINE 50 mg tablet 2021-03 0- 00:00: 00 Yes [id number] 75mg TAKE 1.5 TABLETS BY MOUTH IN THE MORNING. [facility] SERTRALINE 50 mg tablet 2021-03 0- 00:00: 00 Yes [id number] 75mg TAKE 1.5 TABLETS BY MOUTH IN THE MORNING. [facility] SERTRALINE 50 mg tablet 2021-03 0- 00:00: 00 Yes [id number] 75mg TAKE 1.5 TABLETS BY MOUTH IN THE MORNING. [facility] SERTRALINE 50 mg tablet 2021-03 0- 00:00: 00 Yes [id number] 75mg TAKE 1.5 TABLETS BY MOUTH IN THE MORNING. [facility] SERTRALINE 50 mg tablet 2021-03 0- 00:00: 00 Yes [id number] 75mg TAKE 1.5 TABLETS BY MOUTH IN THE MORNING. [facility] SERTRALINE 50 mg tablet 2021-03 0-04 00:00: 00 Yes [id number] 75mg TAKE 1.5 TABLETS BY MOUTH IN THE MORNING. [facility] SERTRALINE 50 mg tablet 2021-03 0-04 00:00: 00 Yes [id number] 75mg TAKE 1.5 TABLETS BY MOUTH IN THE MORNING. [facility] SERTRALINE 50 mg tablet 2021-03 0-04 00:00: 00 Yes [id number] 75mg TAKE 1.5 TABLETS BY MOUTH IN THE MORNING. [facility] SERTRALINE 50 mg tablet 2021-03 0 00:00: 00 Yes [id number] 75mg TAKE 1.5 TABLETS BY MOUTH IN THE MORNING. [facility] SERTRALINE 50 mg tablet 2021-03 0 00:00: 00 Yes [id number] 75mg TAKE 1.5 TABLETS BY MOUTH IN THE MORNING. [facility] SERTRALINE 50 mg tablet 2021-03 0 00:00: 00 Yes [id number] 75mg TAKE 1.5 TABLETS BY MOUTH IN THE MORNING. [facility] SERTRALINE 50 mg tablet 2021-03 0 00:00: 00 Yes [id number] 75mg TAKE 1.5 TABLETS BY MOUTH IN THE MORNING. [facility] SERTraline 50 mg tablet 11-12 00:00: 00 Yes [id number] 75mg Take 1.5 tablets by mouth in the morning. [facility] pantoprazol e 40 mg EC tablet 11-12 00:00: 00 Yes [id number] 40mg Take 1 tablet by mouth in the morning. [facility] SERTraline 50 mg tablet 11-12 00:00: 00 Yes [id number] 75mg Take 1.5 tablets by mouth in the morning. [facility] pantoprazol e 40 mg EC tablet 11-12 00:00: 00 Yes [id number] 40mg Take 1 tablet by mouth in the morning. [facility] pantoprazol e 40 mg EC tablet 11-12 00:00: 00 Yes [id number] 40mg Take 1 tablet by mouth in the morning. [facility] pantoprazol e 40 mg EC tablet 11-12 00:00: 00 Yes [id number] 40mg Take 1 tablet by mouth in the morning. [facility] pantoprazol e 40 mg EC tablet 11-12 00:00: 00 Yes [id number] 40mg Take 1 tablet by mouth in the morning. [facility] pantoprazol e 40 mg EC tablet 11-12 00:00: 00 Yes [id number] 40mg Take 1 tablet by mouth in the morning. [facility] pantoprazol e 40 mg EC tablet 0 11-12 00:00: 00 Yes [id number] 40mg Take 1 tablet by mouth in the morning. [facility] pantoprazol e 40 mg EC tablet 0 11-12 00:00: 00 Yes [id number] 40mg Take 1 tablet by mouth in the morning. [facility] pantoprazol e 40 mg EC tablet 11-12 00:00: 00 Yes [id number] 40mg Take 1 tablet by mouth in the morning. [facility] pantoprazol e 40 mg EC tablet 11-12 00:00: 00 Yes [id number] 40mg Take 1 tablet by mouth in the morning. [facility] pantoprazol e 40 mg EC tablet 0 11-12 00:00: 00 Yes [id number] 40mg Take 1 tablet by mouth in the morning. [facility] pantoprazol e 40 mg EC tablet 0 11-12 00:00: 00 Yes [id number] 40mg Take 1 tablet by mouth in the morning. [facility] pantoprazol e 40 mg EC tablet 0 11-12 00:00: 00 Yes [id number] 40mg Take 1 tablet by mouth in the morning. [facility] pantoprazol e 40 mg EC tablet 0 11-12 00:00: 00 Yes [id number] 40mg Take 1 tablet by mouth in the morning. [facility] pantoprazol e 40 mg EC tablet 0 11-12 00:00: 00 Yes [id number] 40mg Take 1 tablet by mouth in the morning. [facility] pantoprazol e 40 mg EC tablet 0 11-12 00:00: 00 Yes [id number] 40mg Take 1 tablet by mouth in the morning. [facility] pantoprazol e 40 mg EC tablet 2021-0 11-12 00:00: 00 Yes [id number] 40mg Take 1 tablet by mouth in the morning. [facility] pantoprazol e 40 mg EC tablet 11-12 00:00: 00 Yes [id number] 40mg Take 1 tablet by mouth in the morning. [facility] SERTraline 50 mg tablet 11-12 00:00: 00 12-09 00:00 :00 No [id number] 75mg Take 1.5 tablets by mouth in the morning. [facility] SERTRALINE 50 mg tablet 11-03 00:00: 00 Yes [id number] TAKE 1 TABLET BY MOUTH EVERY DAY IN THE MORNING [facility] SERTRALINE 50 mg tablet 11-03 00:00: 00 Yes [id number] TAKE 1 TABLET BY MOUTH EVERY DAY IN THE MORNING [facility] SERTRALINE 50 mg tablet 11-03 00:00: 00 12-09 00:00 :00 No [id number] TAKE 1 TABLET BY MOUTH EVERY DAY IN THE MORNING [facility] Immunizations Ordered Immunization Name Filled Immunization Name Date Status Comments Source Influenza Virus Vaccine Quad IM, Preserv and ABX Free 6 MO-64 YRS 2021-12-17 00:00:00 Completed [facility] Influenza Virus Vaccine Quad IM, Preserv and ABX Free 6 MO-64 YRS 2021-12-17 00:00:00 Completed [facility] Influenza Virus Vaccine Quad IM, Preserv and ABX Free 6 MO-64 YRS 2021-12-17 00:00:00 Completed [facility] Influenza Virus Vaccine Quad IM, Preserv and ABX Free 6 MO-64 YRS 2021-12-17 00:00:00 Completed [facility] Influenza Virus Vaccine Quad IM, Preserv and ABX Free 6 MO-64 YRS 2021-12-17 00:00:00 Completed [facility] SARS-COV-2 COVID-19 MODERNA 12+ YRS VACCINE 2020-07-31 00:00:00 Completed [facility] SARS-COV-2 COVID-19 MODERNA 12+ YRS VACCINE 2020-07-31 00:00:00 Completed [facility] SARS-COV-2 COVID-19 MODERNA 12+ YRS VACCINE 2020-07-31 00:00:00 Completed [facility] SARS-COV-2 COVID-19 MODERNA 12+ YRS VACCINE 2020-07-31 00:00:00 Completed [facility] SARS-COV-2 COVID-19 MODERNA 12+ YRS VACCINE 2020-07-31 00:00:00 Completed [facility] SARS-COV-2 COVID-19 MODERNA 12+ YRS VACCINE 2020-07-31 00:00:00 Completed [facility] SARS-COV-2 COVID-19 MODERNA 12+ YRS VACCINE 2020-07-31 00:00:00 Completed [facility] SARS-COV-2 COVID-19 MODERNA 12+ YRS VACCINE 2020-07-31 00:00:00 Completed [facility] SARS-COV-2 COVID-19 MODERNA 12+ YRS VACCINE 2020-07-04 00:00:00 Completed [facility] SARS-COV-2 COVID-19 MODERNA 12+ YRS VACCINE 2020-07-04 00:00:00 Completed [facility] SARS-COV-2 COVID-19 MODERNA 12+ YRS VACCINE 2020-07-04 00:00:00 Completed [facility] SARS-COV-2 COVID-19 MODERNA 12+ YRS VACCINE 2020-07-04 00:00:00 Completed [facility] SARS-COV-2 COVID-19 MODERNA 12+ YRS VACCINE 2020-07-04 00:00:00 Completed [facility] SARS-COV-2 COVID-19 MODERNA 12+ YRS VACCINE 2020-07-04 00:00:00 Completed [facility] SARS-COV-2 COVID-19 MODERNA 12+ YRS VACCINE 2020-07-04 00:00:00 Completed [facility] SARS-COV-2 COVID-19 MODERNA 12+ YRS VACCINE 2020-07-04 00:00:00 Completed [facility] TDAP 2019-01-08 00:00:00 Completed [facility] Influenza Virus Vaccine Quad .5 mL IM 6+ MO 2019-01-08 00:00:00 Completed [facility] TDAP 2019-01-08 00:00:00 Completed [facility] Influenza Virus Vaccine Quad .5 mL IM 6+ MO 2019-01-08 00:00:00 Completed [facility] TDAP 2019-01-08 00:00:00 Completed [facility] Influenza Virus Vaccine Quad .5 mL IM 6+ MO 2019-01-08 00:00:00 Completed [facility] TDAP 2019-01-08 00:00:00 Completed [facility] Influenza Virus Vaccine Quad .5 mL IM 6+ MO 2019-01-08 00:00:00 Completed [facility] TDAP 2019-01-08 00:00:00 Completed [facility] Influenza Virus Vaccine Quad .5 mL IM 6+ MO 2019-01-08 00:00:00 Completed [facility] TDAP 2019-01-08 00:00:00 Completed [facility] Influenza Virus Vaccine Quad .5 mL IM 6+ MO 2019-01-08 00:00:00 Completed [facility] TDAP 2019-01-08 00:00:00 Completed [facility] Influenza Virus Vaccine Quad .5 mL IM 6+ MO 2019-01-08 00:00:00 Completed [facility] TDAP 2019-01-08 00:00:00 Completed [facility] Influenza Virus Vaccine Quad .5 mL IM 6+ MO 2019-01-08 00:00:00 Completed [facility] HPV9 2015-10-03 00:00:00 Completed [facility] HPV9 2015-10-03 00:00:00 Completed [facility] HPV9 2015-10-03 00:00:00 Completed [facility] HPV9 2015-10-03 00:00:00 Completed [facility] HPV9 2015-10-03 00:00:00 Completed [facility] HPV9 2015-10-03 00:00:00 Completed [facility] HPV9 2015-10-03 00:00:00 Completed [facility] HPV9 2015-10-03 00:00:00 Completed [facility] HPV9 2014-10-16 00:00:00 Completed [facility] HPV9 2014-10-16 00:00:00 Completed [facility] HPV9 2014-10-16 00:00:00 Completed [facility] HPV9 2014-10-16 00:00:00 Completed [facility] HPV9 2014-10-16 00:00:00 Completed [facility] HPV9 2014-10-16 00:00:00 Completed [facility] HPV9 2014-10-16 00:00:00 Completed [facility] HPV9 2014-10-16 00:00:00 Completed [facility] HPV9 Unknown Completed [facility] HPV9 Unknown Completed [facility] TDAP Unknown Completed [facility] Influenza Virus Vaccine Quad .5 mL IM 6+ MO (FLUZONE/FLULAVAL/F LUARIX) Unknown Completed [facility] SARS-COV-2 COVID-19 MODERNA 12+ YRS VACCINE Unknown Completed [facility] SARS-COV-2 COVID-19 MODERNA 12+ YRS VACCINE Unknown Completed [facility] Influenza Virus Vaccine Quad IM, Preserv and ABX Free 6 MO-64 YRS (FLUCELVAX) Unknown Completed [facility] HPV9 Unknown Completed [facility] HPV9 Unknown Completed [facility] TDAP Unknown Completed [facility] Influenza Virus Vaccine Quad .5 mL IM 6+ MO (FLUZONE/FLULAVAL/F LUARIX) Unknown Completed [facility] SARS-COV-2 COVID-19 MODERNA 12+ YRS VACCINE Unknown Completed [facility] SARS-COV-2 COVID-19 MODERNA 12+ YRS VACCINE Unknown Completed [facility] Influenza Virus Vaccine Quad IM, Preserv and ABX Free 6 MO-64 YRS (FLUCELVAX) Unknown Completed [facility] HPV9 Unknown Completed [facility] HPV9 Unknown Completed [facility] TDAP Unknown Completed [facility] Influenza Virus Vaccine Quad .5 mL IM 6+ MO (FLUZONE/FLULAVAL/F LUARIX) Unknown Completed [facility] SARS-COV-2 COVID-19 MODERNA 12+ YRS VACCINE Unknown Completed [facility] SARS-COV-2 COVID-19 MODERNA 12+ YRS VACCINE Unknown Completed [facility] Influenza Virus Vaccine Quad IM, Preserv and ABX Free 6 MO-64 YRS (FLUCELVAX) Unknown Completed [facility] HPV9 Unknown Completed [facility] HPV9 Unknown Completed [facility] TDAP Unknown Completed [facility] Influenza Virus Vaccine Quad .5 mL IM 6+ MO (FLUZONE/FLULAVAL/F LUARIX) Unknown Completed [facility] SARS-COV-2 COVID-19 MODERNA 12+ YRS VACCINE Unknown Completed [facility] SARS-COV-2 COVID-19 MODERNA 12+ YRS VACCINE Unknown Completed [facility] Influenza Virus Vaccine Quad IM, Preserv and ABX Free 6 MO-64 YRS (FLUCELVAX) Unknown Completed [facility] HPV9 Unknown Completed [facility] HPV9 Unknown Completed [facility] TDAP Unknown Completed [facility] Influenza Virus Vaccine Quad .5 mL IM 6+ MO (FLUZONE/FLULAVAL/F LUARIX) Unknown Completed [facility] SARS-COV-2 COVID-19 MODERNA 12+ YRS VACCINE Unknown Completed [facility] SARS-COV-2 COVID-19 MODERNA 12+ YRS VACCINE Unknown Completed [facility] Influenza Virus Vaccine Quad IM, Preserv and ABX Free 6 MO-64 YRS (FLUCELVAX) Unknown Completed [facility] HPV9 Unknown Completed [facility] HPV9 Unknown Completed [facility] TDAP Unknown Completed [facility] Influenza Virus Vaccine Quad .5 mL IM 6+ MO (FLUZONE/FLULAVAL/F LUARIX) Unknown Completed [facility] SARS-COV-2 COVID-19 MODERNA 12+ YRS VACCINE Unknown Completed [facility] SARS-COV-2 COVID-19 MODERNA 12+ YRS VACCINE Unknown Completed [facility] Influenza Virus Vaccine Quad IM, Preserv and ABX Free 6 MO-64 YRS (FLUCELVAX) Unknown Completed [facility] HPV9 Unknown Completed [facility] HPV9 Unknown Completed [facility] TDAP Unknown Completed [facility] Influenza Virus Vaccine Quad .5 mL IM 6+ MO (FLUZONE/FLULAVAL/F LUARIX) Unknown Completed [facility] SARS-COV-2 COVID-19 MODERNA 12+ YRS VACCINE Unknown Completed [facility] SARS-COV-2 COVID-19 MODERNA 12+ YRS VACCINE Unknown Completed [facility] Influenza Virus Vaccine Quad IM, Preserv and ABX Free 6 MO-64 YRS (FLUCELVAX) Unknown Completed [facility] HPV9 Unknown Completed [facility] HPV9 Unknown Completed [facility] TDAP Unknown Completed [facility] Influenza Virus Vaccine Quad .5 mL IM 6+ MO (FLUZONE/FLULAVAL/F LUARIX) Unknown Completed [facility] SARS-COV-2 COVID-19 MODERNA 12+ YRS VACCINE Unknown Completed [facility] SARS-COV-2 COVID-19 MODERNA 12+ YRS VACCINE Unknown Completed [facility] Influenza Virus Vaccine Quad IM, Preserv and ABX Free 6 MO-64 YRS (FLUCELVAX) Unknown Completed [facility] HPV9 Unknown Completed [facility] HPV9 Unknown Completed [facility] TDAP Unknown Completed [facility] Influenza Virus Vaccine Quad .5 mL IM 6+ MO (FLUZONE/FLULAVAL/F LUARIX) Unknown Completed [facility] SARS-COV-2 COVID-19 MODERNA 12+ YRS VACCINE Unknown Completed [facility] SARS-COV-2 COVID-19 MODERNA 12+ YRS VACCINE Unknown Completed [facility] Influenza Virus Vaccine Quad IM, Preserv and ABX Free 6 MO-64 YRS (FLUCELVAX) Unknown Completed [facility] HPV9 Unknown Completed [facility] HPV9 Unknown Completed [facility] TDAP Unknown Completed [facility] Influenza Virus Vaccine Quad .5 mL IM 6+ MO (FLUZONE/FLULAVAL/F LUARIX) Unknown Completed [facility] SARS-COV-2 COVID-19 MODERNA 12+ YRS VACCINE Unknown Completed [facility] SARS-COV-2 COVID-19 MODERNA 12+ YRS VACCINE Unknown Completed [facility] Influenza Virus Vaccine Quad IM, Preserv and ABX Free 6 MO-64 YRS (FLUCELVAX) Unknown Completed [facility] Vital Signs Vital Name Observation Time Observation Value Comments S ource Systolic blood pressure 2023-03-24 22:26:00 107 mm[Hg] [facility] Diastolic blood pressure 2023-03-24 22:26:00 71 mm[Hg] [facility] Heart rate 2023-03-24 22:21:00 74 /min Unive [facility] Body temperature 2023-03-24 22:21:00 37.17 Eunice [facility] Respiratory rate 2023-03-24 22:21:00 18 /min [facility] Body weight 2023-03-24 22:21:00 77.111 kg [facility] BMI 2023-03-24 22:21:00 26.63 kg/m2 [facility] Oxygen saturation in Arterial blood by Pulse oximetry 2023-03-24 22:21:00 99 /min [facility] Systolic blood pressure 2022-12-09 21:24:00 99 mm[Hg] [facility] Diastolic blood pressure 2022-12-09 21:24:00 72 mm[Hg] [facility] Heart rate 2022-12-09 21:24:00 66 /min [facility] Body temperature 2022-12-09 21:24:00 36.89 Eunice [facility] Respiratory rate 2022-12-09 21:24:00 20 /min [facility] Body height 2022-12-09 21:24:00 170.2 cm [facility] Oxygen saturation in Arterial blood by Pulse oximetry 2022-12-09 21:24:00 100 /min [facility] Systolic blood pressure 2022-10-29 17:33:00 102 mm[Hg] [facility] Diastolic blood pressure 2022-10-29 17:33:00 68 mm[Hg] [facility] Heart rate 2022-10-29 17:33:00 56 /min [facility] Body temperature 2022-10-29 17:33:00 36.67 Eunice [facility] Respiratory rate 2022-10-29 17:33:00 18 /min [facility] Body weight 2022-10-29 17:33:00 85.095 kg [facility] Oxygen saturation in Arterial blood by Pulse oximetry 2022-10-29 17:33:00 98 /min [facility] Systolic blood pressure 2021-12-17 18:11:00 99 mm[Hg] [facility] Diastolic blood pressure 2021-12-17 18:11:00 62 mm[Hg] [facility] Heart rate 2021-12-17 18:11:00 70 /min Unive [facility] Body height 2021-12-17 18:11:00 167.6 cm [facility] Body weight 2021-12-17 18:11:00 107.049 kg [facility] BMI 2021-12-17 18:11:00 38.09 kg/m2 [facility] Systolic blood pressure 2021-11-12 21:27:00 110 mm[Hg] [place] [facility] Diastolic blood pressure 2021-11-12 21:27:00 63 mm[Hg] [place] [facility] Heart rate 2021-11-12 21:27:00 89 /min [facility] Body height 2021-11-12 21:27:00 167.6 cm [facility] Body weight 2021-11-12 21:27:00 108.41 kg [facility] BMI 2021-11-12 21:27:00 38.58 kg/m2 [facility] Procedures Procedure Date / Time Performed Performing Clinicia n Source POCT TEST 2023-03-24 22:47:00 Alex Vázquez [facility] POCT SARS-COV-2 ANTIGEN (BINAX NOW) 2022-10-29 18:01:00 Joanna Anthony [facility] POCT MOLECULAR STREP 2022-10-29 17:47:00 Unknown, Attaayush strong [facility] POCT MOLECULAR FLU 2022-10-29 17:42:00 Unknown, Attend [facility] CONSENT/REFUSAL FOR DIAGNOSIS AND TREATMENT 2022-10-29 17:26:54 Doctor Unassigned, [place] [facility] ASSIGNMENT OF BENEFITS 2022-10-29 17:26:38 Docto r Unassigned, [place] [facility] FLU VACC (), 6 MO-64 YRS, .5ML, IM, QUAD (FLUCELVAX) 2021-12-17 18:19:14 Noman Champion [facility] Encounters Start Date/Time End Date/Time Encounter Type Admission Type Attending Clinicians Care Facility Care Department Encounter ID Source 2021-02-25 11:00:00 Inpatient Khalif Valero [facility] DAYS [id number] [facility] 2020-02-04 05:53:00 Inpatient [facility] [id number] [facility] 2023-03-25 16:00:00 2023-03-25 16:52:34 Outpatient R NAIMA ALSTON [facility] [id number] [facility] 2023-03-25 16:00:00 2023-03-25 16:52:34 [employer] Visit Lab, Amalia Storm[facility] 1.2.840.114 350.1.13.10 4.2.7.2.686 [id number] [facility] 2023-03-25 00:00:00 2023-03-25 00:00:00 Telephone Alex V[facility]quez [facility] 1.2.840.114 350.1.13.10 4.2.7.2.686 [id number] [facility] 2023-03-25 00:00:00 2023-03-25 00:00:00 Telephone Alex V[facility]quez [facility] 1.2.840.114 350.1.13.10 4.2.7.2.686 [id number] [facility] 2023-03-25 00:00:00 2023-03-25 00:00:00 Telephone Alex V[facility]quez [facility] 1.2.840.114 350.1.13.10 4.2.7.2.686 [id number] [facility] 2023-03-24 17:20:00 2023-03-24 17:20:00 Urgent Care Alex Vázquez, Attending [facility] 1..840.114 350.1.13.10 4.2.7.2.686 [id number] [facility] 2023-03-24 17:20:00 2023-03-24 16:54:49 Outpatient R ALEX VÁZQUEZ [facility] [id number] [facility] 2023-01-07 15:00:00 2023-01-07 15:00:00 Outpatient R PETRONA PEREZ [facility] [id number] [facility] 2022-12-09 16:20:00 2022-12-09 16:31:50 Outpatient R MELODY CROWE [facility] [id number] [facility] 2022-12-09 16:20:00 2022-12-09 16:31:50 Urgent Care Melody Crowe Unknown, Attending [facility] MED[facility]ICE [facility] 1.840.114 350.1.13.10 4.2.7.2.686 [id number] [facility] 2022-10-29 12:40:00 2022-10-29 13:04:46 Outpatient R JOANNA ANTHONY [facility] [id number] [facility] 2022-10-29 12:40:00 2022-10-29 13:04:46 Urgent Care Joanna Anthony Unknown, Attending [facility] 1..840.114 350.1.13.10 4.2.7.2.686 [id number] [facility] 2022-10-29 00:00:00 2022-10-29 00:00:00 Orders Only Doctor Unassigned, [place] [facility] 1.840.114 350.1.13.10 4.2.7.2.686 [id number] [facility] 2022-08-08 00:00:00 2022-08-08 00:00:00 Telephone Veselka, Noman [facility] 1.2.840.114 350.1.13.10 4.2.7.2.686 [id number] [facility] 2022-05-06 13:30:00 2022-05-06 13:30:00 Outpatient NOMAN ARTHUR [facility] [id number] [facility] 2022-03-19 14:00:00 2022-03-19 14:00:00 Outpatient NOMAN ARTHUR [facility] [id number] [facility] 2022-03-16 15:30:00 2022-03-16 15:30:00 Outpatient NOMAN ARTHUR [facility] [id number] [facility] 2022-02-24 11:38:00 2022-02-25 15:25:00 Inpatient TRENTON BULLOCK [facility] [id number] FB 2021-12-17 13:00:00 2021-12-17 13:26:08 Outpatient NOMAN ARTHUR [facility] [id number] [facility] 2021-12-17 13:00:00 2021-12-17 13:26:08 Office Visit Leonides [facility] 1.2.840.114 350.1.13.10 4.2.7.2.686 [id number] [facility] 2021-12-09 00:00:00 2021-12-09 00:00:00 Refill Leonides [facility] 1.2.840.114 350.1.13.10 4.2.7.2.686 [id number] [facility] 2021-11-12 16:15:00 2021-11-12 16:30:00 Office Visit Noman Champion [facility] 1.2.840.114 350.1.13.10 4.2.7.2.686 [id number] [facility] 2021-11-12 16:15:00 2021-11-12 16:15:00 Outpatient NOMAN ARTHUR [facility] [id number] [facility] 2021-11-12 16:15:00 2021-11-12 16:15:00 Outpatient NOMAN ARTHUR [facility] [id number] [facility] 2021-11-11 09:15:00 2021-11-11 09:15:00 Outpatient NOMAN ARTHUR [facility] [id number] [facility] 2021-11-01 00:00:00 2021-11-01 00:00:[address] [facility] 1.2.840.114 350.1.13.10 4.2.7.2.686 [id number] [facility] 2021-10-10 10:00:00 2021-10-10 10:15:00 [employer] Visit Lab, Angel Champion [facility] 1.2.840.114 350.1.13.10 4.2.7.2.686 [id number] [facility] 2021-10-10 09:30:00 2021-10-10 10:00:[address] [facility] 1.2.840.114 350.1.13.10 4.2.7.2.686 [id number] [facility] 2021-10-10 09:30:00 2021-10-10 09:55:10 Outpatient NOMAN ARTHUR [facility] [id number] [facility] 2021-10-10 09:30:00 2021-10-10 09:30:00 Outpatient NOMAN ARTHUR [facility] [id number] [facility] 2021-10-03 00:00:00 2021-10-03 00:00:00 Pre Visit Outreach Phuong Larkin 1.284.114 350.1.13.10 4.2.7.2.686 [id number] [facility] 2021-07-21 16:15:00 2021-07-21 16:30:00 [employer] Visit 2, Adc Lab Petrona Perez [facility] BUILDING 1.2840.114 350.1.13.10 4.2.7.2.686 [id number] [facility] 2021-07-21 16:15:00 2021-07-21 16:15:00 Outpatient PETRONA PULLIAM [facility] [id number] [facility] 2021-07-21 15:30:00 2021-07-21 16:04:18 Office Visit Petrona Perez [facility] BUILDING 1.2840.114 350.1.13.10 4.2.7.2.686 [id number] [facility] 2021-07-21 15:30:00 2021-07-21 16:04:18 Outpatient PETRONA PULLIAM [facility] [id number] [facility] 2021-07-21 00:00:00 2021-07-21 00:00:00 Orders Only Doctor Unassigned, [place] [facility] 1.84.114 350.1.13.10 4.2.7.2.686 [id number] [facility] 2021-07-04 13:30:00 2021-07-04 13:30:00 Outpatient NOMAN ARTHUR [facility] [id number] [facility] 2021-04-17 00:00:00 2021-04-17 00:00:00 Letter (Out) Marifer Nataliya Drea [facility] 1.840.114 350.1.13.10 4.2.7.2.686 [id number] [facility] 2021-04-16 19:20:00 2021-04-16 19:38:01 Outpatient R REBECCA BARNETT [facility] [id number] [facility] 2021-04-16 19:20:00 2021-04-16 19:38:01 Urgent Care Rebecca Barnett Sebastien [facility] 1.2840.114 350.1.13.10 4.2.7.2.686 [id number] [facility] 2021-02-14 12:55:00 2021-02-14 21:50:00 Outpatient KHALIF ADAME [facility] [id number] [facility] 2020-06-17 00:00:00 2020-06-17 00:00:00 Telephone Deshpande [facility] 1.2840.114 350.1.13.10 4.2.7.2.686 [id number] [facility] 2020-06-17 00:00:00 2020-06-17 00:00:00 Telephone Deshpande [facility] 1.2840.114 350.1.13.10 4.2.7.2.686 [id number] 2020-05-28 00:00:00 2020-05-28 00:00:00 Patient Outreach Kai Whitley [facility] 1.2840.114 350.1.13.10 4.2.7.2.686 [id number] [facility] 2020-05-28 00:00:00 2020-05-28 00:00:00 Patient Outreach Kai Whitley [facility] 1.840.114 350.1.13.10 4.2.7.2.686 [id number] 2020-02-04 05:53:00 2020-02-04 05:53:00 Emergency [facility] [id number] [facility] 2019-12-02 14:31:28 2019-12-02 14:51:28 Laboratory Only Lab, [facility] 1.0.114 350.1.13.10 4.2.7.2.686 [id number] [facility] 2019-12-02 14:31:28 2019-12-02 14:51:28 Laboratory Only Lab, [facility] 1.0.114 350.1.13.10 4.2.7.2.686 [id number] 2019-12-02 14:20:00 2019-12-02 14:20:00 Outpatient Idalia [facility] [id number] [facility] 2019-12-02 00:00:00 2019-12-02 00:00:00 Letter (Out) Doctor Unassigned, [place] [facility] 1.2840.114 350.1.13.10 4.2.7.2.686 [id number] [facility] 2019-12-02 00:00:00 2019-12-02 00:00:00 Letter (Out) Doctor Unassigned, [place] [facility] 1.2840.114 350.1.13.10 4.2.7.2.686 [id number] 2019-11-21 08:20:00 2019-11-21 08:20:00 Outpatient Idalia YUN CAMILLA [facility] [id number] [facility] 2019-11-16 14:00:00 2019-11-16 14:00:00 Outpatient R YUN, [facility] [id number] [facility] 2019-11-03 08:56:18 2019-11-03 09:24:12 Office Visit Gary Del Toro [facility] 1.2.840.114 350.1.13.10 4.2.7.2.686 [id number] [facility] 2019-11-03 08:56:18 2019-11-03 09:24:12 Office Visit Gary Del Toro [facility] 1.2.840.114 350.1.13.10 4.2.7.2.686 [id number] 2019-11-03 09:00:00 2019-11-03 09:00:00 Outpatient R GARY DEL TORO [facility] [id number] [facility] 2019-11-03 00:00:00 2019-11-03 00:00:00 Orders Only Doctor Unassigned, [place] [facility] 1.2.840.114 350.1.13.10 4.2.7.2.686 [id number] [facility] 2019-09-29 10:00:00 2019-09-29 10:00:00 Outpatient CAMILLA DE LA CRUZ [facility] [id number] [facility] 2019-08-03 15:40:00 2019-08-03 15:40:00 Outpatient R [facility] [id number] [facility] 2019-05-29 00:00:00 2019-05-29 00:00:00 Telephone Margo Emmanuel [facility] 1.2840.114 350.1.13.10 4.2.7.2.686 [id number] [facility] 2019-04-25 08:10:00 2019-04-25 08:53:36 Outpatient MARGO ZHENG [facility] [id number] [facility] 2019-04-25 08:05:29 2019-04-25 08:53:36 Office Visit Margo Emmanuel [facility] 1.2.840.114 350.1.13.10 4.2.7.2.686 [id number] [facility] 2019-03-28 00:00:00 2019-03-28 00:00:00 Telephone Gary Del Toro [facility] 1.2.840.114 350.1.13.10 4.2.7.2.686 [id number] [facility] 2018-11-24 00:00:00 2018-11-24 00:00:00 Orders Only Doctor Unassigned, [place] [facility] 1.2.840.114 350.1.13.10 4.2.7.2.686 [id number] [facility] 2018-11-15 00:00:00 2018-11-15 00:00:00 Telephone Monica Corona [facility] 1.2.840.114 350.1.13.10 4.2.7.2.686 [id number] [facility] Results Test Description Test Time Test Comments Results Result Co mments Source [facility] [id number] 22:48:00* Test Item Value Reference Range Interpretation Comme nts POCT PREG (test code = 1605) Negative On board controls acceptable with C Line (test code = 3574) Yes POCT PREG LOT # (test code = 3575) POCT PREG TEST DATE (test code = 357) REAL (test code = REAL) accurate developme nt and interpretation of all internal controls Lab Interpretation (test code = 31057-2) Normal [facility] [id number] 22:48:00* Test Item Value Reference Range Interpretation Comme nts POCT PREG (test code = 1605) Negative On board controls acceptable with C Line (test code = 3574) Yes POCT PREG LOT # (test code = 3575) POCT PREG TEST DATE (test code = 3576) REAL (test code = REAL) accurate developme nt and interpretation of all internal controls Lab Interpretation (test code = 14803-6) Normal [facility] [id number] 22:48:00* Test Item Value Reference Range Interpretation Comme nts POCT PREG (test code = 1605) Negative On board controls acceptable with C Line (test code = 3574) Yes POCT PREG LOT # (test code = 3575) POCT PREG TEST DATE (test code = 3576) REAL (test code = REAL) accurate developme nt and interpretation of all internal controls Lab Interpretation (test code = 39346-2) Normal [facility] SARS-COV-2 ANTIGEN (BINAX NOW)2022-10-29 18:02:00* Test Item Value Reference Range Interpretation Comme nts POCT SARS-COV-2 ANTIGEN (santos t code = 96536-4) Not Detected Not Detected On board controls acceptable with C Line (test code = 3574) Yes [facility] MOLECULAR [id number] 17:54:35* Test Item Value Reference Range Interpretation Comme nts POCT Molecular Strep (test c ode = 27387-7) Negative Negative Lab Interpretation (test cod e = 26593-3) Normal [facility] MOLECULAR [id number] 17:54:34* Test Item Value Reference Range Interpretation Comme nts POCT Molecular FluA (test co de = 99740-6) Negative Negative POCT Molecular FluB (test co de = 14210-9) Negative Negative Lab Interpretation (test cod e = 47740-0) Normal [facility] Count Auto [id number] 06:35:00* Test Item Value Reference Range Interpretation Comme nts White Blood Count (test code = WBCT) 9.0 x10 3/uL 4.4-10.5 N Red Blood Count (test code = RBC) 4.98 x10 6/uL 3.75-5.20 N Hemoglobin (test code = HGBT) 12.8 g/dL 12.2-14.8 N Hematocrit (test code = HCTT) 40.9 % 36.5-44.4 N Mean Corpuscular Volume (santos t code = MCV) 82.10 fL 80.00-100.00 N Mean Corpuscular Hemoglobin (test code = MCH) 25.7 pg 27.0-32.5 L Mean Corpuscular HGB Conc (test code = MCHC) 31.30 g/dL 32.00-37.50 L RDW Coefficient of Variation (test code = RDWCV) 15.4 % 11.5-14.5 H Platelet Count (test code = PLTT) 182.0 x10 3/uL 140.0-440.0 N Mean Platelet Volume (test code = MPV) 12.8 fL Immature Granulocytes % (Aut o) (test code = IMMGRAN%) 0.3 % 0.0-5.0 N Neutrophils % (Auto) (test code = NE%) 67.9 % 36.0-70.0 N Lymphocytes % (Auto) (test code = LY%) 24.7 % 12.0-44.0 N Monocytes % (Auto) (test cod e = MO%) 5.7 % 0.0-11.0 N Eosinophils % (Auto) (test code = EO%) 1.2 % 0.0-7.0 N Basophils % (Auto) (test cod e = BA%) 0.2 % 0.0-2.0 N Immature Granulocytes # (Aut o) (test code = IMMGRAN#) 0.03 x10 3/uL Neutrophils # (Auto) (test code = NE#) 6.1 x10 3/uL 1.6-7.4 N Lymphocytes # (Auto) (test code = LY#) 2.22 x10 3/uL 0.50-4.60 N Monocytes # (Auto) (test cod e = MO#) 0.51 x10 3/uL 0.00-1.20 N Eosinophils # (Auto) (test code = EO#) 0.11 x10 3/uL 0.00-0.74 N Basophils # (Auto) (test cod e = BA#) 0.02 x10 3/uL 0.00-0.21 N nRBC Abs (test code = NRBCA) 0 nRBC Pct (test code = NRBCP) 0 % Comprehensive Metabolic [id number] 06:35:00* Test Item Value Reference Range Interpretation Comme nts SODIUM (test code = NA) 138.0 mmol/L 136.0-145.0 N Potassium,K (test code = K) 4.1 mmol/L 3.0-5.1 N Chloride (test code = CL) 104 mmol/L 98-107 N Carbon Dioxide (test code = CO2) 29 mmol/L 20-31 N Anion Gap (test code = GAP) 5 mmol/L 5-15 N Blood Urea Nitrogen (test co de = BUN) 7 mg/dL 9-23 L Creatinine (test code = CREATT) 0.50 mg/dL 0.55-1.02 L Creatinine Clr Calc Pharmacy (test code = CRCLPHA) 210.99 mL/min Estimated GFR ( [place] (test code = EGFRAA) > 60 mL/min/1.73m2 Estimated GFR (Non Afr Ameri ca (test code = EGFRNAA) > 60 mL/min/1.73m2 BUN/Creatinine Ratio (test c ode = BCRATIO) 14 ratio 10-20 N Glucose (test code = GLU) 97 mg/dL 74-106 N Osmolality,Calculated (test code = OSMOC) 283.5 Calcium (test code = CA) 9.1 mg/dL 8.3-10.6 N Bilirubin,Total (test code = BILIT) 0.3 mg/dL 0.2-1.1 N Aspartate Amino Transferase (test code = AST) 17 U/L 0-34 N Alanine Aminotransferase (te st code = ALT) 16 U/L 10-49 N Total Protein (test code = TP) 6.1 g/dL 5.7-8.2 N Albumin Level (test code = ALB) 4.5 g/dL 3.2-4.8 N Globulin (test code = GLOB) 1.6 mg/dL 2.3-3.5 L Albumin/Globulin Ratio (test code = AGRATIO) 2.8 ratio 0.8-2.0 H Alkaline Phosphatase (test c ode = ALP) 57 U/L 46-116 N Ethanol Lfunw0170-40-13 06:35:00* Test Item Value Reference Range Interpretation Comme nts Ethanol (test code = ETOH) < 3 mg/dL UA, Urinalysis Rflx Cult/Wicxe4656-28-81 06:35:00* Test Item Value Reference Range Interpretation Comme nts Color,Urine (test code = UCOL) Yellow Yellow Clarity,Urine (test code = UCLAR) Clear Clear PH,Urine (test code = UPH.XX) 7.0 5.5-8.5 Specific Jackson,Urine (test code = USG) 1.020 1.005-1.030 N [...] = ULEU) Small cells/uL Negative A Urine Sdamamkdhcq7558-12-42 06:35:00* Test Item Value Reference Range Interpretation Comme nts RBC,Urine (test code = URBC.XX) 0-2 /HPF None Seen WBC,Urine (test code = UWBC.XX) 0-5 /HPF None Seen Squamous Epithelial Cell,Uri ne (test code = USQEPI.XX) 0-5 /HPF None Seen Bacteria,Urine (test code = UBACT) Trace /HPF None Seen A Drug Screen,Xcxak0134-07-70 06:34:00* Test Item Value Reference Range Interpretation Comme nts PCP Phencyclidine Screen,Urine (test code = PCPU) Negative Negative Amphetamine Screen,Urine (test code = AMPU) Negative Negative Methadone Screen,Urine (test code = METHU) Negative Negative Opiate Screen,Urine (test code = UOPIS) Negative Negative Barbituates Screen,Urine (test code = BARBU) Negative Negative Benzodiazepines Screen,Urine (test code = UBENZS) Negative Negative Cocaine Screen,Urine (test code = UCOCS) Negative Negative Cannabinoid Screen,Urine (test code = UTHCS) Negative RESULTS TO F OLLOW Propoxyphene Screen, Urine (test code = UPROP) Negative Negative HCG, Urine Qual (LAB)2020-02-04 06:34:00* Test Item Value Reference Range Interpretation Comme nts HCG, Urine, Qual (test code = HCGU) Positive Negative Notes Date/Time Note Provider Source 2023-03-25 17:28:23 Michael/MZWAqdBEkA2gz0Zz Magul26roTlNm0 vkc45lxFXCb+0Us9y4ad1BVP/SDOxb2832 -01-18T17:28:23 Already spoke with patient twice and informed of all results, she is positive for Gonorrhea in her throat as well as vagina. + chlamydia to vagina along with BVEducated on safe sex practices and partner needs to be tested/treated 32793-7Tlrfoswuv encounter QcigVY3442-69-32Z45:31:45Telephone encounter NoteTXT1.2.840.693957.1.13.104.2.7 .2.984105|[id number] for patient bvvi14513-6QmjnATGWYKJQPNVUtqbuhqf d C-CDA narrative textUT64 Smith StreetHdziXry[id number] 31UHXXQMRRUKOIUKXEWBRDTY2570-26-61 T17:31:451.2.840.985311.1.72.3.15| 1.2.840.653233.1.13.104.2.7.2.7278 [id number] [facility] 2023-03-25 16:24:32 NuAUoOHXCHU52rccn93r ddzxTJCXpfmqt/ qJPl9OX1e2MEshA+1HvFyAa8khKPxk7254 -01-18T16:24:32 Routing to provider to review and advise.C. trachomatis Nucleic AcidNegative Positive Abnormal Negative Negative Positive Abnormal NegativeM. genitalium Nucleic AcidNegative NegativeN. gonorrhoeae Nucleic AcidNegative Positive Abnormal Negative Negative Negative 14801-7Lalrxfmhp encounter ApfpBQ2575-86-57A43:25:23Telephone encounter NoteTXT1.2.840.512137.1.13.104.2.7 .2.149231|[id number] for patient hkkq78060-6UbxyHGSNVUTGSGKKqacdfrc d C-CDA narrative [id number] M Natali RBUIO[id number] 20XFJHQEJJGQXZEJWAMQNLTZ4840-89-03 T16:25:231.2.840.280850.1.72.3.15| 1.2.840.301793.1.13.104.2.7.2.7278 [id number] Jerrica Palomo Natali RUBIO [facility] 2023-03-25 16:18:52 3hu87YdVFRgcYnW7UGVt 8tWH21bD0lHyni WW130zTTae6OcpLH4dAStK09hFQqED3265 -01-18T16:18:52 Milvia Harvey is a 22 year old femaleCalling requesting a call back regarding questions about recent testing done, please advise and return call [phone] (home) 43229-9Mgvzkhpxa encounter WgfgZK1791-62-81L80:20:32Telephone encounter NoteTXT1.2.840.448059.1.13.104.2.7 .2.864554|[id number] for patient kdbo48486-4OwysJVJKRJWXONMKjqiryae d C-CDA narrative [id number] M SaenzU[id number] 07ZQAXRTEXNZYVRPUZDLHBVW4485-43-31 T16:20:321.2.840.736640.1.72.3.15| 1.2.840.994226.1.13.104.2.7.2.7278 [id number] Mario Rodas [facility] 2023-03-25 16:00:00 xXUKqBQxtdvYfn/NfivA Yp3uGSM1S/ANVZ ctK2zQuc8pcy9FGmJHt3gJJTgIMpHP5033 -01-18T16:00:00 Images from the original note were not included.Venipuncture collection performed by clean technique on the left anticubitus. Total of 1 attempts were made. Slight pressure and a bandage/dressing were applied to the site(s). The patient experienced no complications. The following specimens were processed according to instructions and sent to [facility] laboratories per lab order on today:LT BLUESST 4REDLAVPPTDK GREEN (LiHep)DK GREEN (SodH)GRAYDK BLUE (K2)DK BLUE (S)ACDBlood CultureNIPT/NTD 02258-1Qsffi QdxzMV1667-81-15J38:09:48Nurse NoteTXT1.2.840.720537.1.13.104.2.7 .2.114138|[id number] for patient dcbo61707-8Gvbay NoteLNNARRATIVEFormatted C-CDA narrative textUT[address] Pxye[id number] 99APYQGTIKEYWHILQENIPFJS9845-61-98 T16:09:481.2.840.024727.1.72.3.15| 1.2.840.932137.1.13.104.2.7.2.7278 [id number] [facility] 2023-03-25 15:24:19 beY72+NRIqbOkFyiHML9 4jZ9J/tK6hQ7dx xsJork8K0Sc4scoObB0ucT70IDDdvi5990 -01-18T15:24:19 Reviewed results with patient, + gonorrhea and ChlamydiaMedication sent to pharmacy on file. Educated on safe sex and partner need to be tested/treated 58549-2Fbkyzsiym encounter QqfoSF0750-27-31T48:27:52Telephone encounter NoteTXT1.2.840.337657.1.13.104.2.7 .2.483295|[id number] for patient jbef51407-7QlqrFXZDZHNKWECTaeprwle d C-CDA narrative text[id number] 57TTYLRHLRXNTABTSWCBQEEI1731-36-07 T15:27:521.2.840.627808.1.72.3.15| 1.2.840.548164.1.13.104.2.7.2.7278 [id number] [facility] 2023-03-25 14:31:30 LPF/VGeb8cxkat0mr3wJ gGx+yPClhvmnsR Ya3uhDmw/dgedWwv5Pz93f0X/e/tRs7491T14:31:30 Pt notified. 92185-6Dkaudqldl encounter BqvjOK3201-95-53J97:32:26Telephone encounter NoteTXT1.2.840.615554.1.13.104.2.7 .2.656158|[id number] for patient iydf53839-8DhitPODZNCHIDFSFurvoepf d C-CDA narrative [id number] ADAIR[id number] 00LIJJSBUZKEPDMCNFQKTFJD5017-57-47 T14:32:261.2.840.032190.1.72.3.15| 1.2.840.094675.1.13.104.2.7.2.7278 [id number] Jerrica Hurst RN [facility] 2023-03-25 14:05:48 BlO2J6E0PVLItNGjUKWL Diaz//e5UdvVaVSm i5UpTF7jxAxreO8vXckePTEAb6Y6Lz6385 -01-18T14:05:48 Reviewed vaginal swab results, please inform patient that she is positive for BV and I have sent over antibiotics to treat that. No alcohol while taking medicationComponentRef Range & Units 1 d ago 1 yr agoTrichomonas vaginalisNegative Negative NegativeCandida speciesNegative Negative NegativeCandida glabrataNegative Negative NegativeBacterial VaginosisNegative Positive Abnormal 96561-3Kkbbeaxsh encounter OholJW0284-76-14J59:07:18Telephone encounter NoteTXT1.2.840.158998.1.13.104.2.7 .2.098887|[id number] for patient xdfk36418-9QekrWEGDGXZANJVHcfvjrdb d C-CDA narrative textUT[address] KevxJkystoayvYmzewetzfOXFH64088359 72VXKKDZDUJJVFEQCELAQQXZ4365-37-55 T14:07:181.2.840.411841.1.72.3.15| 1.2.840.780015.1.13.104.2.7.2.7278 [id number] [facility]"
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
[2023-04-03 20:31] VITALS: BP 122/67; TEMP 98; O2SAT 99
== END ==
LOC: ER 14:47
DX: T74.21XA Adult sexual abuse, confirmed, initial encounter (principal); Z88.8 Allergy status to other drugs, medicaments and biological substances
CPT/HCPCS: Q0162

== ENCOUNTER 2024-03-01 22:08 | Emergency (ER) | payer BC, OTHER ==
[2024-03-01 23:02] LABS: Absolute Eosinophils 0.1 K/uL (0-0.5); Absolute Lymphocytes (CBC) 2.5 K/uL (0.7-4.9); Absolute Monocytes 0.5 K/uL (0.1-1.3); Absolute Neutrophil 3.6 K/uL (1.8-8.0); Basophils % 0.4 % (0-1.3); Hematocrit 35.2 % (36.0-45.0); Hemoglobin 11.4 g/dL (12.0-15.0); Lymphocytes % 37.1 % (15.3-44.8); MCH 23.8 pg (27.0-35.0); MCHC 32.5 g/dL (32.0-36.0); MCV 73.3 fL (80-100); MPV 10.1 fL (7.6-11.3); Monocytes % 7.4 % (3.3-12.3); Neutrophils % 53.1 % (41.7-73.7); Nucleated Red Blood Cells % 0.1 % (0-0); Platelets 205 thou/uL (152-406); Red Cell Distribution Width 17.5 % (12.1-15.2)
[2024-03-01 23:15] LABS: ALT/SGPT 22 U/L (13-56); AST/SGOT 19 U/L (15-37); Albumin 3.3 g/dL (3.4-5.0); Alkaline Phosphatase 67 U/L (45-117); Anion Gap 4.7 mEq/L (5.0-15.0); BUN Blood Urea Nitrogen 13 mg/dL (7-18); Bicarbonate 30 mEq/L (21-32); Bilirubin Total 0.2 mg/dL (0.2-1.0); Globulin 3.2 g/dL (2.3-3.5); Glomerular Filtration Rate 121 ml/min (=/>90); Glucose Level 95 mg/dL (74-106); Potassium 3.7 mEq/L (3.5-5.1); Protein, Total 6.5 g/dL (6.4-8.2); Sodium Level 142 mEq/L (136-145)
[2024-03-01 23:16] LABS: Bilirubin Direct < 0.2 mg/dL (0-0.2); Troponin High Sensitivity < 3.0 pg/mL (<58.9)
[2024-03-01 23:40] LABS: Thyroid Stimulating Hormone 1.59 uIU/mL (0.358-3.740)
[2024-03-02 01:07] LABS: Specific Gravity > 1.030 (1.005-1.030)
--- NOTE | 2024-03-02 03:01 | ER ---
Nurse's Notes [facility] Name: Milvia Murdock Age: 23 yrs Sex: Female : 2000 Arrival Date: 03/01/2024 Time: 22:08 Bed 12 Private MD: Diagnosis: Chest pain, unspecified;Non cardiac chest pain Presentation: 03/01 22:16 Chief complaint: Patient states: left sided chest pain and upper abdominal since this lg3 afternoon and worsening. Coronavirus screen: Client denies travel out of the [place] in the last 14 days. At this time, the client does not indicate any symptoms associated with coronavirus-19. Ebola Screen: No symptoms or risks identified at this time. Initial Sepsis Screen: Does the patient meet any 2 criteria? No. Patient's initial sepsis screen is negative. Does the patient have a suspected source of infection? No. Patient's initial sepsis screen is negative. Risk Assessment: Do you want to hurt yourself or someone else? Patient reports no desire to harm self or others. Onset of symptoms was March 01, 2024. 22:16 Method Of Arrival: Ambulatory lg3 22:16 Acuity: KULDEEP 3 lg3 Triage Assessment: 22:18 General: Appears in no apparent distress. comfortable, Behavior is calm, cooperative. lg3 Pain: Complains of pain in chest and abdomen. EENT: No deficits noted. No signs and/or symptoms were reported regarding the EENT system. Neuro: No deficits noted. Thomas Agitation-Sedation Scale (RASS): 0 - Alert and Calm Level of Consciousness is awake, alert, obeys commands, Oriented to person, place, time, situation. Cardiovascular: Reports chest pain, Heart tones S1 S2 present Capillary refill < 3 seconds Clubbing of nail beds is absent JVD is absent Patient's skin is warm and dry. Respiratory: No deficits noted. Airway is patent Respiratory effort is even, unlabored, Respiratory pattern is regular, symmetrical. GI: No deficits noted. Abdomen is round non-distended, Bowel sounds present X 4 quads. Reports upper abdominal pain, cramping. : No signs and/or symptoms were reported regarding the genitourinary system. Derm: No deficits noted. No signs and/or symptoms reported regarding the dermatologic system. Skin is intact, is healthy with good turgor, Skin is dry, Skin is normal, Skin temperature is warm. Musculoskeletal: No deficits noted. No signs and/or symptoms reported regarding the musculoskeletal system. Circulation, motion, and sensation intact. Range of motion: intact in all extremities. 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 - Infectious Disease History:: Denies. - Social history:: Smoking status: Reported history of juuling and/or vaping. Patient/guardian denies using alcohol, street drugs. - Family history:: not pertinent. Screenin:16 [facility] ED Fall Risk Assessment (Adult) History of falling in the last 3 months, lg3 including since admission No falls in past 3 months (0 pts) Confusion or Disorientation No (0 pts) Intoxicated or Sedated No (0 pts) Impaired Gait No (0 pts) Mobility Assist Device Used No (0 pt) Altered Elimination No (0 pt) Score/Fall Risk Level 0 - 2 = Low Risk Oriented to surroundings, Maintained a safe environment, Educated pt \T\ family on fall prevention, incl call for assistance when getting out of bed, Assessed \T\ reinforced patient's understanding of fall precautions. Abuse screen: Denies threats or abuse. Denies injuries from another. Nutritional screening: No deficits noted. Tuberculosis screening: No symptoms or risk factors identified. Assessment: 22:16 General: see triage assessment. lg3 22:16 Pain: Complains of pain in chest and abdomen Pain does not radiate. Pain began 4 hours lg3 ago. 03/02 00:01 Reassessment: Patient appears in no apparent distress at this time. No changes from lg3 previously documented assessment. Patient and/or family updated on plan of care and expected duration. Pain level reassessed. Patient is alert, oriented x 3, equal unlabored respirations, skin warm/dry/pink. 02:59 Reassessment: Patient appears in no apparent distress at this time. No changes from lg3 previously documented assessment. Patient and/or family updated on plan of care and expected duration. Pain level reassessed. Patient is alert, oriented x 3, equal unlabored respirations, skin warm/dry/pink. Patient states feeling better. Patient states symptoms have improved. Vital Signs: 03/01 22:16 BP 111 / 70; Pulse 71; Resp 17 S; Temp 97.8(O); Pulse Ox 100% on R/A; Weight 79.38 kg lg3 (R); Height 5 ft. 7 in. (R); Pain /; 03/02 02:59 BP 117 / 74; Pulse 68; Resp 17 S; Temp 97.4(O); Pulse Ox 100% on R/A; Pain 2/10; lg3 03/01 22:16 Body Mass Index 27.41 (79.38 kg, 170.18 cm) lg3 03/01 22:16 Pain Scale: Adult lg3 03/02 02:59 Pain Scale: Adult lg3 [place] Coma Score: 21:57 Eye Response: spontaneous(4). Motor Response: obeys commands(6). Verbal Response: sp4 oriented(5). Total: 15. ED Course: 03/01 22:09 Patient arrived in ED. gm2 22:16 Patient has correct armband on for positive identification. Placed in gown. Bed in low lg3 position. Call light in reach. Side rails up X 1. Client placed on continuous cardiac and pulse oximetry monitoring. NIBP monitoring applied. night monitor on. Door closed. Noise minimized. Warm blanket given. Pillow given. Family accompanied patient. 22:16 Patient maintains SpO2 saturation greater than 95% on room air. lg3 22:18 Rosendo Mckeon MD is Attending Physician. sp4 22:18 Triage completed. lg3 22:18 Arm band placed on right wrist. lg3 22:31 EKG done, by ct scan special procedures technologist. af3 22:39 Inserted saline lock: 20 gauge in right antecubital area, using aseptic technique. af3 Blood collected. Flushed with 10 mL NS. 22:48 Basic Metabolic Panel Sent. lg3 22:48 CBC with Diff Sent. lg3 22:48 LFT's Sent. lg3 22:48 Troponin HS Sent. lg3 23:41 Chest Pa And Lat (2 Views) XRAY In Process Unspecified. EDMS 03/02 02:59 Da Casey MD is Referral Physician. sp4 02:59 No provider procedures requiring assistance completed. IV discontinued, intact, lg3 bleeding controlled, No redness/swelling at site. Pressure dressing applied. Administered Medications: No medications were administered Medication: 02:59 VIS not applicable for this client. lg3 Outcome: 03:00 Discharge ordered by MD. sp4 03:02 Discharged to home ambulatory, lg3 03:02 Condition: stable 03:02 Discharge instructions given to patient, Instructed on discharge instructions, follow up and referral plans. Demonstrated understanding of instructions, follow-up care, 03:02 Patient left the ED. lg3 Signatures: Dispatcher [employer] Alejandra Yang RN RN lg3 Rosendo Mckeon MD MD sp4 Lexie Medina gm2 Natividad Burrows af3
--- NOTE | 2024-03-02 03:01 | EDPHYS ---
Physician Documentation [facility] Name: Milvia Murdock Age: 23 yrs Sex: Female : 2000 Arrival Date: 03/01/2024 Time: 22:08 Bed 12 Private MD: ED Physician Rosendo Mckeon HPI: 03/01 22:18 This 23 yrs old Female presents to ER via Unassigned with complaints of Chest sp4 Pain. 03/02 21:51 23-year-old female presents with complaint of chest pain. Non exertional chest pain . . 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 - Infectious Disease History:: Denies. - Social history:: Smoking status: Reported history of juuling and/or vaping. Patient/guardian denies using alcohol, street drugs. - Family history:: not pertinent. ROS: 03/02 21:51 Constitutional: Negative for fever, chills, and weight loss, positive for chest pain sp4 All other systems are negative, Exam: 21:51 Constitutional: This is a well developed, well nourished patient who is awake, alert, sp4 and in no acute distress. Head/Face: Normocephalic, atraumatic. Eyes: Pupils equal round and reactive to light, extra-ocular motions intact. Lids and lashes normal. Conjunctiva and sclera are not injected. Cornea within normal limits. Periorbital areas with no swelling, redness, or edema. ENT: Nares patent. No nasal discharge, no septal abnormalities noted. Tympanic membranes are normal and external auditory canals are clear. Oropharynx with no redness, swelling, or masses, exudates, or evidence of obstruction, uvula midline. Mucous membranes moist. Neck: Trachea midline, no thyromegaly or masses palpated, and no cervical lymphadenopathy. Supple, full range of motion without nuchal rigidity, or vertebral point tenderness. Chest/axilla: Normal chest wall appearance and motion. Nontender with no deformity. No lesions are appreciated. Cardiovascular: Regular rate and rhythm with a normal S1 and S2. No gallops, murmurs, or rubs. Normal PMI, no JVD. No pulse deficits. Respiratory: Lungs have equal breath sounds bilaterally, clear to auscultation and percussion. No rales, rhonchi or wheezes noted. No increased work of breathing, no retractions or nasal flaring. Abdomen/GI: Soft, with normal bowel sounds. No distension or tympany. No guarding or rebound. No evidence of tenderness throughout. Back: No spinal tenderness. No costovertebral tenderness. Skin: Warm, dry with normal turgor. Normal color with no rashes, no lesions, and no evidence of cellulitis. MS/ Extremity: Pulses equal, no cyanosis. Neurovascular intact. Full, normal range of motion. Neuro: Awake and alert, GCS 15, oriented to person, place, time, and situation. Cranial nerves II-XII grossly intact. Motor strength 5/5 in all extremities. Sensory grossly intact. Psych: Awake, alert, with orientation to person, place and time. Behavior, mood, and affect are within normal limits 21:57 ECG was reviewed by the Attending Physician. EKG at 2227 sinus bradycardia rate 56 sp4 Vital Signs: 03/01 22:16 BP 111 / 70; Pulse 71; Resp 17 S; Temp 97.8(O); Pulse Ox 100% on R/A; Weight 79.38 kg lg3 (R); Height 5 ft. 7 in. (R); Pain 5/10; 03/02 02:59 BP 117 / 74; Pulse 68; Resp 17 S; Temp 97.4(O); Pulse Ox 100% on R/A; Pain 2/10; lg3 03/01 22:16 Body Mass Index 27.41 (79.38 kg, 170.18 cm) lg3 03/01 22:16 Pain Scale: Adult lg3 03/02 02:59 Pain Scale: Adult lg3 [place] Coma Score: 21:57 Eye Response: spontaneous(4). Motor Response: obeys commands(6). Verbal Response: sp4 oriented(5). Total: 15. MDM: 03/01 22:27 Differential diagnosis: acute pericarditis, chest wall pain, esophagitis, gastritis. sp4 HEART Score: History: Slightly Suspicious (0), ECG: Normal (0), Age: < or = 45 years (0), Risk Factors: No Risk Factors Known (0), Troponin: < or = 1 x Normal Limit (0), Total Score = 0. Data reviewed: vital signs, nurses notes, lab test result(s), EKG, radiologic studies, plain films. Consideration of Admission/Observation Escalation of care including admission/observation considered. ED course: Workup is normal today. Patient stable for discharge home. Will recommend follow-up with equipment tech for recurrent chest pains. 03/02 02:36 Medical Screening Exam initiated sp4 02:59 ED course: TIME OF STUDY: 03/01/2024 10:57 PM CHOIR DIRECTOR REASON FOR EXAM: CHEST PAIN sp4 COMPARISON: None. FINDINGS: PA and lateral chest radiographs, 2 views, were obtained. Lungs: Normal lung volume. No mass, or consolidation. Normal pulmonary vascularity.. Pleura: No pneumothorax. There is no pleural effusion. Heart and Mediastinum: Normal cardiomediastinal silhouette and great vessels.. Bones: No acute bony abnormality.. IMPRESSION: 1. No acute cardiopulmonary process.. 03/01 22:19 Order name: Test, Urine; Complete Time: 02:55 4 03/01 22:19 Order name: Basic Metabolic Panel; Complete Time: 02:55 [facility] 03/01 22:19 Order name: CBC with Diff; Complete Time: 02:55 [facility] 03/01 22:19 Order name: LFT's; Complete Time: 02:55 [facility] 03/01 22:19 Order name: Troponin HS; Complete Time: 02:55 [facility] 03/01 22:57 Order name: TSH; Complete Time: 02:55 [facility] 03/01 22:57 Order name: T4 Free; Complete Time: 02:55 [facility] 03/01 22:57 Order name: Chest Pa And Lat (2 Views) XRAY [facility] 03/01 22:19 Order name: Cardiac monitoring; Complete Time: 22:31 [facility] 03/01 22:19 Order name: EKG - Nurse/Tech; Complete Time: 22:31 [facility] 03/01 22:19 Order name: IV Saline Lock; Complete Time: 22:39 sp4 03/01 22:19 Order name: Labs collected and sent; Complete Time: 22:39 sp4 03/01 22:19 Order name: O2 Per Protocol; Complete Time: 22:31 sp4 03/01 22:19 Order name: O2 Sat Monitoring; Complete Time: 22:31 sp4 EC/25 22:27 Rate is 56 beats/min. Rhythm is regular, Sinus bradycardia. QRS [place] is Normal. IN sp4 interval is normal. QRS interval is normal. QT interval is normal. No Q waves. T waves are Normal. No ST changes noted. Clinical impression: No evidence of ischemia. Interpreted by me. Reviewed by me. Administered Medications: No medications were administered Disposition: 03/02 21:59 Chart complete. sp4 Disposition Summary: 03/02/24 03:00 Discharge Ordered Problem: new sp4 Symptoms: have improved sp4 Condition: Stable sp4 Diagnosis - Chest pain, unspecified sp4 - Non cardiac chest pain sp4 Followup: sp4 - With: Da Casey MD - When: 7 - 10 days - Reason: Recheck today's complaints Discharge Instructions: - Discharge Summary Sheet sp4 - Nonspecific Chest Pain, Adult, [id number] sp4 Forms: - Patient Portal Instructions sp4 Signatures: Dispatcher [employer] Alejandra Yang RN RN lg3 Rosendo Mckeon MD MD sp4 Corrections: (The following items were deleted from the chart) 03/01 22:19 22:19 Test, Urine+UC.LAB.BRZ ordered. EDMS EDMS 22:19 22:19 BASIC METABOLIC PANEL+C.LAB.BRZ ordered. EDMS EDMS 22:19 22:19 CBC+H.LAB.BRZ ordered. EDMS EDMS 22:19 22:19 HEPATIC FUNCTION+C.LAB.BRZ ordered. EDMS EDMS 22:19 22:19 Troponin High Sensitivity+C.LAB.BRZ ordered. EDMS EDMS
[2024-03-02 03:12] VITALS: O2SAT 100
[2024-03-02 03:18] VITALS: BP 117/74; TEMP 97.4
--- NOTE | 2024-03-02 06:17 | RAD REPORT ---
TIME OF STUDY: 03/01/2024 10:57 PM BRANCH DIRECTOR REASON FOR EXAM: CHEST PAIN COMPARISON: None. FINDINGS: PA and lateral chest radiographs, 2 views, were obtained. Lungs: Normal lung volume. No mass, or consolidation. Normal pulmonary vascularity.. Pleura: No pneumothorax. There is no pleural effusion. Heart and Mediastinum: Normal cardiomediastinal silhouette and great vessels.. Bones: No acute bony abnormality.. IMPRESSION: 1. No acute cardiopulmonary process. Electronically signed by: Bret Suazo MD 03/01/2024 11:49 PM BRANCH DIRECTOR Due to temporary technical issues with the PACS/MDdatacor reporting system, reports are being ismael d by the in-house radiologist without review as a courtesy to ensure prompt reporting the interpreting radiologist is fully responsible for the content of the report. Transcribed Date/Time: 03/02/2024 6:17 AM
--- NOTE | 2024-03-03 13:40 | EKG ---
Test Date: 2024-03-01 Test Time: 22:27:51 Dynamometer Repairer: AF MEASUREMENT RESULTS: Intervals: Rate: 56 AK: 146 QRSD: 96 QT: 436 QTc: 420 Powers: P: 61 AK: 146 QRS: 77 T: 59 INTERPRETIVE STATEMENTS: Sinus bradycardia Otherwise normal ECG Compared to ECG 12/14/2022 16:39:37 Sinus rhythm no longer present Electronically Signed On 03-03-24 13:36:46 POLYMERIZATION KETTLE OPERATOR by Da Casey
== END 2024-03-02 03:02 | disposition home or self-care (01) ==
LOC: ER 22:08
DX: R07.89 Other chest pain (principal); F41.8 Other specified anxiety disorders
CPT/HCPCS: 36415; 71046; 80048; 80076; 81025; 84439; 84443; 84484; 85025; 93005; 99284

== ENCOUNTER 2024-03-22 14:43 | Emergency (ER) | payer BC, OTHER ==
[2024-03-22 15:41] LABS: Absolute Eosinophils 0.1 K/uL (0-0.5); Absolute Lymphocytes (CBC) 1.9 K/uL (0.7-4.9); Absolute Monocytes 0.4 K/uL (0.1-1.3); Absolute Neutrophil 6.9 K/uL (1.8-8.0); Basophils % 0.4 % (0-1.3); Hematocrit 39.2 % (36.0-45.0); Lymphocytes % 20.6 % (15.3-44.8); MCH 24.3 pg (27.0-35.0); MCHC 33.3 g/dL (32.0-36.0); MCV 73.1 fL (80-100); MPV 10.8 fL (7.6-11.3); Monocytes % 4.4 % (3.3-12.3); Neutrophils % 73.6 % (41.7-73.7); Platelets 205 thou/uL (152-406); RBC Red Blood Cell Count 5.36 M/uL (3.86-4.86); Red Cell Distribution Width 17.4 % (12.1-15.2)
[2024-03-22 15:59] LABS: Anion Gap 6.5 mEq/L (5.0-15.0); Potassium 3.5 mEq/L (3.5-5.1)
--- NOTE | 2024-03-22 16:24 | ER ---
Nurse's Notes [facility] Name: Milvia Murdock Age: 23 yrs Sex: Female : 2000 Arrival Date: 03/22/2024 Time: 14:43 Bed 2 Private MD: Diagnosis: Complete or unspecified spontaneous without complication Presentation: 03/22 14:48 Chief complaint: Patient states: "I've had vaginal spotting for the past 2 days but aa5 today there was more blood when I wiped". pt also reports abdominal cramping and reports being approximately 6 weeks . Coronavirus screen: At this time, the client does not indicate any symptoms associated with coronavirus-19. Ebola Screen: Patient denies travel to an Ebola-affected area in the 21 days before illness onset. Initial Sepsis Screen: Does the patient meet any 2 criteria? No. Patient's initial sepsis screen is negative. Does the patient have a suspected source of infection? No. Patient's initial sepsis screen is negative. Risk Assessment: Do you want to hurt yourself or someone else? Patient reports no desire to harm self or others. Onset of symptoms was March 22, 2024. 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 - Infectious Disease History:: Denies. - Social history:: Smoking status: Reported history of juuling and/or vaping. Screenin:38 [facility] ED Fall Risk Assessment (Adult) History of falling in the last 3 months, jb4 including since admission No falls in past 3 months (0 pts) Confusion or Disorientation No (0 pts) Intoxicated or Sedated No (0 pts) Impaired Gait No (0 pts) Mobility Assist Device Used No (0 pt) Altered Elimination No (0 pt) Score/Fall Risk Level 0 - 2 = Low Risk Oriented to surroundings, Maintained a safe environment. Abuse screen: Denies threats or abuse. Nutritional screening: No deficits noted. Tuberculosis screening: No symptoms or risk factors identified. Assessment: 15:25 General: Appears in no apparent distress. comfortable, Behavior is calm, cooperative, jb4 appropriate for age. Pain: Complains of pain in pelvis Pain does not radiate. Pain currently is 3 out of 10 on a pain scale. Quality of pain is described as crampy. Neuro: Level of Consciousness is awake, alert, obeys commands, Oriented to person, place, time, situation. Cardiovascular: Patient's skin is warm and dry. Respiratory: Airway is patent Respiratory effort is even, unlabored, Respiratory pattern is regular, symmetrical. : Reports vaginal bleeding that is brown, with clots, moderate flow. Derm: Skin is intact, Skin is pink, warm \\T\\ dry. Musculoskeletal: Circulation, motion, and sensation intact. Range of motion: intact in all extremities. 16:33 Reassessment: Patient appears in no apparent distress at this time. Patient and/or jb4 family updated on plan of care and expected duration. Pain level reassessed. Patient is alert, oriented x 3, equal unlabored respirations, skin warm/dry/pink. Vital Signs: 14:48 BP 114 / 67; Pulse 84; Resp 18 S; Temp 97.7(TE); Pulse Ox 100% on R/A; Weight 77.11 kg aa5 (R); Height 5 ft. 7 in. (R); 14:48 Body Mass Index 26.63 (77.11 kg, 170.18 cm) aa5 ED Course: 14:46 Patient arrived in ED. aa5 14:48 Arm band placed on. aa5 14:49 Triage completed. aa5 14:49 Orlando Mota MD is Attending Physician. sp3 14:55 Danna Tran, RN is Primary Nurse. ph 15:15 US Transvaginal Ob In Process Unspecified. EDMS 15:25 No provider procedures requiring assistance completed. Inserted saline lock: 20 gauge jb4 in left antecubital area, using aseptic technique. Blood collected. 15:38 Patient has correct armband on for positive identification. Bed in low position. Call jb4 light in reach. Side rails up X 1. Provided Education on: plan of care. 15:39 Quantitative Hcg Sent. jb4 15:39 CBC with Diff Sent. jb4 15:39 Basic Metabolic Panel Sent. jb4 16:33 IV discontinued, intact, bleeding controlled, No redness/swelling at site. Pressure jb4 dressing applied. Administered Medications: No medications were administered Medication: 15:42 VIS not applicable for this client. ph Outcome: 16:24 Discharge ordered by . sp3 16:33 Discharged to home ambulatory, jb4 16:33 Condition: stable 16:33 Discharge instructions given to patient, Instructed on discharge instructions, follow up and referral plans. 16:35 Patient left the ED. jb4 Signatures: Dispatcher [employer] EDZoya Weinstein RN RN aa5 Danna Tran RN RN Sanya Tipton RN RN jb4 Orlando Mota MD MD sp3
--- NOTE | 2024-03-22 16:24 | EDPHYS ---
Physician Documentation [facility] Name: Milvia Murdock Age: 23 yrs Sex: Female : 2000 Arrival Date: 03/22/2024 Time: 14:43 Bed 2 Private MD: ED Physician Orlando Mota HPI: 03/22 15:05 This 23 yrs old Female presents to ER via Ambulatory with complaints of sp3 Vaginal Bleeding, + Preg <12wks, Abdominal Cramping. 15:05 23-year-old female G5, at less than 6 weeks presents with abdominal cramping, sp3 vaginal bleeding and concerns of possible miscarriage. No other signs or symptoms reported including headache, chest pain, shortness of breath, bleeding anywhere else, rash, syncope or any other signs or symptoms on ROS at this time.. 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 - Infectious Disease History:: Denies. - Social history:: Smoking status: Reported history of juuling and/or vaping. ROS: 15:05 Constitutional: Negative for fever, chills, and weight loss, Eyes: Negative for injury, sp3 pain, redness, and discharge, Neck: Negative for injury, pain, and swelling, Cardiovascular: Negative for chest pain, palpitations, and edema, Respiratory: Negative for shortness of breath, cough, wheezing, and pleuritic chest pain, Abdomen/GI: Negative for abdominal pain, nausea, vomiting, diarrhea, and constipation, Back: Negative for injury and pain, MS/Extremity: Negative for injury and deformity, Skin: Negative for injury, rash, and discoloration, Neuro: Negative for headache, weakness, numbness, tingling, and seizure, Psych: Negative for depression, anxiety, suicide ideation, homicidal ideation, and hallucinations, Allergy/Immunology: Negative for hives, rash, and allergies, Endocrine: Negative for neck swelling, polydipsia, polyuria, polyphagia, and marked weight changes, Hematologic/Lymphatic: Negative for swollen nodes, abnormal bleeding, and unusual bruising, 15:05 All other systems are negative, Exam: 15:06 Constitutional: This is a well developed, well nourished patient who is awake, alert, sp3 and in no acute distress. Head/Face: Normocephalic, atraumatic. Eyes: Pupils equal round and reactive to light, extra-ocular motions intact. Lids and lashes normal. Conjunctiva and sclera are non-icteric and not injected. Cornea within normal limits. Periorbital areas with no swelling, redness, or edema. Neck: Trachea midline, no thyromegaly or masses palpated, and no cervical lymphadenopathy. Supple, full range of motion without nuchal rigidity, or vertebral point tenderness. No Meningismus. Chest/axilla: Normal chest wall appearance and motion. Nontender with no deformity. No lesions are appreciated. Cardiovascular: Regular rate and rhythm with a normal S1 and S2. No gallops, murmurs, or rubs. Normal PMI, no JVD. No pulse deficits. Respiratory: Lungs have equal breath sounds bilaterally, clear to auscultation and percussion. No rales, rhonchi or wheezes noted. No increased work of breathing, no retractions or nasal flaring. Abdomen/GI: Soft, non-tender, with normal bowel sounds. No distension or tympany. No guarding or rebound. No evidence of tenderness throughout. Back: No spinal tenderness. No costovertebral tenderness. Full range of motion. Skin: Warm, dry with normal turgor. Normal color with no rashes, no lesions, and no evidence of cellulitis. MS/ Extremity: Pulses equal, no cyanosis. Neurovascular intact. Full, normal range of motion. Neuro: Awake and alert, GCS 15, oriented to person, place, time, and situation. Cranial nerves II-XII grossly intact. Motor strength 5/5 in all extremities. Sensory grossly intact. Cerebellar exam normal. Normal gait. Psych: Awake, alert, with orientation to person, place and time. Behavior, mood, and affect are within normal limits. 15:06 : Vaginal bleeding noted consistent with menses flow in terms of amount. Ultrasound at bedside and will perform internal exam therefore bimanual exam deferred., Vital Signs: 14:48 BP 114 / 67; Pulse 84; Resp 18 S; Temp 97.7(TE); Pulse Ox 100% on R/A; Weight 77.11 kg aa5 (R); Height 5 ft. 7 in. (R); 14:48 Body Mass Index 26.63 (77.11 kg, 170.18 cm) aa5 MDM: 14:49 Medical Screening Exam initiated sp3 15:06 Data reviewed: vital signs, nurses notes, old medical records, lab test result(s), sp3 radiologic studies. ED course: 23-year-old female at 6 weeks or less with abdominal cramping and bleeding. Will obtain ultrasound, quant hCG and general labs. Vital signs are normal. Differential diagnosis includes missed AB, miscarriage, threatened AB, nonpregnancy bleeding though unlikely. Disposition pending workup and patient course. Patient has an OB at [facility] for follow-up.. 16:23 ED course: Quant hCG at 3. Ultrasound demonstrates no IUP or other abnormality with sp3 flow in bilateral ovaries. Blood work normal and blood type is a positive. I believe patient has had a complete miscarriage and I will queen's counsel her so. Follow-up with primary OB.. 16:26 ED course: Patient counseled and understands importance of follow-up for repeat pelvic sp3 exam with her technical customer support specialist.. 03/22 14:49 Order name: Abo/rh Typing; Complete Time: 16:20 sp3 03/22 14:49 Order name: Basic Metabolic Panel; Complete Time: 16:20 sp3 03/22 14:49 Order name: CBC with Diff; Complete Time: 16:20 sp3 03/22 14:49 Order name: Quantitative Hcg; Complete Time: 16:20 sp3 03/22 14:49 Order name: US Transvaginal Ob sp3 03/22 14:49 Order name: IV Saline Lock; Complete Time: 15:39 sp3 03/22 14:49 Order name: Labs collected and sent; Complete Time: 15:39 sp3 03/22 14:49 Order name: NPO; Complete Time: 15:39 sp3 Administered Medications: No medications were administered Disposition Summary: 03/22/24 16:24 Discharge Ordered Notes: Location: Home sp3 Condition: Stable sp3 Diagnosis - Complete or unspecified spontaneous without complication sp3 Followup: sp3 - With: Private Physician - When: Upon discharge from the Emergency Department - Reason: Continuance of care Discharge Instructions: - Discharge Summary Sheet sp3 - Miscarriage sp3 Forms: - Medication Reconciliation Form sp3 - Antibiotic Education sp3 - Prescription Opioid Use sp3 - Patient Portal Instructions sp3 - Leadership Thank You Letter sp3 Signatures: Dispatcher [employer] EDZoya Weinstein RN RN aa5 Orlando Mota MD MD sp3 Corrections: (The following items were deleted from the chart) 14:50 14:50 Transvaginal Ob+US.RAD.BRZ ordered. EDMS EDMS
--- NOTE | 2024-03-22 17:08 | RAD REPORT ---
EXAM: Transvaginal OB HISTORY: VAGINAL BLEEDING COMPARISON: None TECHNIQUE: Multiple grayscale and color Doppler images were obtained in a transvaginal pelvic ultraso und. Spectral analysis of the Doppler waveforms of the ovaries were performed. FINDINGS: UTERUS: No IUP identified. The endometrial echo complex measures 1.9 cm. No free fluid is seen in the pelvis. RIGHT OVARY: Normal flow without focal mass. LEFT OVARY: Normal flow without focal mass. IMPRESSION: No IUP identified, therefore cannot exclude early first trimester , failed first trimester p regnancy, or early ectopic. Bilateral ovarian blood flow is present.
[2024-03-24 02:20] VITALS: BP 114/67; TEMP 97.7; O2SAT 100
== END 2024-03-22 16:35 | disposition home or self-care (01) ==
LOC: ER 14:43
DX: O03.9 Complete or unspecified spontaneous abortion without complication (principal); F41.9 Anxiety disorder, unspecified; F32.A Depression, unspecified; Z98.84 Bariatric surgery status; Z87.891 Personal history of nicotine dependence
CPT/HCPCS: 36415; 76817; 80048; 84702; 85025; 86900; 86901; 99283

== ENCOUNTER 2024-04-04 19:18 | Emergency (ER) | payer BC, OTHER ==
--- NOTE | 2024-04-04 20:12 | RAD REPORT ---
EXAM: Transvaginal OB HISTORY: Abd cramping, ;Vaginal bleeding COMPARISON: 03/22/2024 TECHNIQUE: Multiple grayscale and color Doppler images were obtained in a transvaginal pelvic ultraso und. Spectral analysis of the Doppler waveforms of the ovaries were performed. FINDINGS: UTERUS: No IUP identified. No free fluid is seen in the pelvis. RIGHT OVARY: Normal flow without focal mass. LEFT OVARY: Normal flow without focal mass. IMPRESSION: No IUP identified similar to 03/22/2024. Correlate with beta hCG. This may reflect a faile d first trimester .
[2024-04-04 20:46] LABS: Absolute Eosinophils 0.1 K/uL (0-0.5); Absolute Lymphocytes (CBC) 2.5 K/uL (0.7-4.9); Absolute Monocytes 0.4 K/uL (0.1-1.3); Absolute Neutrophil 4.4 K/uL (1.8-8.0); Basophils % 0.4 % (0-1.3); Eosinophils % 1.6 % (0-4.4); Hemoglobin 11.6 g/dL (12.0-15.0); Lymphocytes % 33.6 % (15.3-44.8); MCH 24.3 pg (27.0-35.0); MCHC 33.2 g/dL (32.0-36.0); MCV 73.3 fL (80-100); MPV 10.7 fL (7.6-11.3); Monocytes % 5.7 % (3.3-12.3); Neutrophils % 58.7 % (41.7-73.7); Nucleated Red Blood Cells % 0.1 % (0-0); Platelets 185 thou/uL (152-406); RBC Red Blood Cell Count 4.77 M/uL (3.86-4.86); Red Cell Distribution Width 17.3 % (12.1-15.2)
[2024-04-04 20:54] LABS: Specific Gravity 1.023 (1.005-1.030); Specific Gravity 1.028 (1.005-1.030); Urine Bacteria <20 /HPF (<20); Urine Bilirubin NEGATIVE (Negative); Urine Blood 3+ (Negative); Urine Clarity Extremely Turbid (Clear); Urine Color Light-Orange (Yellow); Urine Crystals Unidentified Moderate /HPF (None Seen); Urine Culture Reflex Order REFLEXED; Urine Glucose NEGATIVE (Negative); Urine Ketones NEGATIVE (Negative); Urine Microscopic Reflex YN ORDER UMIC; Urine Mucus Slight /HPF (None Seen); Urine Nitrite NEGATIVE (Negative); Urine Protein TRACE (Negative); Urine RBC >50 /HPF (None Seen); Urine Urobilinogen Normal (Normal); Urine WBC 20-50 /HPF (<5)
[2024-04-04 21:05] LABS: Anion Gap 6.8 mEq/L (5.0-15.0); BUN Blood Urea Nitrogen 13 mg/dL (7-18); Bicarbonate 29 mEq/L (21-32); Glomerular Filtration Rate 108 ml/min (=/>90); Glucose Level 89 mg/dL (74-106); Potassium 3.8 mEq/L (3.5-5.1); Sodium Level 140 mEq/L (136-145)
[2024-04-04 21:56] LABS: HCG, Quantitative < 1 mIU/mL (1-3)
--- NOTE | 2024-04-04 21:59 | ER ---
Nurse's Notes [facility] Name: Milvia Murdock Age: 23 yrs Sex: Female : 2000 Arrival Date: 04/04/2024 Time: 19:18 Bed 16 Private MD: Diagnosis: Abnormal uterine and vaginal bleeding, unspecified Presentation: 04/04 19:31 Chief complaint: Patient states: Vaginal bleeding onset 2 week ago. Pt states that she cm10 had a miscarriage 2 weeks ago and had stopped bleeding and started bleeding again yesterday. Pt reports passing clots with bright red blood. Pt denies any pain. Positive test on 03/19/24. Coronavirus screen: Client denies travel out of the [place] in the last 14 days. Ebola Screen: Patient denies travel to an Ebola-affected area in the 21 days before illness onset. Initial Sepsis Screen: Does the patient meet any 2 criteria? No. Patient's initial sepsis screen is negative. Does the patient have a suspected source of infection? No. Patient's initial sepsis screen is negative. Risk Assessment: Do you want to hurt yourself or someone else? Patient reports no desire to harm self or others. Onset of symptoms was April 04, 2024. 19:31 Method Of Arrival: Ambulatory 10 19:31 Acuity: KULDEEP 3 cm10 Triage Assessment: 19:34 General: Appears in no apparent distress. comfortable, Behavior is calm, cooperative. cm10 Pain: Denies pain. Neuro: No deficits noted. Level of Consciousness is awake, alert, obeys commands, Oriented to person, place, time, situation, Appropriate for age. Respiratory: No deficits noted. Airway is patent Respiratory effort is even, unlabored, Respiratory pattern is regular, symmetrical. : Reports vaginal bleeding that is bright red, with clots, heavy flow since onset 2 weeks ago. stopped for a few days and started again yesterday. 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 - Infectious Disease History:: Denies. - Social history:: Smoking status: Reported history of juuling and/or vaping. Screenin:41 [facility] ED Fall Risk Assessment (Adult) History of falling in the last 3 months, aa10 including since admission No falls in past 3 months (0 pts) Confusion or Disorientation No (0 pts) Intoxicated or Sedated No (0 pts) Impaired Gait No (0 pts) Mobility Assist Device Used No (0 pt) Altered Elimination No (0 pt) Score/Fall Risk Level 0 - 2 = Low Risk Oriented to surroundings, Maintained a safe environment, Educated pt \T\ family on fall prevention, incl call for assistance when getting out of bed, Provided non-skid footwear, Hourly rounding (assess needs \T\ fall precautionary measures) done. Abuse screen: Denies threats or abuse. Denies injuries from another. Nutritional screening: No deficits noted. Tuberculosis screening: No symptoms or risk factors identified. Assessment: 20:40 General: Appears in no apparent distress. comfortable, well groomed, well developed, aa10 Behavior is calm, cooperative, appropriate for age, quiet, Smells of Reports Denies fever, feeling ill. Neuro: No deficits noted. Level of Consciousness is awake, alert, obeys commands, Oriented to person, place, time, situation, Appropriate for age Dye Range Feeder are equal bilaterally Speech is normal. Cardiovascular: No deficits noted. Capillary refill < 3 seconds in bilateral. Respiratory: No deficits noted. Airway is patent. : No deficits noted. Urine is clear. Vital Signs: 19:31 BP 111 / 82; Pulse 60; Resp 15; Temp 98(O); Pulse Ox 100% on R/A; Weight 81.65 kg; cm10 Height 5 ft. 7 in. ; Pain 0/10; 22:17 BP 120 / 82; Pulse 86; Resp 18; Temp 98.6; Pulse Ox 99% on R/A; aa10 19:31 Body Mass Index 28.19 (81.65 kg, 170.18 cm) cm10 19:31 Pain Scale: Adult cm10 ED Course: 19:19 Patient arrived in ED. im 19:20 Chapis Olivera, ALEX is [facility]. kb 19:20 Arcadio Newton MD is Attending Physician. kb 19:33 Triage completed. cm10 19:34 Arm band placed on right wrist. cm10 20:02 US Transvaginal Ob In Process Unspecified. EDMS 20:39 Abo/rh Typing Sent. aa10 20:39 Basic Metabolic Panel Sent. aa10 20:39 CBC with Diff Sent. aa10 20:39 Test, Urine Sent. aa10 20:39 Quantitative Hcg Sent. aa10 20:39 Urinalysis w/ reflexes Sent. aa10 20:39 Inserted saline lock: 20 gauge in right antecubital area, using aseptic technique. aa10 20:43 Patient has correct armband on for positive identification. Allergy band placed. Fall aa10 risk band placed. Placed in gown. Bed in low position. Call light in reach. Side rails up X2. Provided Education on: about plan of care. 22:12 No provider procedures requiring assistance completed. IV discontinued. aa10 Administered Medications: No medications were administered Medication: 20:41 VIS not applicable for this client. aa10 Outcome: 21:59 Discharge ordered by . kb 22:18 Patient left the ED. aa10 04/05 01:56 Discharged to home ambulatory, aa10 Condition: good Discharge instructions given to patient, Instructed on discharge instructions, Signatures: Dispatcher [employer] EDVT Chapis Olivera FNP-C SENIOR PRIVATE CLIENT ADVISOR-Simi Mcdaniel Clarissa, RN RN cm10 Ben Velazco RN RN aa10 Corrections: (The following items were deleted from the chart) 04/04 19:34 19:31 Chief complaint: Patient states: Vaginal bleeding onset 2 week ago. Pt states cm10 that she had a miscarriage 2 weeks ago and had stopped bleeding and started bleeding again yesterday. Pt reports passing clots with bright red blood. Pt denies any pain. cm10
--- NOTE | 2024-04-04 21:59 | EDPHYS ---
Physician Documentation [facility] Name: Milvia Murdock Age: 23 yrs Sex: Female : 2000 Arrival Date: 04/04/2024 Time: 19:18 Bed 16 Private MD: ED Physician Arcadio Newton HPI: 04/04 21:58 This 23 yrs old Female presents to ER via Ambulatory with complaints of kb Vaginal Bleeding. 21:58 Patient is a 23-year-old female who presents for vaginal bleeding that started kb yesterday. Reports large clots. States she had a positive test on March 19, started bleeding on March 22 which lasted for about 4 days then resolved but started again yesterday. Reports cramping.. 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 - Infectious Disease History:: Denies. - Social history:: Smoking status: Reported history of juuling and/or vaping. ROS: 21:57 Constitutional: As per HPI kb Exam: 21:57 Constitutional: This is a well developed, well nourished patient who is awake, alert, kb and in no acute distress. Head/Face: Normocephalic, atraumatic. ENT: Moist Mucous membranes Cardiovascular: Regular rate Respiratory: Respirations even and unlabored. No increased work of breathing. Talking in full sentences Abdomen/GI: Soft, non-tender. No distention Back: No spinal tenderness. No costovertebral tenderness. Full range of motion. Skin: Warm, dry with normal turgor. Normal color. MS/ Extremity: Pulses equal, no cyanosis. Neurovascular intact. Full, normal range of motion. Neuro: Awake and alert, GCS 15, oriented to person, place, time, and situation. Vital Signs: 19:31 BP 111 / 82; Pulse 60; Resp 15; Temp 98(O); Pulse Ox 100% on R/A; Weight 81.65 kg; cm10 Height 5 ft. 7 in. ; Pain 0/10; 22:17 BP 120 / 82; Pulse 86; Resp 18; Temp 98.6; Pulse Ox 99% on R/A; aa10 19:31 Body Mass Index 28.19 (81.65 kg, 170.18 cm) cm10 19:31 Pain Scale: Adult cm10 MDM: 19:20 Medical Screening Exam initiated kb 21:57 Differential diagnosis: menorrhea, threatened Ab, complete Ab, nonspecific abdominal kb pain, ovarian cyst. Data reviewed: vital signs, nurses notes. Counseling: I had a detailed discussion with the patient and/or guardian regarding the historical points, exam findings, and any diagnostic results supporting the discharge/admit diagnosis, lab results, radiology results, the need for outpatient follow up, an OB/Gyne specialist, to return to the emergency department if symptoms worsen or persist or if there are any questions or concerns that arise at home. 04/04 19:36 Order name: Abo/rh Typing; Complete Time: 21:04 kb 04/04 19:36 Order name: Basic Metabolic Panel; Complete Time: 21:57 kb 04/04 19:36 Order name: CBC with Diff; Complete Time: 20:58 kb 04/04 19:36 Order name: Test, Urine; Complete Time: 20:58 kb 04/04 19:36 Order name: Quantitative Hcg; Complete Time: 21:57 kb 04/04 19:36 Order name: Urinalysis w/ reflexes; Complete Time: 20:58 kb 04/04 20:57 Order name: Urine Culture EDVA 04/04 19:36 Order name: US Transvaginal Ob; Complete Time: 20:12 kb 04/04 19:36 Order name: IV Saline Lock; Complete Time: 20:39 kb 04/04 19:36 Order name: Labs collected and sent; Complete Time: 20:39 kb 04/04 19:36 Order name: NPO; Complete Time: 20:44 kb Administered Medications: No medications were administered Disposition: 04/05 08:56 Co-signature as Attending Physician, Arcadio Newton MD I reviewed the patient's care rt provided by the Advanced Practice Provider and agree with the diagnosis and treatment plan. Disposition Summary: 04/04/24 21:59 Discharge Ordered Notes: Location: Home kb Condition: Stable kb Diagnosis - Abnormal uterine and vaginal bleeding, unspecified kb Followup: kb - With: Emergency Department - When: As needed - Reason: Worsening of condition Followup: kb - With: Private Physician - When: 2 - 3 days - Reason: Recheck today's complaints, Continuance of care, Re-evaluation by your physician Discharge Instructions: - Discharge Summary Sheet kb - Abnormal Uterine Bleeding, [id number] kb Forms: - Medication Reconciliation Form kb - Antibiotic Education kb - Prescription Opioid Use kb - Patient Portal Instructions kb - Leadership Thank You Letter kb Signatures: Dispatcher [employer] EDChapis Harman, PIZZA DRIVER-C PIZZA DRIVER-Ckb Arcadio Newton MD MD rt Milka Flores, RN RN cm10 Ben Velazco, RN RN aa10
[2024-04-05 10:02] VITALS: BP 120/82; TEMP 98.6; O2SAT 99
== END 2024-04-04 22:18 | disposition home or self-care (01) ==
LOC: ER 19:18
DX: N93.9 Abnormal uterine and vaginal bleeding, unspecified (principal); J45.909 Unspecified asthma, uncomplicated; F17.290 Nicotine dependence, other tobacco product, uncomplicated; Z88.8 Allergy status to other drugs, medicaments and biological substances
CPT/HCPCS: 36415; 76817; 80048; 81001; 81025; 84702; 85025; 86900; 86901; 87086; 87088